=== PATIENT | female | born 1950 | race Caucasian/White ===

== ENCOUNTER → 2020-02-01 09:48 | Outpatient (BNVA) | payer MEDICARE, SELFPAY | PROVIDERS: PCP Internal Medicine; Visit Provider Internal Medicine Endocrinology, Diabetes & Metabolism | DX: Z13.89 Encounter for screening for other disorder (principal) | CPT/HCPCS: Q3014 ==

== ENCOUNTER 2020-02-10 08:00 | Outpatient (REF) | payer MEDICARE, SELFPAY ==
[2020-02-10 11:56] LABS: Alanine Aminotransferase 19 U/L (0-31); Albumin Level 4.6 g/dL (3.5-5.0); Alkaline Phosphatase 115 U/L (39-117); Anion Gap 12 (12-20); Aspartate Amino Transferase 18 U/L (5-31); Bilirubin Total 0.5 mg/dL (0.0-1.0); Blood Urea Nitrogen 15 mg/dL (9-16); Calcium 9.4 mg/dL (8.4-10.2); Carbon Dioxide 27 mmol/L (22-29); Chloride 104 mmol/L (96-108); Cholesterol 132 mg/dL; Estimated Glomerular Filt Rate > 60; Glucose Fasting 119 mg/dL (60-99); HDL Cholesterol 52 mg/dL; LDL Cholesterol Calculated 66 mg/dl; Potassium 4.3 mmol/l (3.3-5.1); Sodium 139 mmol/L (135-145); Total Protein 6.8 g/dL (6.5-8.0); Triglycerides 72 mg/dL
[2020-02-10 12:20] LABS: Free T4 (Free Thyroxine) 0.95 ng/dL (0.71-1.85); Thyroid Stimulating Hormone 1.66 uIU/mL (0.32-4.0)
[2020-02-10 12:24] LABS: Creatinine Urine 77.73 mg/dL; Microalbum/Creatinine Ratio Ur 7.7 ug/mg cr
[2020-02-10 13:01] LABS: Estimated Average Glucose 120 mg/dL; Hemoglobin A1c % 5.8 %
[2020-02-12 01:42] LABS: LDL Cholesterol Direct 66 mg/dL (<100)
== END 2020-02-10 08:01 | disposition home or self-care (01) ==
LOC: HO.HMGCLDS 08:00
PROVIDERS: PCP Internal Medicine; Referring Provider Internal Medicine; Visit Provider Internal Medicine Endocrinology, Diabetes & Metabolism
DX: E11.9 Type 2 diabetes mellitus without complications (principal); Z20.828 Contact with and (suspected) exposure to other viral communicable diseases
CPT/HCPCS: 80053; 80061; 82043; 83036; 83721; 84439; 84443; C9803; U0003

== ENCOUNTER 2020-05-30 09:26 | Outpatient (REF) | payer MEDICARE, SELFPAY | END 2020-05-30 09:27 | disposition home or self-care (01) | LOC: HO.LAB 09:26 | PROVIDERS: Visit Provider Nurse Practitioner Family | DX: Z13.89 Encounter for screening for other disorder (principal) ==

== ENCOUNTER 2020-06-07 11:37 | Outpatient (REF) | payer MEDICARE, SELFPAY | END 2020-06-07 11:38 | disposition home or self-care (01) | LOC: HO.LAB 11:37 | PROVIDERS: Visit Provider Nurse Practitioner Family | DX: Z13.89 Encounter for screening for other disorder (principal) ==

== ENCOUNTER 2020-06-07 11:40 | Outpatient (REF) | payer MEDICARE, SELFPAY ==
[2020-06-07 13:50] LABS: Basophils Absolute Auto 0.1 X10*3/uL (0.0-0.2); Basophils Percent Auto 0.8 % (0-2); Eosinophils Absolute Auto 0.4 X10*3/uL (0.0-0.4); Eosinophils Percent Auto 2.9 % (0-4); Hematocrit 42.4 % (37-47); Hemoglobin 13.8 g/dl (12.0-16.0); Imm Gran Abs Auto 0.03 X10*3/uL (0.00-0.03); Imm Gran Pct Auto 0.3 % (0.0-0.4); Lymphocytes Absolute Auto 2.2 X10*3/uL (1.2-4.9); Lymphocytes Percent Auto 18.8 % (20-40); MANUAL DIFF FLAG NO; Mean Corpuscular HGB Conc 32.5 g/dl (31.0-35.0); Mean Corpuscular Hemoglobin 30.2 pg (27.0-33.0); Mean Corpuscular Volume 92.8 fL (80-98); Mean Platelet Volume 9.1 fL (9.4-12.3); Monocytes Percent Auto 8.3 % (2-11); Neutrophils Absolute Auto 8.2 X10*3/uL (2.0-8.3); Neutrophils Percent Auto 68.9 % (45-73); Platelet Count 452 X10*3/uL (160-400); Red Blood Count 4.57 X10*6/uL (4.20-5.50); Red Cell Distribution Width 11.9 % (11.0-16.0); White Blood Count 11.9 X10*3/uL (4.8-10.8)
[2020-06-07 14:17] LABS: Alanine Aminotransferase 12 U/L (0-31); Albumin Level 4.6 g/dL (3.5-5.0); Alkaline Phosphatase 112 U/L (39-117); Anion Gap 18 (12-20); Aspartate Amino Transferase 15 U/L (5-31); Bilirubin Total 0.5 mg/dL (0.0-1.0); Blood Urea Nitrogen 15 mg/dL (9-16); Calcium 9.8 mg/dL (8.4-10.2); Carbon Dioxide 25 mmol/L (22-29); Chloride 100 mmol/L (96-108); Estimated Glomerular Filt Rate > 60; Glucose Random 119 mg/dL (60-115); Potassium 4.3 mmol/L (3.3-5.1); Sodium 139 mmol/L (135-145); Total Protein 7.1 g/dL (6.5-8.0)
== END 2020-06-07 11:41 | disposition home or self-care (01) ==
LOC: HO.HMGCLDS 11:40
PROVIDERS: PCP Internal Medicine; Visit Provider Nurse Practitioner Family
DX: R10.9 Unspecified abdominal pain (principal); R31.21 Asymptomatic microscopic hematuria
CPT/HCPCS: 36415; 80053; 85025

== ENCOUNTER 2020-06-07 14:21 | Outpatient (REF) | payer MEDICARE, SELFPAY ==
--- NOTE | ~2020-06-07 | US_ITS ---
EXAMINATION: US RETROPERITONEAL LIMITED (RENAL ONLY) CLINICAL INFORMATION: Microscopic hematuria. Left flank pain.. COMPARISON: None TECHNIQUE: Grayscale and color imaging of the kidneys FINDINGS: RIGHT KIDNEY: 11.6 x 4.1 x 4.6 cm (SAG x AP x TRV). The kidney is normal in size, contour, and echogenicity. Renal cortical thickness is normal. There is a 2 mm stone in mid pole. No focal parenchymal lesions. No hydronephrosis. LEFT KIDNEY: 12.1 x 4.9 x 5.6 cm (SAG x AP x TRV). The kidney is normal in size, contour, and echogenicity. Renal cortical thickness is normal. There is mild hydronephrosis. There is a 10 x 5 x 7 mm stone in the left UPJ region/proximal ureter. There is a 3 x 4 mm stone in the upper pole. No renal mass. US/US renal BI IMPRESSION: Mild left hydronephrosis from a 10 x 5 x 7 mm left UPJ stone. Small bilateral renal stones..
== END 2020-06-07 14:22 | disposition home or self-care (01) ==
LOC: HO.HMGCX 14:21
PROVIDERS: Visit Provider Nurse Practitioner Family
DX: R10.9 Unspecified abdominal pain (principal); R31.21 Asymptomatic microscopic hematuria
CPT/HCPCS: 76775

== ENCOUNTER → 2020-06-16 09:53 | Outpatient (BNVA) | payer MEDICARE, SELFPAY | PROVIDERS: PCP Internal Medicine; Visit Provider Urology | DX: N20.0 Calculus of kidney (principal) | CPT/HCPCS: Q3014 ==

== ENCOUNTER → 2020-07-05 09:46 | Outpatient (BNVA) | payer OTHER, SELFPAY | PROVIDERS: PCP Internal Medicine; Visit Provider Hospitalist | DX: J41.1 Mucopurulent chronic bronchitis (principal); K21.9 Gastro-esophageal reflux disease without esophagitis | CPT/HCPCS: 99212 ==

== ENCOUNTER 2020-07-12 07:36 | Day surgery (SDC) | payer OTHER, SELFPAY ==
[2020-07-06 13:28] VITALS: BMI 24.3
--- NOTE | 2020-07-11 12:19 | P.CONAN_ITS ---
Documented by User: Jackie Castellanos 07/11/20 12:21 HPI - Anesthesia Eval Consult details Narrative: 70yo F for Left Lithotripsy ESW No previous ESWL on record PMFSH Active Problems Active Problems: All Active Problems (Updated 07/06/20 @ 13:32 by Irina Fernandez) Hematuria (Acute) Flank pain (Acute) Renal stones (Acute) Hydronephrosis (Acute) Diabetic polyneuropathy associated with type 2 diabetes mellitus (Acute) Depression (Acute) GERD (gastroesophageal reflux disease) (Acute) COPD (chronic obstructive pulmonary disease) (Acute) Overweight (BMI 25.0-29.9) (Acute) Dyslipidemia (Acute) Vitamin D deficiency (Acute) Non-toxic multinodular goiter (Acute) Diabetes type 2, controlled (Acute) Past Medical History Medical History (Updated 07/12/20 @ 08:04 by Kathy Lewis) Back pain COPD (chronic obstructive pulmonary disease) Cough Depression Diabetes type 2, controlled Diabetic polyneuropathy associated with type 2 diabetes mellitus Dyslipidemia GERD (gastroesophageal reflux disease) Non-toxic multinodular goiter Overweight (BMI 25.0-29.9) Vitamin D deficiency Family History Family History Father No problems noted. Mother Uterine cancer Maternal Uncle Diabetes mellitus Maternal Aunt Diabetes mellitus Surgical History Surgical History History of ganglion cyst Hx of cholecystectomy Hx of hysterectomy Social History Social History Alcohol intake: never Smoking Status: Former smoker Are you DNR?: No Advance Directives: No Advance Directives Information Provided: No Advance Directives on File: No Meds Allergies Allergy/AdvReac Type Severity Reaction Status Date / Time albuterol Allergy Severe panic Verified 07/05/20 10:05 attacks naproxen Allergy Severe rash Verified 07/05/20 10:05 Home Medications Medication Instructions Recorded Confirmed Last Taken Type blood sugar diagnostic #10 ea 02/01/20 06/30/20 Unknown History 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 sensor #3 ea 02/01/20 06/30/20 Unknown History dorzolamide 2 % eye drops 1 drp OPHTHALMIC (EYE) BID 02/01/20 07/06/20 Unknown History lancets 28 gauge #100 ea 02/01/20 06/30/20 Unknown History umeclidinium 62.5 mcg/actuation 1 inh INHALATION DAILY PRN 02/01/20 07/06/20 Unknown History blister powder for inhalation aspirin [Aspir-81] 81 mg PO DAILY 07/06/20 07/06/20 Unknown History netarsudil-latanoprost [Rocklatan] 1 drp OPHTHALMIC (EYE) BEDTIME 07/06/20 07/06/20 Unknown History roflumilast [Daliresp] 1 tab PO DAILY 07/06/20 07/06/20 Unknown History Exam Exam Date and Time: July 11, 2020 1219 Height,Weight and Vital Signs: Height 5 ft 2 in Weight 60.328 kg Assessment and Plan Assessment Anesthesia Assessment: Chart Reviewed Documented by User: Kathy Lewis 07/12/20 08:36 [facility] Past Medical History Medical History (Updated 07/12/20 @ 08:04 by Kathy Lewis) Back pain COPD (chronic obstructive pulmonary disease) Cough Depression Diabetes type 2, controlled Diabetic polyneuropathy associated with type 2 diabetes mellitus Dyslipidemia GERD (gastroesophageal reflux disease) Non-toxic multinodular goiter Overweight (BMI 25.0-29.9) Vitamin D deficiency Family History Family History Father No problems noted. Mother Uterine cancer Maternal Uncle Diabetes mellitus Maternal Aunt Diabetes mellitus Family history of problems with anesthesia: No Surgical History Surgical History History of ganglion cyst Hx of cholecystectomy Hx of hysterectomy History of Problems with Anesthesia: No Social History Social History Alcohol intake: never Smoking Status: Former smoker Are you DNR?: No Advance Directives: No Advance Directives Information Provided: No Advance Directives on File: No Meds Allergies Allergy/AdvReac Type Severity Reaction Status Date / Time albuterol Allergy Severe panic Verified 07/05/20 10:05 attacks naproxen Allergy Severe rash Verified 07/05/20 10:05 Home Medications Medication Instructions Recorded Confirmed Last Taken Type blood sugar diagnostic #10 ea 02/01/20 06/30/20 Unknown History 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 sensor #3 ea 02/01/20 06/30/20 Unknown History dorzolamide 2 % eye drops 1 drp OPHTHALMIC (EYE) BID 02/01/20 07/06/20 Unknown History lancets 28 gauge #100 ea 02/01/20 06/30/20 Unknown History umeclidinium 62.5 mcg/actuation 1 inh INHALATION DAILY PRN 02/01/20 07/06/20 Unknown History blister powder for inhalation aspirin [Aspir-81] 81 mg PO DAILY 07/06/20 07/06/20 Unknown History netarsudil-latanoprost [Rocklatan] 1 drp OPHTHALMIC (EYE) BEDTIME 07/06/20 07/06/20 Unknown History roflumilast [Daliresp] 1 tab PO DAILY 07/06/20 07/06/20 Unknown History Exam Height,Weight and Vital Signs: Vital Signs Temp Pulse Resp BP Pulse Ox 07/12/20 08:00 98.4 F 84 20 157/69 H 96 Pertinent Lab Results Pertinent Lab Results: Lab Results 07/12/20 Range/Units 07:58 POC Glucose 120 H (60-115) mg/dL Airway Mallampati Class: II TM Dist: >3cm Neck ROM: Full Denture: Upper and Lower Heart: RRR Lungs: CTAB Assessment and Plan Assessment Anesthesia Assessment: Anesthesia Plan Discussed and Chart Reviewed Final Anesthetic Review NPO: Yes ASA Class: III Final Preanesthetic Review: No Changes in Pt Med Stat, Meds/Allgs Chart Reviewed, Consent Obtained/Reviewed and Anes Risks/Benef Reviewed Patient Risk: Intermediate Procedure Risk: Low Assessment/Block/Sedation in SS: Assess/Block/Sedation-SS Anesthetic Plan Anesthetic Plan: MAC: Disposition: Standard PACU
--- NOTE | ~2020-07-12 | XR_ITS ---
EXAMINATION: XR ABDOMEN KUB CLINICAL INDICATION: Stones COMPARISON: Previous renal ultrasound May 2020 TECHNIQUE: AP view of the abdomen. FINDINGS: There is a 5 x 7 mm density projecting over the central left kidney questionable for a stone. There are small bilateral pelvic calcifications, question representing calcified phleboliths. Bowel gas pattern is normal. There is mild curvature of the lower lumbar sacral spine to the right and degenerative change. XR/XR KUB IMPRESSION: 5 x 7 mm central left renal stone.
[2020-07-12 08:00] VITALS: BP 157/69; PULSE 84; RESP 20; TEMP 36.9; O2SAT 96
[2020-07-12 08:03] LABS: Glucose, Whole Blood 120 mg/dL (60-115)
[2020-07-12] MEDS: Lactated Ringers 1,000 ML 100 ML IVCONT (08:07)
[2020-07-12] MEDS: Acetaminophen 325 MG TABLET 650 MG PO (08:07)
--- NOTE | 2020-07-12 09:19 | MHC.SHP ---
Pre-Procedural Eval Section A The patient is an INPATIENT: No The History & Physical has been completed within 30 days and I have reviewed it.: Yes Section B Chief Complaint: calculus of kidney Allergies: Allergies Allergy/AdvReac Type Severity Reaction Status Date / Time albuterol Allergy Severe panic Verified 07/05/20 10:05 attacks naproxen Allergy Severe rash Verified 07/05/20 10:05 Plan Diagnosis/Plan: Unchanged (left ESWL) I have reviewed the history and physical and performed a pertinent physical examination on my patient. No changes have occurred unless specified.
[2020-07-12 10:04] VITALS: BP 157/65; PULSE 58; RESP 12; TEMP 36.6; O2SAT 97
[2020-07-12 10:19] VITALS: BP 156/69; PULSE 61; RESP 16; O2SAT 100
[2020-07-12 10:34] VITALS: BP 152/60; PULSE 56; RESP 16; TEMP 36.6; O2SAT 97
--- NOTE | 2021-06-28 14:40 | W.PM.OPN ---
Operative Note Operative Note Date of Service: 07/12/20 Narrative: PreOperative Diagnosis: Left Renal stones Post Operative Diagnosis: Left Renal stones Procedure: Left ESWL Surgeon: Dr Jona Lomax Anesthesia: mac/sedation Indications for procedure: The patient understands ESWL may be a staged procedure and subsequent intervention may be required based on imaging after ESWL. They also understand there is a risk of bleeding to the kidney, infection, damage to adjacent organs, and stone migration following the procedure. - Imaging left 8 mm stone upper pole Procedure: After informed consent was verified the patient was brought to the operating room and placed in a supine position. Anesthesia was performed per protocol. Safety pause time-out was performed. Imaging was displayed in the room and laterality confirmed. ESWL was performed. The 1st 500 shocks were performed at 60 hertz. These were performed with increasing power. Once maximum power was reached the rate was increased to 180 hertz. A total of 2500 shocks were given. Targetted imaging with ultrasound/fluoroscopy showed stone smudging suggestive of disintegration. The patient tolerated the procedure well and was transferred to the recovery area upon completion. Post procedure imaging will be organized. There was no evidence for flank discoloration.
== END 2020-07-12 11:10 | disposition home or self-care (01) ==
PROVIDERS: PCP Internal Medicine; Visit Provider Urology
PROC: (CPT 50590; principal; 2020-07-12 09:20)
DX: N20.0 Calculus of kidney (principal); J44.9 Chronic obstructive pulmonary disease, unspecified; E11.42 Type 2 diabetes mellitus with diabetic polyneuropathy; Z90.49 Acquired absence of other specified parts of digestive tract; Z87.891 Personal history of nicotine dependence; Z79.84 Long term (current) use of oral hypoglycemic drugs; Z79.899 Other long term (current) drug therapy; Z88.8 Allergy status to other drugs, medicaments and biological substances
CPT/HCPCS: 50590; 74018; 82947; J2250; J3010

== ENCOUNTER 2020-07-31 09:20 | Outpatient (REF) | payer OTHER, SELFPAY ==
--- NOTE | ~2020-07-31 | US_ITS ---
EXAMINATION: US RETROPERITONEAL LIMITED (RENAL ONLY) CLINICAL INFORMATION: Calculus of kidney. COMPARISON: KUB dated 07/12/2020. Renal ultrasound dated 06/07/2020. TECHNIQUE: Real-time imaging of the kidneys. FINDINGS: RIGHT KIDNEY: 11.7 x 4.3 x 6.2 cm (SAG x AP x TRV). The kidney is normal in size, contour, and echogenicity. Renal cortical thickness is normal. There were 2 small stones in the midpole measuring 4 mm and 3 mm. No focal parenchymal lesions or hydronephrosis. LEFT KIDNEY: 10.9 x 5.7 x 4.2 cm (SAG x AP x TRV). The kidney is normal in size, contour, and echogenicity. Renal cortical thickness is normal. There is question of a 1.4 x 1.1 x 1.1 cm peripelvic cyst in the lower pole. No renal calculi or hydronephrosis. US/US renal BI IMPRESSION: Question small right renal stones. No left renal stone seen. Previously identified left hydronephrosis has resolved.
== END 2020-07-31 09:21 | disposition home or self-care (01) ==
LOC: HO.US 09:20
PROVIDERS: Visit Provider Urology
DX: N20.0 Calculus of kidney (principal)
CPT/HCPCS: 76775

== ENCOUNTER → 2020-08-01 08:21 | Outpatient (BNVA) | payer OTHER, SELFPAY | PROVIDERS: PCP Internal Medicine; Visit Provider Internal Medicine Endocrinology, Diabetes & Metabolism | DX: E11.42 Type 2 diabetes mellitus with diabetic polyneuropathy (principal); E04.2 Nontoxic multinodular goiter; E55.9 Vitamin D deficiency, unspecified; E78.5 Hyperlipidemia, unspecified; E66.3 Overweight | CPT/HCPCS: 82947; 99212 ==

== ENCOUNTER → 2020-08-02 09:54 | Outpatient (BNVA) | payer OTHER, SELFPAY | PROVIDERS: PCP Internal Medicine; Visit Provider Urology | DX: Z13.89 Encounter for screening for other disorder (principal) | CPT/HCPCS: Q3014 ==

== ENCOUNTER 2020-11-28 09:59 | Outpatient (REF) | payer OTHER, SELFPAY ==
--- NOTE | ~2020-11-28 | US_ITS ---
EXAMINATION: US RETROPERITONEAL LIMITED (RENAL ONLY) CLINICAL INFORMATION: Calculus of kidney. COMPARISON: Renal ultrasound 07/31/2020 and 06/07/2020. X-ray abdomen KUB 07/12/2020. TECHNIQUE: Real-time imaging of the kidneys. FINDINGS: RIGHT KIDNEY: 11.6 x 5.2 x 6.6 cm (SAG x AP x TRV). The kidney is normal in size, contour, and echogenicity. Renal cortical thickness is normal. No focal parenchymal lesions or hydronephrosis. There are several echogenic stones in the midpole measuring 0.21 x 0.1 cm 0.20, 0.26 x 0.19 x 0.21 cm and 0.25 x 0.20 x 0.29 cm. There is no caliectasis or hydronephrosis. LEFT KIDNEY: 11.4 x 4.4 x 6.0 cm (SAG x AP x TRV). The kidney is normal in size, contour, and echogenicity. Renal cortical thickness is normal. No focal parenchymal lesions or hydronephrosis. There is an echogenic stone in midpole measuring 0.26 x 0.27 x 0.24 cm. A right ureteral jet is visualized. A left ureteral jet is not visualized in the bladder the bladder was not imaged. US/US renal BI IMPRESSION: Bilateral nonobstructive echogenic midpole renal calculi. No caliectasis or nephrosis. Left ureteral jet was not seen in the bladder. Right ureteral jet was seen.
== END 2020-11-28 10:00 | disposition home or self-care (01) ==
LOC: HO.HMGCX 09:59
PROVIDERS: PCP Internal Medicine; Visit Provider Urology
DX: N20.0 Calculus of kidney (principal)
CPT/HCPCS: 76775

== ENCOUNTER → 2020-12-13 12:45 | Outpatient (BNVA) | payer OTHER, SELFPAY | PROVIDERS: Visit Provider Urology | DX: Z13.89 Encounter for screening for other disorder (principal) | CPT/HCPCS: Q3014 ==

== ENCOUNTER 2021-01-22 09:59 | Outpatient (REF) | payer OTHER, SELFPAY ==
--- NOTE | ~2021-01-22 | US_ITS ---
EXAMINATION: US THYROID CLINICAL INFORMATION: Nontoxic multinodular goiter. COMPARISON: Thyroid ultrasound 11/25/2019 and 07/28/2018. TECHNIQUE: Linear transducer grayscale and color Doppler examination with attention to the region of the thyroid. FINDINGS: SIZE: Measurements of the thyroid lobes and nodules are given in sagittal, anteroposterior and transverse dimensions respectively. Right Thyroid Lobe: 4.4 x 1.5 x 1.3 cm, volume 4.5 mL. Previously 4.2 x 1.5 x 1.3 cm, volume 4.2 mL. Parenchyma: The gland echotexture is homogeneous. Thyroid vascularity is increased. Left Thyroid Lobe: 3.4 x 1.5 x 1.3 cm, volume 3.5 mL. Previously 3.6 x 1.2 x 1.0 cm, volume 2.3 mL. Parenchyma: The gland echotexture is homogeneous. Thyroid vascularity is normal. Isthmus: 0.3 cm in maximum AP dimension. Previously 0.2 cm. There are multiple bilateral thyroid nodules. Estimated total number of nodules greater than or equal to 1 cm: 1. Copier Operator nodules are described as follows: 1. Location: Right mid pole. Size: 0.6 x 0.4 x 0.5 cm, volume 0.06 mL. Previously: 0.5 x 0.3 x 0.4 cm, volume 0.03 mL. Nodule characteristics: Composition: Mixed cystic and solid (1). Echogenicity: Anechoic (0). Shape: Not taller than wide (0). Margins: The Echogenic Foci: Punctate echogenic foci (3). ACR TI-RADS total points: 4 ACR TI-RADS category: 4 Significant change in size (>/= 20% in 2 dimensions and minimal increase of 2 mm or 50% or greater increase in volume): Change in features: Change in ACR TI-RADS risk category: 2. Location: Right low/lateral. Size: 1.4 x 0.8 x 0.8 cm, volume 0.44 mL. Previously: 1.3 x 0.8 x 0.8 cm, volume 0.44 mL. Nodule characteristics: Composition: Solid/almost completely solid (2). Echogenicity: Cannot be determined (1). Shape: Not taller than wide (0). Margins: Smooth (0). Echogenic Foci: Punctate echogenic foci (3). ACR TI-RADS total points: 6 ACR TI-RADS category: 4 Significant change in size (>/= 20% in 2 dimensions and minimal increase of 2 mm or 50% or greater increase in volume): Change in features: Change in ACR TI-RADS risk category: 3. Location: Left upper pole. Size: 0.8 x 0.6 x 0.7 cm, volume 0.17 mL. Previously: 0.8 x 0.6 x 0.7 cm, volume 0.17 mL. Nodule characteristics: Composition: Mixed cystic and solid (1). Echogenicity: Hypoechoic (2). Shape: Not taller than wide (0). Margins: Smooth (0). Echogenic Foci: Punctate echogenic foci (3). ACR TI-RADS total points: 6 ACR TI-RADS category: 4 Significant change in size (>/= 20% in 2 dimensions and minimal increase of 2 mm or 50% or greater increase in volume): Change in features: Change in ACR TI-RADS risk category: 4. Location: Left lower pole. Size: 0.6 x 0.3 x 0.4 cm, volume 0.04 mL. Previously: 0.5 x 0.3 x 0.4 cm, volume 0.03 mL. Nodule characteristics: Composition: Spongiform (0). ACR TI-RADS total points: 0 ACR TI-RADS category: 1 Significant change in size (>/= 20% in 2 dimensions and minimal increase of 2 mm or 50% or greater increase in volume): Change in features: Change in ACR TI-RADS risk category: 5. Location: Right isthmus. Size: 0.6 x 0.3 x 0.6 cm, volume 0.06 mL. Previously: 0.6 x 0.3 x 0.7 cm, volume 0.07 mL. Nodule characteristics: Composition: Cystic(0). ACR TI-RADS total points: 0 ACR TI-RADS category: 1 Significant change in size (>/= 20% in 2 dimensions and minimal increase of 2 mm or 50% or greater increase in volume): Change in features: Change in ACR TI-RADS risk category: NODES: No lymphadenopathy is seen in the tissue surrounding the thyroid gland. US/US thyroid IMPRESSION: Stable bilateral thyroid nodules. According to the TI RADS criteria, fine-needle aspirations of the nodule in the lower pole of the right lobe and ultrasound follow-up of the nodule in the upper pole of the left lobe recommended. ACR TI-RADS RECOMMENDATION REFERENCE: Ultrasound-guided fine-needle aspiration, followup ultrasound, no further follow up. * TR1 (0 point) and TR 2 (2 points): No FNA or follow up * TR3 (3 points): FNA if more than or equal to 2.5 cm in maximum dimension, followup ultrasound in 1, 3 and 5 years if 1.5 to 2.4 cm in maximum dimension. * TR4 (4-6 points): FNA if more than or equal to 1.5 cm in maximum dimension, followup ultrasound in 1, 2, 3 and 5 years if 1 to 1.4 cm in maximum dimension. * TR5 (more than or equal to 7 points): FNA if more than or equal to 1 cm in maximum dimension, followup ultrasound every year for 5 years if 0.5 to 0.9 cm in maximum dimension. * TR3, TR4 or TR5 nodules that are below the size threshold for follow up receive no follow up.
== END 2021-01-22 10:00 | disposition home or self-care (01) ==
LOC: HO.HMGCX 09:59
PROVIDERS: PCP Internal Medicine; Visit Provider Internal Medicine
DX: E04.2 Nontoxic multinodular goiter (principal)
CPT/HCPCS: 76536

== ENCOUNTER → 2021-02-08 08:49 | Outpatient (BNVA) | payer OTHER, SELFPAY | PROVIDERS: PCP Internal Medicine; Visit Provider Internal Medicine | DX: E04.2 Nontoxic multinodular goiter (principal) | CPT/HCPCS: 99212 ==

== ENCOUNTER 2021-05-10 09:45 | Outpatient (REF) | payer OTHER, SELFPAY ==
--- NOTE | ~2021-05-10 | US_ITS ---
EXAMINATION: US RETROPERITONEAL LIMITED (RENAL ONLY) CLINICAL INFORMATION: Calculus of kidney. COMPARISON: Renal ultrasound 11/28/2020 and 07/31/2020 TECHNIQUE: Real-time imaging of the kidneys. FINDINGS: RIGHT KIDNEY: 12.4 x 3.6 x 6.3 cm (SAG x AP x TRV). The kidney is normal in size, contour, and echogenicity. Renal cortical thickness is normal. No focal parenchymal lesions or hydronephrosis. Echogenic structures likely nonobstructing stones measuring up to 2 mm and 3 mm middle pole. LEFT KIDNEY: 10.0 x 3.7 x 4.9 cm (SAG x AP x TRV). The kidney is normal in size, contour, and echogenicity. Renal cortical thickness is normal. No focal parenchymal lesions or hydronephrosis. Echogenic structures in the left kidney likely nonobstructing stone mostly middle pole measuring up to 3 mm and 3 mm. US/US renal BI IMPRESSION: Bilateral nonobstructing kidney stones. No hydronephrosis..
== END 2021-05-10 09:46 | disposition home or self-care (01) ==
LOC: HO.HMGCX 09:45
PROVIDERS: Visit Provider Urology
DX: N20.0 Calculus of kidney (principal)
CPT/HCPCS: 76775

== ENCOUNTER → 2021-06-14 14:00 | Outpatient (BNVA) | payer OTHER, SELFPAY | DX: N20.0 Calculus of kidney (principal); E11.42 Type 2 diabetes mellitus with diabetic polyneuropathy; E78.5 Hyperlipidemia, unspecified; E55.9 Vitamin D deficiency, unspecified; E66.3 Overweight; Z87.891 Personal history of nicotine dependence; Z88.8 Allergy status to other drugs, medicaments and biological substances | CPT/HCPCS: 99212 ==

== ENCOUNTER 2021-07-05 09:47 | Outpatient (REF) | payer OTHER, SELFPAY ==
--- NOTE | 2021-07-05 13:51 | PFT_ITS ---
INDICATION: COPD. SPIROMETRY: The FEV1 to FVC of 63% with an FEV1 of 2.25 L, which is 106% predicted, an FVC of 3.57 L which is 127% predicted. No significant response to bronchodilators noted. Maximum voluntary ventilation 105% predicted. LUNG VOLUMES: Total lung capacity 111% predicted. DIFFUSION CAPACITY: DLCO 66% predicted. COMPARISONS: None available. INTERPRETATION: There is an obstructive ventilatory defect consistent with mild COPD. No significant response to bronchodilators noted. The patient does have some evidence of small airways disease. Maximum voluntary ventilation is within normal limits. Lung volumes are also within normal limits. The patient does have a mild diffusion impairment. Clinical correlation is warranted. Alen Colin MD MR/MODL / [id number]
== END 2021-07-05 09:48 | disposition home or self-care (01) ==
LOC: HO.RESP 09:47
PROVIDERS: PCP Internal Medicine; Visit Provider Hospitalist
DX: J41.1 Mucopurulent chronic bronchitis (principal); R91.8 Other nonspecific abnormal finding of lung field; K21.9 Gastro-esophageal reflux disease without esophagitis
CPT/HCPCS: 94060; 94727; 94729; 99212

== ENCOUNTER 2021-07-10 12:48 | Outpatient (REF) | payer OTHER, SELFPAY ==
[2021-07-10 13:43] LABS: MANUAL DIFF FLAG NO
[2021-07-10 13:50] LABS: Appearance Urine CLEAR; Basophils Percent Auto 0.5 % (0-2); Color Urine YELLOW; Eosinophils Absolute Auto 0.2 X10*3/uL (0.0-0.4); Eosinophils Percent Auto 2.9 % (0-4); Glucose Urine UA NEG (NEG); Hematocrit 38.6 % (37.0-47.0); Hemoglobin 12.9 g/dl (12.0-16.0); Imm Gran Abs Auto 0.02 X10*3/uL (0.00-0.03); Imm Gran Pct Auto 0.3 % (0.0-0.4); Leukocyte Esterase Urine NEG (NEG); Lymphocytes Absolute Auto 2.4 X10*3/uL (1.2-4.9); Lymphocytes Percent Auto 31.3 % (20-40); Mean Corpuscular HGB Conc 33.4 g/dl (31.0-35.0); Mean Corpuscular Hemoglobin 30.9 pg (27.0-33.0); Mean Corpuscular Volume 92.3 fL (80.0-98.0); Mean Platelet Volume 8.8 fL (9.4-12.3); Monocytes Absolute Auto 0.7 X10*3/uL (0.1-1.2); Monocytes Percent Auto 8.8 % (2-11); Neutrophils Absolute Auto 4.2 x10*3/uL (2.0-8.3); Neutrophils Percent Auto 56.2 % (45-73); Nitrite Urine NEG (NEG); Platelet Count 364 X10*3/uL (160-400); Red Blood Count 4.18 X10*6/uL (4.20-5.50); Specific Gravity - Urine 1.025 (1.005-1.025); Urine Blood NEG (NEG); Urine Ketones 5 MG/DL (NEG); Urine Protein NEG (NEG-TRACE); White Blood Count 7.5 X10*3/uL (4.8-10.8)
[2021-07-10 13:59] LABS: Estimated Average Glucose 117 mg/dL; Hemoglobin A1c % 5.7 %
[2021-07-10 14:01] LABS: Alanine Aminotransferase 27 U/L (0-31); Albumin Level 4.2 g/dL (3.5-5.0); Alkaline Phosphatase 101 U/L (39-117); Anion Gap 13 (12-20); Aspartate Amino Transferase 23 U/L (5-31); Bilirubin Total 0.3 mg/dL (0.0-1.0); Blood Urea Nitrogen 11 mg/dL (9-16); Calcium 9.7 mg/dL (8.4-10.2); Carbon Dioxide 24 mmol/L (22-29); Chloride 104 mmol/L (96-108); Estimated Glomerular Filt Rate > 60; Glucose Random 124 mg/dL (60-115); Potassium 3.9 mmol/L (3.3-5.1); Sodium 137 mmol/L (135-145); Total Protein 6.5 g/dL (6.5-8.0)
[2021-07-10 14:40] LABS: Creatinine Urine 117.26 mg/dL
[2021-07-12 06:56] LABS: LDL Cholesterol Direct 48 mg/dL (<100)
== END 2021-07-10 12:49 | disposition home or self-care (01) ==
LOC: HO.HMGCLDS 12:48
PROVIDERS: PCP Internal Medicine; Visit Provider Internal Medicine
DX: Z00.01 Encounter for general adult medical examination with abnormal findings (principal); E78.9 Disorder of lipoprotein metabolism, unspecified; F41.1 Generalized anxiety disorder; J44.9 Chronic obstructive pulmonary disease, unspecified; E11.42 Type 2 diabetes mellitus with diabetic polyneuropathy
CPT/HCPCS: 36415; 80053; 81003; 82043; 83036; 83721; 85025

== ENCOUNTER 2021-08-31 09:31 | Outpatient (REF) | payer OTHER, SELFPAY ==
--- NOTE | ~2021-08-31 | MM_ITS ---
EXAMINATION: MM SCREENING DIGITAL BREAST TOMOSYNTHESIS, BILATERAL CLINICAL INFORMATION: Screening. Asymptomatic. The lifetime risk of breast cancer based on the Tyrer-Cuzick Model is 2%. COMPARISON: Mammography: 08/25/2019, 08/19/2018, 08/18/2017 TECHNIQUE: Digital breast tomosynthesis is performed in both the craniocaudal and mediolateral oblique views along with computer-aided detection (CAD). Synthesized 2D images are generated from the tomosynthesis. FINDINGS: There are scattered areas of fibroglandular density (ACR BI-RADS breast composition Category b). There are no significant masses, abnormal calcifications, or other abnormalities. Parenchymal pattern is similar to prior studies. No significant changes. MM/MM tomosynthesis screening BI IMPRESSION: No mammographic evidence of malignancy. ASSESSMENT: BI-RADS 1: Negative RECOMMENDATION: Routine annual mammography screening. This patient's information was entered into a reminder system with a target due date for their next mammogram.
== END 2021-08-31 09:32 | disposition home or self-care (01) ==
LOC: HO.MAMMO 09:31
PROVIDERS: PCP Internal Medicine; Visit Provider Internal Medicine
DX: Z12.31 Encounter for screening mammogram for malignant neoplasm of breast (principal)
CPT/HCPCS: 77063; 77067

== ENCOUNTER 2021-09-24 10:57 | Outpatient (REF) | payer OTHER, SELFPAY ==
[2021-09-27 12:26] LABS: HPV mRNA E6/E7 rflx Not Detected (Not Detected)
== END 2021-09-24 10:58 | disposition home or self-care (01) ==
LOC: HO.LAB 10:57
PROVIDERS: Visit Provider Advanced Practice Midwife
DX: Z01.419 Encounter for gynecological examination (general) (routine) without abnormal findings (principal); Z11.51 Encounter for screening for human papillomavirus (HPV)
CPT/HCPCS: 87624; 88142

== ENCOUNTER 2021-09-28 09:26 | Outpatient (REF) | payer OTHER, SELFPAY ==
--- NOTE | ~2021-09-28 | MM_ITS ---
EXAMINATION: BONE DENSITOMETRY CLINICAL INDICATION: Encounter further screening for malignant neoplasm. COMPARISON: This is the patient's baseline examination. TECHNIQUE: Using a [employer] [place] DXA System (software version: 13.1) manufactured by [employer], dual-energy x-ray absorptiometry was performed of the lumbar spine and left hip. The images are of good technical quality. Summary results are attached. FINDINGS: AP SPINE L1-L3 (excluding L4): The data of L1-L4 has been changed to exclude the L4 vertebral body, because degenerative sclerosis at this level may cause overestimation of lumbar spine density. BMD 0.777 g/cm2, Z-score -1.6, T-score -3.3, osteoporosis. LEFT FEMUR, NECK: BMD 0.704 g/cm2, Z-score -0.7, T-score -2.4, osteopenia. LEFT FEMUR, TOTAL: BMD 0.766 g/cm2, Z-score -0.5, T-score -1.9, osteopenia. IDENTIFIED RISK FACTORS: Early menopause, secondary osteoporosis, hysterectomy, bilateral oophorectomy. HISTORY OF FRACTURE: None listed. MEDICATIONS: Vitamin D. MM/XR DEXA axial skeleton IMPRESSION: 1. DIAGNOSIS: Osteoporosis based on the lowest T-score value of -3.3 in the lumbar spine applying World Health Organization criteria. 2. 10-YEAR FRACTURE RISK PREDICTION, FRAX: Major osteoporotic fracture (clinical spine, forearm, hip or shoulder) 14.2%. Hip fracture 3.4%. 3. Treatment Recommendations: NOF guidelines recommend consideration for treatment in postmenopausal women and men age 50 and older presenting with the following: -A hip or vertebral (clinical or morphometric) fracture. -T-score less than or equal to -2.5 at the femoral neck or spine after appropriate evaluation to exclude secondary causes. -Low bone mass at the hip or spine and a 10-year fracture probability by FRAX of greater than or equal to 3% for hip fracture or greater than or equal to 20% for major osteoporotic fracture based on the [place] adapted WHO algorithm. 4. Other Recommendations: All treatment decisions require clinical judgment and consideration of individual patient factors, including patient preferences, comorbidities, previous drug use, risk factors not captured in the FRAX model (e.g. frailty, falls, vitamin D deficiency, increased bone turnover, interval significant decline in bone density) and possible under or overestimation of fracture risk by FRAX. Additional medical evaluation for secondary cause of low bone mineral density may be appropriate. FUTURE SCAN RECOMMENDATION: People with diagnosed cases of osteoporosis or at high risk for fracture should have regular bone mineral density tests. For patients eligible for Medicare, routine testing is allowed once every 2 years. The testing frequency can be increased to one year for patients who have rapidly progressing disease, those who are receiving or discontinuing medical therapy to restore bone mass, or have additional risk factors.
== END 2021-09-28 09:27 | disposition home or self-care (01) ==
LOC: HO.MAMMO 09:26
PROVIDERS: Visit Provider Internal Medicine
DX: Z13.820 Encounter for screening for osteoporosis (principal); Z78.0 Asymptomatic menopausal state; Z90.710 Acquired absence of both cervix and uterus; Z90.722 Acquired absence of ovaries, bilateral
CPT/HCPCS: 77080

== ENCOUNTER 2021-11-29 09:53 | Outpatient (REF) | payer OTHER, SELFPAY ==
--- NOTE | ~2021-11-29 | US_ITS ---
EXAMINATION: US RETROPERITONEAL LIMITED (RENAL ONLY) CLINICAL INFORMATION: Calculus of kidney. COMPARISON: Ultrasound retroperitoneal limited (renal only) 05/10/2021 and 11/28/2020. X-ray abdomen KUB 07/12/2020. TECHNIQUE: Real-time imaging of the kidneys. FINDINGS: RIGHT KIDNEY: 10.8 x 4.1 x 5.1 cm (SAG x AP x TRV). The kidney is normal in size, contour, and echogenicity. Renal cortical thickness is normal. No focal parenchymal lesions or hydronephrosis. At the upper pole, a 3 mm nonobstructing calculus is seen. At the interpolar aspect, 2 mm and 2 mm nonobstructing calculi are seen. At the lower pole, a 2 mm nonobstructing calculus is seen. LEFT KIDNEY: 10.6 x 3.6 x 5.2 cm (SAG x AP x TRV). The kidney is normal in size, contour, and echogenicity. Renal cortical thickness is normal. No hydronephrosis. At the interpolar aspect, a 3 mm, 4 mm and 3 mm nonobstructing calculi are seen. At the interpolar aspect, a 1.2 cm in maximal diameter simple cyst is seen. US/US renal BI IMPRESSION: 1. Multiple nonobstructing bilateral renal calculi are seen. There is no hydronephrosis noted bilaterally. 2. A 1.2 cm in maximal diameter simple left renal cyst is of incidental note. This is a benign finding, for which no imaging follow-up is recommended.
== END 2021-11-29 09:54 | disposition home or self-care (01) ==
LOC: HO.HMGCX 09:53
PROVIDERS: PCP Internal Medicine
DX: N20.0 Calculus of kidney (principal)
CPT/HCPCS: 76775

== ENCOUNTER 2022-01-03 10:39 | Outpatient (REF) | payer OTHER, SELFPAY ==
[2022-01-08 16:02] LABS: HPV mRNA E6/E7 rflx Not Detected (Not Detected)
== END 2022-01-03 10:40 | disposition home or self-care (01) ==
LOC: HO.LNP 10:39
PROVIDERS: Visit Provider Advanced Practice Midwife
DX: R87.615 Unsatisfactory cytologic smear of cervix (principal); Z85.41 Personal history of malignant neoplasm of cervix uteri
CPT/HCPCS: 87624; 88142; 99212

== ENCOUNTER → 2022-01-07 09:43 | Outpatient (BNVA) | payer OTHER, SELFPAY | PROVIDERS: PCP Internal Medicine; Visit Provider Hospitalist | DX: J41.1 Mucopurulent chronic bronchitis (principal); K21.9 Gastro-esophageal reflux disease without esophagitis; R91.8 Other nonspecific abnormal finding of lung field | CPT/HCPCS: 99212 ==

== ENCOUNTER 2022-01-29 11:15 | Outpatient (REF) | payer OTHER, SELFPAY ==
--- NOTE | ~2022-01-29 | US_ITS ---
EXAMINATION: US THYROID CLINICAL INFORMATION: Nontoxic multinodular goiter. COMPARISON: Ultrasound soft tissue head/neck thyroid dated 01/22/2021 TECHNIQUE: Linear transducer grayscale and color Doppler examination with attention to the region of the thyroid. FINDINGS: SIZE: Measurements of the thyroid lobes and nodules are given in sagittal, anteroposterior and transverse dimensions respectively. Right Thyroid Lobe: 4.9 x 1.5 x 1.4 cm, volume 5.4 mL. Previously 4.4 x 1.5 x 1.3 cm, volume 4.5 mL. Parenchyma: The gland echotexture is heterogeneous. Thyroid vascularity is increased. Left Thyroid Lobe: 4.2 x 1.2 x 1.2 cm, volume 3.0 mL. Previously 3.4 x 1.5 x 1.3 cm, volume 3.5 mL. Parenchyma: The gland echotexture is heterogeneous. Thyroid vascularity is increased. Isthmus: 0.39 cm in maximum AP dimension. Previously 0.30 cm. Estimated total number of nodules greater than or equal to 1 cm: 1. Research Administrator nodules are described as follows: 1. Location: Isthmus. Size: 0.52 x 0.25 x 0.39 cm, volume 0.03 mL. Previously: 0.60 x 0.30 x 0.60 cm, volume 0.06 mL. Nodule characteristics: Composition: Solid/almost completely solid (2). Echogenicity: Hypoechoic (2). Shape: Not taller than wide (0). Margins: Smooth (0). Echogenic Foci: None (0). ACR TI-RADS total points: 4 ACR TI-RADS category: 4 Significant change in size (>/= 20% in 2 dimensions and minimal increase of 2 mm or 50% or greater increase in volume): No 2. Location: Right mid. Size: 0.55 x 0.29 x 0.49 cm, volume 0.04 mL. Previously: Not recorded on the previous study. Nodule characteristics: Composition: Solid/almost completely solid (2). Echogenicity: Hypoechoic (2). Shape: Not taller than wide (0). Margins: Smooth (0). Echogenic Foci: None (0). ACR TI-RADS total points: 4 ACR TI-RADS category: 4 3. Location: Right mid. Size: 0.60 x 0.37 x 0.56 cm, volume 0.07 mL. Previously: 0.60 x 0.40 x 0.50 cm, volume 0.06 mL. Nodule characteristics: Composition: Mixed cystic and solid (1). Echogenicity: Hypoechoic (2). Shape: Not taller than wide (0). Margins: Smooth (0). Echogenic Foci: Comet-tail artifacts (0). ACR TI-RADS total points: 3 ACR TI-RADS category: 3 Significant change in size (>/= 20% in 2 dimensions and minimal increase of 2 mm or 50% or greater increase in volume): No 4. Location: Right mid. Size: 1.4 x 0.71 x 0.82 cm, volume 0.42 mL. Previously: 1.4 x 0.80 x 0.80 cm, volume 0.44 mL. Nodule characteristics: Composition: Spongiform (0). ACR TI-RADS total points: 0 ACR TI-RADS category: 1 Significant change in size (>/= 20% in 2 dimensions and minimal increase of 2 mm or 50% or greater increase in volume): No 5. Location: Left superior. Size: 0.95 x 0.75 x 0.64 cm, volume 0.24 mL. Previously: 0.80 x 0.60 x 0.70 cm, volume 0.17 mL. Nodule characteristics: Composition: Mixed cystic and solid (1). Echogenicity: Hypoechoic (2). Shape: Not taller than wide (0). Margins: Smooth (0). Echogenic Foci: Punctate echogenic foci (3). ACR TI-RADS total points: 6 ACR TI-RADS category: 4 Significant change in size (>/= 20% in 2 dimensions and minimal increase of 2 mm or 50% or greater increase in volume): No NODES: No lymphadenopathy is seen in the tissue surrounding the thyroid gland. US/US thyroid IMPRESSION: A 1.0 cm TR 4 left superior thyroid nodule meets criteria for continued surveillance, not significant changed in size from prior. Remainder of thyroid nodules do not meet criteria for follow-up. ACR TI-RADS RECOMMENDATION REFERENCE: Ultrasound-guided fine-needle aspiration, followup ultrasound, no further follow up. * TR1 (0 point) and TR 2 (2 points): No FNA or follow up * TR3 (3 points): FNA if more than or equal to 2.5 cm in maximum dimension, followup ultrasound in 1, 3 and 5 years if 1.5 to 2.4 cm in maximum dimension. * TR4 (4-6 points): FNA if more than or equal to 1.5 cm in maximum dimension, followup ultrasound in 1, 2, 3 and 5 years if 1 to 1.4 cm in maximum dimension. * TR5 (more than or equal to 7 points): FNA if more than or equal to 1 cm in maximum dimension, followup ultrasound every year for 5 years if 0.5 to 0.9 cm in maximum dimension. * TR3, TR4 or TR5 nodules that are below the size threshold for follow up receive no follow up.
== END 2022-01-29 11:16 | disposition home or self-care (01) ==
LOC: HO.HMGCX 11:15
PROVIDERS: PCP Internal Medicine; Visit Provider Internal Medicine
DX: E04.2 Nontoxic multinodular goiter (principal)
CPT/HCPCS: 76536

== ENCOUNTER 2022-02-15 09:46 | Outpatient (REF) | payer OTHER, SELFPAY ==
[2022-02-15 11:22] LABS: Estimated Average Glucose 126 mg/dL
[2022-02-15 11:22] LABS: Creatinine Urine 56.03 mg/dL; Microalbum/Creatinine Ratio Ur 14.2 ug/mg cr
[2022-02-15 11:46] LABS: Alanine Aminotransferase 25 U/L (0-31); Albumin Level 4.4 g/dL (3.5-5.0); Alkaline Phosphatase 93 U/L (39-117); Anion Gap 11 (12-20); Aspartate Amino Transferase 23 U/L (5-31); Blood Urea Nitrogen 14 mg/dL (9-16); Calcium 9.8 mg/dL (8.4-10.2); Carbon Dioxide 27 mmol/L (22-29); Chloride 104 mmol/L (96-108); Estimated Glomerular Filt Rate > 60; Glucose Random 108 mg/dL (60-115); Potassium 4.6 mmol/L (3.3-5.1); Sodium 137 mmol/L (135-145); Total Protein 6.8 g/dL (6.5-8.0)
[2022-02-15 12:11] LABS: Bilirubin Total 0.4 mg/dL (0.0-1.0); Thyroid Stimulating Hormone 1.33 uIU/mL (0.32-4.0)
[2022-02-15 12:45] LABS: Free T4 (Free Thyroxine) 0.96 ng/dL (0.71-1.85)
[2022-02-17 04:59] LABS: LDL Cholesterol Direct 54 mg/dL (<100)
== END 2022-02-15 09:47 | disposition home or self-care (01) ==
LOC: HO.10HDL 09:46
PROVIDERS: Absent Provider Internal Medicine Endocrinology, Diabetes & Metabolism; Visit Provider Internal Medicine
DX: E11.42 Type 2 diabetes mellitus with diabetic polyneuropathy (principal); E04.2 Nontoxic multinodular goiter; E78.5 Hyperlipidemia, unspecified; F41.1 Generalized anxiety disorder; J44.9 Chronic obstructive pulmonary disease, unspecified; K21.9 Gastro-esophageal reflux disease without esophagitis; N20.0 Calculus of kidney; Z79.84 Long term (current) use of oral hypoglycemic drugs; Z79.899 Other long term (current) drug therapy
CPT/HCPCS: 36415; 80053; 82043; 83036; 83721; 84439; 84443; 99212

== ENCOUNTER → 2022-02-21 13:47 | Outpatient (BNVA) | payer OTHER, SELFPAY | PROVIDERS: PCP Internal Medicine; Visit Provider Urology | DX: N20.0 Calculus of kidney (principal); E11.65 Type 2 diabetes mellitus with hyperglycemia; E11.42 Type 2 diabetes mellitus with diabetic polyneuropathy; Z79.82 Long term (current) use of aspirin; Z79.899 Other long term (current) drug therapy; Z79.4 Long term (current) use of insulin | CPT/HCPCS: Q3014 ==

== ENCOUNTER 2022-06-11 11:00 | Outpatient (RCR) | payer OTHER, SELFPAY ==
--- NOTE | 2022-05-23 11:50 | MHC.OT.EP ---
[address] [phone] Occupational Therapy Plan of Care Patient Name: Porsche Powers Date of Evaluation: 05/23/22 Diagnosis: Pain in left hand Pain Location: L base of thumb and dorsal wrist . Sharp brief , radial thumb to dorsal wrist and hand. A few times a week. Pain Score: 7 Pain Scale Used: Numeric (0 - 10) Aggravating Factors: Unknown. Could be watching TV or driving car... Alleviating Factors: Stops on its own Assessment: Pt is a 71 yo female a ho left thumb and wrist pain worsening after a fall in her home ~4 wks ago. Today she presents with significant thenar ms wasting with a negative Phalens sign and carpal compression test and intermittent brief sharp thumb and wrist pain . She reports a 35% limitation due to left hand weakness and pain primarily with forceful gripping Pt will benefit from OT for improving left hand and wrist pain and improving strength for increased ease with daily activities and prevent worsening of sx She may benefit from further testing to RO CTS Frequency and Duration: The patient will be seen 2x wk x 4 wks Short Term Goals: Demo knowledge of joint protection techniques with daily activities Report use of AD for jt protection with container opening Report use of modified tech with holding devices and heavy lifting Demo indep with HEP for left hand strengthening Demo pain-free wrist ROM 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 Thank you once again for your referral.
== END 2022-07-17 10:57 | disposition home or self-care (01) ==
LOC: HO.OT 11:00
PROVIDERS: PCP Internal Medicine; Visit Provider Internal Medicine
DX: M79.642 Pain in left hand (principal)
CPT/HCPCS: 97110; 97112; 97166

== ENCOUNTER 2022-07-18 11:00 | Outpatient (RCR) | payer OTHER, SELFPAY ==
--- NOTE | 2022-07-18 17:13 | MHC.PT.DC ---
[facility] [place] Office [place] Office [place] Office [address] Elizabeth Zacarias [address] [phone] F: [phone] F: [phone] F: [phone] F: [phone] Physical Therapy Discharge Report Diagnosis: R shoulder pain. Date of Surgery: Date of Evaluation: 05/30/22 Date of Discharge: 07/18/22 Treatments to Date: 10 Cancellations to Date: No Shows to Date: Discharge Status: Improved Function Independent with HEP Discharge Summary: 07/18: Pt I with her home program, met most of her therapeutic goals, is improved of her Sx and in agreement with DC at this time. Electronically signed by: Atilio Prado PT. Please sign and return to therapist. Thank you for your referral.
== END 2022-07-18 17:13 | disposition home or self-care (01) ==
LOC: HO.PTCHIC 11:00
PROVIDERS: PCP Internal Medicine; Visit Provider Internal Medicine
DX: M25.511 Pain in right shoulder (principal)
CPT/HCPCS: 97110; 97140; 97161

== ENCOUNTER 2022-09-05 08:32 | Outpatient (REF) | payer OTHER, SELFPAY ==
[2022-09-05 11:14] LABS: Basophils Absolute Auto 0.1 X10*3/uL (0.0-0.2); Basophils Percent Auto 0.7 % (0-2); Eosinophils Absolute Auto 0.4 X10*3/uL (0.0-0.4); Eosinophils Percent Auto 3.3 % (0-4); Hematocrit 40.7 % (37.0-47.0); Hemoglobin 13.3 g/dl (12.0-16.0); Imm Gran Abs Auto 0.02 X10*3/uL (0.00-0.03); Imm Gran Pct Auto 0.2 % (0.0-0.4); Lymphocytes Absolute Auto 2.7 X10*3/uL (1.2-4.9); Lymphocytes Percent Auto 24.5 % (20-40); MANUAL DIFF FLAG NO; Mean Corpuscular HGB Conc 32.7 g/dl (31.0-35.0); Mean Corpuscular Hemoglobin 30.3 pg (27.0-33.0); Mean Corpuscular Volume 92.7 fL (80.0-98.0); Mean Platelet Volume 9.1 fL (9.4-12.3); Monocytes Absolute Auto 0.7 X10*3/uL (0.1-1.2); Monocytes Percent Auto 6.2 % (2-11); Neutrophils Absolute Auto 7.1 x10*3/uL (2.0-8.3); Neutrophils Percent Auto 65.1 % (45-73); Platelet Count 457 X10*3/uL (160-400); Red Blood Count 4.39 X10*6/uL (4.20-5.50); Red Cell Distribution Width 12.4 % (11.0-16.0); White Blood Count 10.9 X10*3/uL (4.8-10.8)
[2022-09-05 11:31] LABS: Estimated Average Glucose 114 mg/dL; Hemoglobin A1c % 5.6 %
[2022-09-05 11:56] LABS: Alanine Aminotransferase 28 U/L (0-31); Albumin Level 4.1 g/dL (3.5-5.0); Alkaline Phosphatase 104 U/L (39-117); Anion Gap 11 (12-20); Aspartate Amino Transferase 24 U/L (5-31); Bilirubin Total 0.5 mg/dL (0.0-1.0); Blood Urea Nitrogen 12 mg/dL (9-16); Calcium 9.8 mg/dL (8.4-10.2); Carbon Dioxide 26 mmol/L (22-29); Chloride 103 mmol/L (96-108); Cholesterol 121 mg/dL; Estimated Glomerular Filt Rate > 60; Glucose Fasting 103 mg/dL (60-99); HDL Cholesterol 45 mg/dL; LDL Cholesterol Calculated 60 mg/dl; Potassium 4.3 mmol/L (3.3-5.1); Sodium 136 mmol/L (135-145); TSH reflex Free T4 1.65 uIU/mL (0.32-4.0); Total Protein 6.9 g/dL (6.5-8.0); Triglycerides 84 mg/dL
[2022-09-05 12:13] LABS: Creatinine Urine 59.62 mg/dL; Microalbumin Urine < 5.0 mg/L
== END 2022-09-05 08:33 | disposition home or self-care (01) ==
LOC: HO.HMGCLDS 08:32
PROVIDERS: PCP Internal Medicine; Visit Provider Internal Medicine
DX: E04.2 Nontoxic multinodular goiter (principal); E11.42 Type 2 diabetes mellitus with diabetic polyneuropathy; E66.3 Overweight; E78.9 Disorder of lipoprotein metabolism, unspecified; F41.1 Generalized anxiety disorder; J41.1 Mucopurulent chronic bronchitis
CPT/HCPCS: 36415; 80053; 80061; 82043; 83036; 84443; 85025

== ENCOUNTER 2022-09-19 12:51 | Outpatient (REF) | payer OTHER, SELFPAY ==
--- NOTE | ~2022-09-19 | MM_ITS ---
EXAMINATION: MM SCREENING DIGITAL BREAST TOMOSYNTHESIS, BILATERAL CLINICAL INFORMATION: Screening. Asymptomatic. The lifetime risk of breast cancer based on the Tyrer-Cuzick Model is 1.7%. COMPARISON: Mammography: This study is compared with prior exams dating back to 2018. TECHNIQUE: Digital breast tomosynthesis is performed in both the craniocaudal and mediolateral oblique views along with computer-aided detection (CAD). Synthesized 2D images are generated from the tomosynthesis. FINDINGS: There are scattered areas of fibroglandular density (ACR BI-RADS breast composition Category b). There are no significant masses, abnormal calcifications, or other abnormalities. MM/MM tomosynthesis screening BI IMPRESSION: No mammographic evidence of malignancy. ASSESSMENT: BI-RADS BI-RADS 1 - Negative RECOMMENDATION: Routine annual mammography screening. 1 year F/U This examination should not preclude the clinical evaluation of a suspicious palpable abnormality. This patient's information was entered into a reminder system with a target due date for their next mammogram.
== END 2022-09-19 12:52 | disposition home or self-care (01) ==
LOC: HO.MAMMO 12:51
PROVIDERS: PCP Internal Medicine; Visit Provider Internal Medicine
DX: Z12.31 Encounter for screening mammogram for malignant neoplasm of breast (principal)
CPT/HCPCS: 77063; 77067

== ENCOUNTER → 2022-09-19 13:15 | Outpatient (BNV) | payer OTHER, SELFPAY | PROVIDERS: PCP Internal Medicine; Visit Provider Radiology Diagnostic Radiology | DX: Z12.31 Encounter for screening mammogram for malignant neoplasm of breast (principal) | CPT/HCPCS: 77063; 77067 ==

== ENCOUNTER 2022-10-17 10:45 | Outpatient (AMB) | payer OTHER, SELFPAY ==
--- NOTE | 2022-10-17 10:54 | MHC.OFFVIS ---
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 Patient reports pain presented for the past year with no injury. She has attended OT with no relief. Patient reports OT said she has carpel tunnel and arthritis. Pt states she has shooting/ sharp pains going from her wrist up into the palm of her hand as well as her thumb. Pt denies any numbness or tingling sensations. She states she take tylenol with a little relief. She wears a brace if it really bothers her which is helpful only when the pain is severe. 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 She states she has a sharp shooting pain in her wrist which radiates up to the palm of her hand and thumb. She denies any numbness or tingling and has not had any injury in the past. She finds mild relief with Tylenol. She is working with occupational therapy without benefits. She wears a brace only when her pain is severe which provides her relief. She has a history of arthritis. FOR[facility]LY [facility], [facility] Medical History Back pain COPD (chronic obstructive pulmonary disease) Cough Depression Diabetes type 2, controlled Diabetic polyneuropathy associated with type 2 diabetes mellitus Dyslipidemia GERD (gastroesophageal reflux disease) Non-toxic multinodular goiter Overweight (BMI 25.0-29.9) Pulmonary nodules Vitamin D deficiency Surgical History History of ganglion cyst Hx of cholecystectomy Hx of eye surgery Hx of hysterectomy Family History Father No problems noted. Mother Vulva cancer Maternal Uncle Diabetes mellitus Maternal Aunt Diabetes mellitus Social History Housing: House Alcohol intake: never Patient Tobacco Use Status: Former Tobacco user (10 years ago ) Tobacco use type: Cigarette Years Smoked: 40 years e-Cigarette/Vaping Use: Never Used service: No Current occupational status: retired Cognitive needs: No Hearing needs: No Vision needs: No Female Reproductive History Menstrual Age of Menarche: 15 Review of Systems Const All systems reviewed & are unremarkable except as noted in HPI and below Physical Exam Const General: cooperative, healthy appearing, comfortable, no acute distress, well developed and alert Orientation/consciousness: patient oriented x3 HEENT Head: Yes normal to inspection, Yes normocephalic and Yes atraumatic Eyes General: appearance normal, both eyes and all related structures Resp Effort & Inspection: normal respiratory effort and able to speak in complete sentences Cardio Rate: regular rate Peripheral pulses: Peripheral pulses 2+ throughout GI Palpation (GI): Soft to palpation Skin Lesions: no lesions Rashes: no rashes Neuro General: patient oriented x3 Extrem Other: Left wrist: Pain at the base of the thumb along the CMC joint. Pain with CMC grind, they are able to make a full fist and fully extend. Negative tinels. Thenar wasting present. NVI. Results Reviewed Results Reviewed: Xrays were obtained in the office today and personally reviewed by me of the left wrist negative for fracture or dislocation. She does have OA at the CMC joint. Assessment & Plan Assessment & Plan (1) Arthritis of carpometacarpal (CMC) joint of left thumb: Code(s): M18.12 - Unilateral primary osteoarthritis of first carpometacarpal joint, left hand Plan We discussed options which include brace vs injection. She would like to try a brace today. She was given an off the shelf comfort cool brace today which she will wear with activities and any type of lifting. If symptoms persist or worsens, she will see us back to meet with Dr. Leal for a steroid injection, otherwise follow-up as needed. Orders: Orders XR wrist LT min 3V Today M25.532 - Pain in left wrist Patient Instructions: Scribed for Luther Calderon PA-C, by Amanuel Arrieta medical chemist, on 10/17/2022 at 11:00 AM EST. I, Luther Calderon PA-C, have personally reviewed and agree with the information entered by the scribe. Coding Level of Care Code New Pt Level 3 (46995) Diagnoses Arthritis of carpometacarpal (CMC) joint of left thumb M18.12
== END 2022-10-17 11:26 | disposition home or self-care (01) ==
PROVIDERS: PCP Internal Medicine; Visit Provider Physician Assistant
DX: M18.12 Unilateral primary osteoarthritis of first carpometacarpal joint, left hand (principal)
CPT/HCPCS: 99203

== ENCOUNTER 2022-10-17 13:00 | Outpatient (REF) | payer OTHER, SELFPAY ==
--- NOTE | ~2022-10-17 | XR_ITS ---
EXAMINATION: XR WRIST, LEFT CLINICAL INFORMATION: Pain left wrist COMPARISON: None available. TECHNIQUE: PA, lateral, and oblique views of the left wrist. FINDINGS: There is mild osteopenia. No visible acute fracture, dislocation or subluxation seen. There is a small bone fragment at the tip of ulnar process with mild soft tissue swelling suspicious for small avulsion fracture. No additional fracture seen. The joint space are maintained normal. XR/XR wrist LT min 3V IMPRESSION: Suspect small avulsion fracture tip of ulnar styloid process with adjacent mild soft tissue swelling.
== END 2022-10-17 13:01 | disposition home or self-care (01) ==
LOC: HO.HOSX 13:00
PROVIDERS: Visit Provider Physician Assistant
DX: M18.12 Unilateral primary osteoarthritis of first carpometacarpal joint, left hand (principal)
CPT/HCPCS: 73110; 99202

== ENCOUNTER 2023-01-17 08:47 | Outpatient (AMB) | payer OTHER, SELFPAY ==
[2023-01-17 08:50] VITALS: BP 140/82; PULSE 71; O2SAT 97; BMI 23.5
--- NOTE | 2023-01-17 08:50 | MHC.PC.OV ---
Vital Signs 01/17/23 08:50 Height 5 ft 2 in Weight 128 lb 8 oz BMI 23.5 BP 140/82 H Blood Pressure Location Rt brachial Position Sitting Pulse 71 Pulse Source Pulse Oximeter Pulse Oximetry (%) 97 Oxygen Delivery Method Room Air Intake Visit Reasons: 4m follow up Allergies albuterol Allergy (Severe, Verified 01/17/23 08:52) panic attacks naproxen Allergy (Severe, Verified 01/17/23 08:52) rash fosamx Adverse Reaction (Uncoded 01/17/23 08:52) Diarrhea Medication List - Last Reconciled 01/17/23 by Alma Cash MD aspirin 81 mg PO DAILY atorvastatin 80 mg PO DAILY blood sugar diagnostic (RallyOn Verio test strips) Use to check blood sugar BID prn 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 meter (RallyOn Verio Flex Meter) Use to check blood sugar BID prn cholecalciferol (vitamin D3) 25 mcg PO DAILY 90 days dorzolamide 2% 1 drp ophthalmic (eye) BID fluticasone propionate 220 mcg/actuation (Flovent HFA) 2 puffs inhalation BID lancets (RallyOn Delica Plus Lancet) Use to check blood sugar BID prn lancets (FreeStyle Lancets) As directed metformin 1,000 mg PO BID 90 days netarsudil-latanoprost 0.02-0.005 % (Randolphlatan) 1 drp ophthalmic (eye) BEDTIME pyridoxine (vitamin B6) 100 mg PO DAILY 90 days roflumilast 500 mcg PO DAILY 90 days sertraline 100 mg PO DAILY 90 days tamsulosin 0.4 mg PO BEDTIME Tobacco use date assessed: 01/17/23 Fall risk assessment: 1 Fall in past year Last assessed Fall Risk: 01/17/23 Dental Screening Dental Screen Date: 01/17/23 Did you have a dental visit in the last 12 months?: Yes Did you have a dental problem in the last 6 months where you did not have access to dental care?: No Was dental information given to patient?: Patient has dentist HPI 4m follow up HPI Details Patient is 72-year-old female came in today for her regular follow-up appointment Patient's nephew in December, patient says that he was very close to her, he had no medical problems it was a sudden Patient is very depressed and is having difficulty coping with that, however does not want any therapy patient says that she will be fine She is on sertraline patient is to continue that Patient have controlled diabetes mellitus hemoglobin A1c is stable, she had labs done in August I have placed a new set of orders for the patient Lipid disorder: Continue atorvastatin 80 mg Patient says that she has been having left-sided chest pain off and on for the past few days Pain last few seconds and then resolves there is no relationship with eating or activity EKG done today showed no acute findings However patient is ex-smoker with a history of lipid disorder and diabetes I have ordered echocardiogram for the patient She is seeing Dr. Cueva for thyroid nodule Dr. Lomax for bladder disorder And Dr. Colin for COPD. . Patient had Cologuard done July of 2022, which was negative next 1 will be in 2025. Follow-up 3 months [facility] Medical History Pulmonary nodules Cough Back pain Diabetic polyneuropathy associated with type 2 diabetes mellitus Depression GERD (gastroesophageal reflux disease) COPD (chronic obstructive pulmonary disease) Overweight (BMI 25.0-29.9) Dyslipidemia Vitamin D deficiency Non-toxic multinodular goiter Diabetes type 2, controlled Surgical History Hx of eye surgery Hx of cholecystectomy History of ganglion cyst Hx of hysterectomy Family History Father No problems noted. Mother Vulva cancer Maternal Uncle Diabetes mellitus Maternal Aunt Diabetes mellitus Social History Housing: House Alcohol intake: never Patient Tobacco Use Status: Former Tobacco user (10 years ago ) Tobacco use type: Cigarette Years Smoked: 40 years e-Cigarette/Vaping Use: Never Used service: No Current occupational status: retired Cognitive needs: No Hearing needs: No Vision needs: No Female Reproductive History Menstrual Age of Menarche: 15 Questionnaire Thrive Questionnaire Date Thrive assessed: 07/10/21 ALETA-7 AMB Questionnaire ALETA-7 Date ALETA - 7 assessed: 07/10/21 Source: Developed by Drs. Giovani Robledo, Angélica Casper, Odin Narayan and colleagues, with an educational florentin from [employer]. Review of Systems Const Denies chills and Denies fever(s) ENT Denies epistaxis and Denies nasal discharge Resp Denies chest congestion, Denies cough and Denies hemoptysis GI Denies diarrhea and Denies nausea Skin/Breast Denies rash Neuro Reports no additional complaints Psych Reports no additional complaints Endo Reports no additional complaints Physical exam (Primary Care) Vital Signs: Last Vital Signs Pulse 71 01/17/23 08:50 BP 140/82 H 01/17/23 08:50 Pulse Ox 97 01/17/23 08:50 Oxygen Delivery Method Room Air 01/17/23 08:50 BMI result Body Mass Index 23.5 Tobacco/Smoking Status: Tobacco use Status Tobacco use date assessed 01/17/23 01/17/23 08:54 Patient Tobacco Use Status Former Tobacco user (01/17/23 08:54 years ago ) Tobacco use type Cigarette 01/17/23 08:54 e-Cigarette/Vaping Use Never Used 01/17/23 08:54 Thrive Assessment: Date of Thrive Assessment Date Thrive assessed 07/10/21 01/17/23 08:54 Const General: cooperative, comfortable and no acute distress Orientation/consciousness: patient oriented x3 HENMT Head: Yes normocephalic Eyes Other: Right eye with conjunctival injection and clear discharge Neck Neck: Yes supple Resp Effort & Inspection: normal respiratory effort, no cough and no stridor Cardio Rhythm: regular rhythm Heart sounds: S1 normal heart sound present and S2 normal heart sound present Skin General skin exam: turgor normal Neuro General: patient oriented x3, tone normal and moves all extremities Extrem Right lower extremity: no edema Left lower extremity: no edema Assessment and Plan Assessment & Plan (1) Chest pain: Code(s): R07.9 - Chest pain, unspecified Qualifiers: Chest pain type: precordial pain Qualified Code(s): R07.2 - Precordial pain (2) Diabetes type 2, controlled: Code(s): E11.9 - Type 2 diabetes mellitus without complications Qualifiers: Diabetes mellitus complication detail: with polyneuropathy Diabetes mellitus complication status: with neurologic complications Diabetes mellitus director long term care insulin use: without director long term care use Qualified Code(s): E11.42 - Type 2 diabetes mellitus with diabetic polyneuropathy (3) COPD (chronic obstructive pulmonary disease): Code(s): J44.9 - Chronic obstructive pulmonary disease, unspecified Qualifiers: COPD type: chronic bronchitis Chronic bronchitis type: mucopurulent Qualified Code(s): J41.1 - Mucopurulent chronic bronchitis (4) Chronic major depressive disorder, recurrent episode: Code(s): F33.9 - Major depressive disorder, recurrent, unspecified (5) GERD (gastroesophageal reflux disease): Code(s): K21.9 - Gastro-esophageal reflux disease without esophagitis Qualifiers: Esophagitis presence: without esophagitis Qualified Code(s): K21.9 - Gastro-esophageal reflux disease without esophagitis (6) Diabetic polyneuropathy associated with type 2 diabetes mellitus: Code(s): E11.42 - Type 2 diabetes mellitus with diabetic polyneuropathy (7) Anxiety, generalized: Code(s): F41.1 - Generalized anxiety disorder (8) Lipid disorder: Code(s): E78.9 - Disorder of lipoprotein metabolism, unspecified (9) Ex-smoker: Code(s): Z87.891 - Personal history of nicotine dependence Plan Patient is 72-year-old female came in today for her regular follow-up appointment Patient's nephew in December, patient says that he was very close to her, he had no medical problems it was a sudden Patient is very depressed and is having difficulty coping with that, however does not want any therapy patient says that she will be fine She is on sertraline patient is to continue that Patient have controlled diabetes mellitus hemoglobin A1c is stable, she had labs done in August I have placed a new set of orders for the patient Lipid disorder: Continue atorvastatin 80 mg Patient says that she has been having left-sided chest pain off and on for the past few days Pain last few seconds and then resolves there is no relationship with eating or activity EKG done today showed no acute findings However patient is ex-smoker with a history of lipid disorder and diabetes I have ordered echocardiogram for the patient She is seeing Dr. Cueva for thyroid nodule Dr. Lomax for bladder disorder And Dr. Colin for COPD. . Patient had Cologuard done July of 2022, which was negative next 1 will be in 2025. Patient have glaucoma as well right eye is injected and weeping Patient is already seeing Ophthalmology in [place], and has had glaucoma surgery which did not help her. Follow-up 3 months Orders: Orders Comprehensive Met. Panel Today E11.42 - Type 2 diabetes mellitus with diabetic polyneuropathy, E11.9 - Type 2 diabetes mellitus without complications, F33.9 - Major depressive disorder, recurrent, unspecified, F41.1 - Generalized anxiety disorder, J44.9 - Chronic obstructive pulmonary disease, unspecified, K21.9 - Gastro-esophageal reflux disease without esophagitis TSH reflex Free T4 Today E11.42 - Type 2 diabetes mellitus with diabetic polyneuropathy, E11.9 - Type 2 diabetes mellitus without complications, F33.9 - Major depressive disorder, recurrent, unspecified, F41.1 - Generalized anxiety disorder, J44.9 - Chronic obstructive pulmonary disease, unspecified, K21.9 - Gastro-esophageal reflux disease without esophagitis Microalbumin, Random (w Creat) Today E11.42 - Type 2 diabetes mellitus with diabetic polyneuropathy, E11.9 - Type 2 diabetes mellitus without complications, F33.9 - Major depressive disorder, recurrent, unspecified, F41.1 - Generalized anxiety disorder, J44.9 - Chronic obstructive pulmonary disease, unspecified, K21.9 - Gastro-esophageal reflux disease without esophagitis CA echo transthoracic complete Today E11.9 - Type 2 diabetes mellitus without complications, E78.9 - Disorder of lipoprotein metabolism, unspecified, R07.9 - Chest pain, unspecified, Z87.891 - Personal history of nicotine dependence Hemoglobin A1c Today E11.42 - Type 2 diabetes mellitus with diabetic polyneuropathy, E11.9 - Type 2 diabetes mellitus without complications, F33.9 - Major depressive disorder, recurrent, unspecified, F41.1 - Generalized anxiety disorder, J44.9 - Chronic obstructive pulmonary disease, unspecified, K21.9 - Gastro-esophageal reflux disease without esophagitis Complete Blood Count Auto Diff Today E11.42 - Type 2 diabetes mellitus with diabetic polyneuropathy, E11.9 - Type 2 diabetes mellitus without complications, F33.9 - Major depressive disorder, recurrent, unspecified, F41.1 - Generalized anxiety disorder, J44.9 - Chronic obstructive pulmonary disease, unspecified, K21.9 - Gastro-esophageal reflux disease without esophagitis LDL Cholesterol Direct Today E11.42 - Type 2 diabetes mellitus with diabetic polyneuropathy, E11.9 - Type 2 diabetes mellitus without complications, F33.9 - Major depressive disorder, recurrent, unspecified, F41.1 - Generalized anxiety disorder, J44.9 - Chronic obstructive pulmonary disease, unspecified, K21.9 - Gastro-esophageal reflux disease without esophagitis AMB EKG-In Office Today R07.9 - Chest pain, unspecified Coding Level of Care Code Est Pt Level 4 (38694) Diagnoses Precordial pain R07.2 Chest pain type: precordial pain Controlled type 2 diabetes mellitus with diabetic polyneuropathy, without long-term current use of insulin E11.42 Diabetes mellitus complication detail: with polyneuropathy Diabetes mellitus complication status: with neurologic complications Diabetes mellitus director long term care insulin use: without director long term care use Mucopurulent chronic bronchitis J41.1 COPD type: chronic bronchitis Chronic bronchitis type: mucopurulent Chronic major depressive disorder, recurrent episode F33.9 Gastroesophageal reflux disease without esophagitis K21.9 Esophagitis presence: without esophagitis Diabetic polyneuropathy associated with type 2 diabetes mellitus E11.42 Anxiety, generalized F41.1 Lipid disorder E78.9 Ex-smoker Z87.891
== END 2023-01-17 09:53 | disposition home or self-care (01) ==
PROVIDERS: PCP Internal Medicine; Visit Provider Internal Medicine
DX: R07.2 Precordial pain (principal); E11.42 Type 2 diabetes mellitus with diabetic polyneuropathy; J41.1 Mucopurulent chronic bronchitis; F33.9 Major depressive disorder, recurrent, unspecified; K21.9 Gastro-esophageal reflux disease without esophagitis; F41.1 Generalized anxiety disorder; E78.9 Disorder of lipoprotein metabolism, unspecified; Z87.891 Personal history of nicotine dependence
CPT/HCPCS: 99214

== ENCOUNTER 2023-01-17 09:33 | Outpatient (REF) | payer OTHER, SELFPAY ==
[2023-01-17 11:27] LABS: MANUAL DIFF FLAG NO
[2023-01-17 11:38] LABS: Basophils Absolute Auto 0.1 X10*3/uL (0.0-0.2); Basophils Percent Auto 0.8 % (0-2); Eosinophils Absolute Auto 0.3 X10*3/uL (0.0-0.4); Eosinophils Percent Auto 2.7 % (0-4); Hematocrit 43.1 % (37.0-47.0); Hemoglobin 13.9 g/dl (12.0-16.0); Imm Gran Abs Auto 0.03 X10*3/uL (0.00-0.03); Imm Gran Pct Auto 0.3 % (0.0-0.4); Lymphocytes Absolute Auto 2.8 X10*3/uL (1.2-4.9); Lymphocytes Percent Auto 23.9 % (20-40); Mean Corpuscular HGB Conc 32.3 g/dl (31.0-35.0); Mean Corpuscular Hemoglobin 30.4 pg (27.0-33.0); Mean Corpuscular Volume 94.3 fL (80.0-98.0); Mean Platelet Volume 9.3 fL (9.4-12.3); Monocytes Percent Auto 8.4 % (2-11); Neutrophils Absolute Auto 7.4 x10*3/uL (2.0-8.3); Neutrophils Percent Auto 63.9 % (45-73); Platelet Count 402 X10*3/uL (160-400); Red Blood Count 4.57 X10*6/uL (4.20-5.50); Red Cell Distribution Width 12.4 % (11.0-16.0); White Blood Count 11.6 X10*3/uL (4.8-10.8)
[2023-01-17 11:57] LABS: Estimated Average Glucose 117 mg/dL; Hemoglobin A1c % 5.7 % (<6.0)
[2023-01-17 12:27] LABS: Creatinine Urine 130.19 mg/dL; Microalbum/Creatinine Ratio Ur 25.3 ug/mg cr (<30)
[2023-01-17 12:50] LABS: Alanine Aminotransferase 23 U/L (0-31); Albumin Level 4.3 g/dL (3.5-5.0); Alkaline Phosphatase 111 U/L (39-117); Anion Gap 12 (12-20); Aspartate Amino Transferase 26 U/L (5-31); Bilirubin Total 0.3 mg/dL (0.0-1.0); Blood Urea Nitrogen 12 mg/dL (9-16); Calcium 9.5 mg/dL (8.4-10.2); Carbon Dioxide 27 mmol/L (22-29); Chloride 102 mmol/L (96-108); Estimated Glomerular Filt Rate > 60; Glucose Random 82 mg/dL (60-115); Potassium 4.1 mmol/L (3.3-5.1); Sodium 137 mmol/L (135-145); Total Protein 7.1 g/dL (6.5-8.0)
[2023-01-17 12:59] LABS: TSH reflex Free T4 1.34 uIU/mL (0.32-4.0)
[2023-01-19 02:04] LABS: LDL Cholesterol Direct 61 mg/dL (<100)
== END 2023-01-17 09:34 | disposition home or self-care (01) ==
LOC: HO.HMGCLDS 09:33
PROVIDERS: PCP Internal Medicine; Visit Provider Internal Medicine
DX: J44.9 Chronic obstructive pulmonary disease, unspecified (principal); K21.9 Gastro-esophageal reflux disease without esophagitis; E11.42 Type 2 diabetes mellitus with diabetic polyneuropathy; F41.1 Generalized anxiety disorder; F33.9 Major depressive disorder, recurrent, unspecified
CPT/HCPCS: 36415; 80053; 82043; 82570; 83036; 83721; 84443; 85025

== ENCOUNTER 2023-01-21 08:54 | Outpatient (AMB) | payer OTHER, SELFPAY ==
--- NOTE | 2023-01-21 09:48 | MHC.OFFWIV ---
Intake Vital Signs 01/21/23 09:49 Height 5 ft 2 in Weight 128 lb BMI 23.4 BP 130/62 Blood Pressure Location Rt brachial Position Sitting Pulse 82 Pulse Source Pulse Oximeter Temp 98.4 F Temp Source Temporal Artery Scan Pulse Oximetry (%) 98 Oxygen Delivery Method Room Air Intake Visit Reasons: EST/sinus infection (lobby) Intake Note: Pt is here c/o bad cough, sinus pressure and head congestion. Patient Tobacco Use Status: Former Tobacco user Allergies albuterol Allergy (Severe, Verified 01/21/23 09:48) panic attacks naproxen Allergy (Severe, Verified 01/21/23 09:48) rash fosamx Adverse Reaction (Uncoded 01/21/23 09:48) Diarrhea Do you need a note to return to daycare/school/sports/work: No HPI HPI Comments History of Present Illness Details The patient is a 72-year-old female in today for a sick visit. She has a past medical history that is significant for diabetes type 2, and COPD. She reports that for the past 4 days she has developed a cough, headache, and sinus tenderness. She denies any recent fever, nausea, vomiting, diarrhea, chest pain, or shortness of breath. 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 Patient's head is normocephalic, TMs visible pearly delgado, patient is positive for maxillary and frontal sinus tenderness. She has clear nasal discharge. Pharynx normal. No lymphadenopathy. Breath sounds clear bilaterally throughout. Normal heart rate and rhythm. No dizziness. Patient likely has upper respiratory infection. This is unlikely to be ICH, meningitis. Patient will be treated with azithromycin, and a short course of prednisone. She has been instructed about the side effects of the medication, and when to discontinue use. She has been educated on signs of worsening symptoms and when to return to the walk-in or when to present to the emergency room. [facility] Medical History Pulmonary nodules Cough Back pain Diabetic polyneuropathy associated with type 2 diabetes mellitus Depression GERD (gastroesophageal reflux disease) COPD (chronic obstructive pulmonary disease) Overweight (BMI 25.0-29.9) Dyslipidemia Vitamin D deficiency Non-toxic multinodular goiter Diabetes type 2, controlled Surgical History Hx of eye surgery Hx of cholecystectomy History of ganglion cyst Hx of hysterectomy Family History Father No problems noted. Mother Vulva cancer Maternal Uncle Diabetes mellitus Maternal Aunt Diabetes mellitus Social History Housing: House Alcohol intake: never Patient Tobacco Use Status: Former Tobacco user Tobacco use type: Cigarette Years Smoked: 40 years e-Cigarette/Vaping Use: Never Used service: No Current occupational status: retired Cognitive needs: No Hearing needs: No Vision needs: No Female Reproductive History Menstrual Age of Menarche: 15 Review of Systems Const Details: Constitutional : No Weight loss, No Fever, No Chills, No Fatigue, No Malaise ENT/Mouth : No sore throat, Admits Rhinorrhea Eyes: No Eye Pain, No Swelling, No Redness Cardiovascular : No Chest Pain, No SOB, No Dyspnea on Exertion, No Orthopnea, No Edema, No Palpitations Respiratory : Admits Cough, No Sputum, No Wheezing Gastrointestinal : No Nausea, No Vomiting, No Diarrhea, No Constipation, No abdominal Pain, No Hematochezia, No Melena Genitourinary : No Dysuria, No Urinary Frequency, No Hematuria, Neuro : No Weakness, No Numbness, No Dizziness, No Headache All other systems reviewed and are negative All systems reviewed & are unremarkable except as noted in HPI and below Physical Exam Vital Signs: Last Vital Signs Temp 98.4 F 01/21/23 09:49 Pulse 82 01/21/23 09:49 BP 130/62 01/21/23 09:49 Pulse Ox 98 01/21/23 09:49 Oxygen Delivery Method Room Air 01/21/23 09:49 BMI result Body Mass Index 23.4 Vital signs have been reviewed and are stable Appearance: Alert.? Oriented X3.? No acute distress.? Head: Normocephalic, atraumatic, no step-offs or deformities Eyes: Pupils equal, round and reactive to light.? ENT: Pharynx normal.?Clear Nasal Discharge Neck: Normal inspection.? Neck supple.? CVS: Normal heart rate and rhythm.? Pulses normal.? Respiratory: No respiratory distress.? Breath sounds normal.? Neuro: Oriented X 3.? No motor deficit.? No sensory deficit. CN 2-12 intact Assessment & Plan Assessment & Plan (1) Upper respiratory infection: Code(s): J06.9 - Acute upper respiratory infection, unspecified Qualifiers: URI type: acute pharyngitis Pharyngitis/tonsillitis etiology: unspecified etiology Qualified Code(s): J02.9 - Acute pharyngitis, unspecified Plan: Patient will be given azithromycin and prednisone to help with symptoms and cough. Patient has been educated on the side effects of the medication, when to discontinue them. She has been educated that she should take the entire course of the antibiotic. She has been educated on signs of worsening symptoms and when to report to the emergency room. Patient is agreeable to this plan. Orders: Orders SARS-CoV2/FLU/RSV Today J06.9 - Acute upper respiratory infection, unspecified Medications: New prednisone 20 mg PO DAILY 5 tabs 0RF azithromycin Take 2 tabs the first day (250mg x2), followed by 1 tablet daily (250mg x1). 250 mg PO DAILY 6 tabs 0RF Coding Level of Care Code Est Pt Level 3 (50305) Diagnoses Acute pharyngitis, unspecified etiology J02.9 URI type: acute pharyngitis Pharyngitis/tonsillitis etiology: unspecified etiology Time Spent (min) 20
[2023-01-21 09:49] VITALS: BP 130/62; PULSE 82; TEMP 36.9; O2SAT 98; BMI 23.4
== END 2023-01-21 10:48 | disposition home or self-care (01) ==
PROVIDERS: PCP Internal Medicine; Visit Provider Nurse Practitioner Primary Care
DX: J02.9 Acute pharyngitis, unspecified (principal)
CPT/HCPCS: 99213

== ENCOUNTER 2023-01-21 10:44 | Outpatient (REF) | payer OTHER, SELFPAY ==
[2023-01-21 14:35] LABS: Influenza A PCR NEGATIVE (Negative); Influenza B PCR NEGATIVE (Negative); Resp Syncy Virus RNA Qual PCR NEGATIVE (Negative); SARS COV2 PCR INHOUSE NEGATIVE (Negative)
== END 2023-01-21 10:45 | disposition home or self-care (01) ==
LOC: HO.LAB 10:44
PROVIDERS: Visit Provider Nurse Practitioner Primary Care
DX: Z11.52 Encounter for screening for COVID-19 (principal); J06.9 Acute upper respiratory infection, unspecified
CPT/HCPCS: 0241U

== ENCOUNTER 2023-01-28 09:52 | Outpatient (AMB) | payer OTHER, SELFPAY ==
[2023-01-28 09:55] VITALS: PULSE 77; O2SAT 98; BMI 23.4
--- NOTE | 2023-01-28 09:55 | MHC.OFFVIS ---
Intake Vital Signs 01/28/23 09:55 Height 5 ft 2 in Weight 128 lb BMI 23.4 Pulse 77 Pulse Source Pulse Oximeter Pulse Oximetry (%) 98 Oxygen Delivery Method Room Air Intake Visit Reasons: Asthma Dining Room Captain Required: No Allergies albuterol Allergy (Severe, Verified 01/28/23 09:56) panic attacks naproxen Allergy (Severe, Verified 01/28/23 09:56) rash fosamx Adverse Reaction (Uncoded 01/28/23 09:56) Diarrhea HPI HPI Comments History of Present Illness Details The patient is a 72-year-old woman with a known history of COPD. I do not have her records available at this time. She has been doing well on the Daliresp in addition to the Spiriva. However, the Spiriva is no longer covered she has not been using any respiratory inhalers. She cannot tolerate beta agonist due to adverse effects. Therefore, she is not on either a short-acting nor a long-acting beta agonist. She also had use Flovent in the past but she is no longer using it. She has noticed that she'd been doing okay but she does get chest tightness and wheezing at times. She is concerned because she doesn't have any medicines right now to help those episodes. On listening to her exam she does have diminished breath sounds with prolonged expiratory phase and wheezing. My recommendation is for her to be on maintenance inhaler and also having short-acting bronchodilator as needed. Therefore, I will send her in cruise and also will send Xopenex HFA available for her for rescue. 05/30/2020 'the patient has a telephone visit. Overall her respiratory status has been stable. She responded very well to the trelegy inhaler but her insurance did not cover. Therefore she was switched over to Anoro an Arnuity. She still has some cough nonproductive in nature [id number] severity. Does get better with rescue inhaler. She also has some shortness of breath with activity [id number] severity. Otherwise the patient is without any other complaints. 07/05/2020 the patient is here for pulmonary follow-up visit. Overall the patient has been feeling a lot better. She has responded very well to Daliresp. She feels her congestion and wheezing has improved dramatically. She has not required any prednisone. She continues to have a productive cough [id number] severity. She does use Mucinex at times with good response. She also has a rescue inhaler but she has not use that as often. She also continues to month monitor her weight. She continues to reflux diet. This is helping her with reflux disease. She is part of the lung cancer screening program at [facility]. Her last CT scan per report was okay and she is scheduled for 1 year. She will be called when her next CAT scan is due. 07/05/2021 the patient is here for a pulmonary follow-up visit. The patient overall has been doing okay. She still continues to have a productive cough moderate severity. She does get some relief from the Daliresp. Still has significant chronic bronchitis. The cough usually keeps her up at nighttime. Patient is also having some shortness of breath. We did review her recent pulmonary function studies that she had demonstrating a mild obstructive ventilatory defect consistent mild COPD. She also had a CT scan of the chest as part of the lung cancer screening program in October 2020 demonstrating minimal pulmonary nodules. in addition to this she does have extensive emphysema. We will start the patient on azithromycin 3 times a week for chronic bronchitis. She has been able to tolerate a lot of inhalers. She did try Anoro and did not feel it was helping actually making him feel worse. She also tried Trelegy. Among other inhalers. She does not like the way the albuterol makes her feel. Will go ahead and start her on a cortical steroid. 01/07/2022 the patient is here for a pulmonary follow-up visit. Overall she is doing a lot better. Her cough is significantly improved. She still has a dry hacky cough at times. She has not been using the Flovent as much any longer. She did complete the course of azithromycin which was effective. And she is also tolerating the Daliresp. The patient did have a CT scan October 2021 and it was given a RADS score of 2. The patient does have emphysematous changes and stable pulmonary nodules. Overall the patient is doing well on the current respiratory regimen. I will make sure to provide her a short-acting muscarinic antagonist that she can use as needed since she cannot tolerate any beta agonist medication. 01/28/2023 the patient is here for pulmonary follow-up visit. The patient is doing well. Her cough is better breathing is better. She rarely uses a rescue inhaler. She cannot use any beta agonist. She was wondering about the new inhalers. Explained to her that most of them have a long-acting albuterol and therefore not recommended for her. She will continue with current regimen. I did recommend she can use her short-acting muscarinic antagonist along with the Flovent together an as-needed basis. She does not need the Flovent regularly. She did get a CT scan at [facility] over the summer 2022. It appears to be stable with rads 2 score. She has pulmonary nodules that are benign. Child another CT scans summer 2023. Otherwise patient is without any other complaints. She continues to tolerate the Daliresp well. This medication she will continue for her chronic bronchitis. [facility] Medical History Pulmonary nodules Cough Back pain Diabetic polyneuropathy associated with type 2 diabetes mellitus Depression GERD (gastroesophageal reflux disease) COPD (chronic obstructive pulmonary disease) Overweight (BMI 25.0-29.9) Dyslipidemia Vitamin D deficiency Non-toxic multinodular goiter Diabetes type 2, controlled Surgical History Hx of eye surgery Hx of cholecystectomy History of ganglion cyst Hx of hysterectomy Family History Father No problems noted. Mother Vulva cancer Maternal Uncle Diabetes mellitus Maternal Aunt Diabetes mellitus Housing: House Alcohol intake: never Patient Tobacco Use Status: Former Tobacco user Tobacco use type: Cigarette Years Smoked: 40 years e-Cigarette/Vaping Use: Never Used service: No Current occupational status: retired Cognitive needs: No Hearing needs: No Vision needs: No Female Reproductive History Menstrual Age of Menarche: 15 Review of Systems Const Denies chills and Denies fever(s) ENT Denies epistaxis and Denies nasal discharge Card Denies chest pain Resp Denies chest congestion, Denies cough and Denies hemoptysis GI Denies diarrhea and Denies nausea Skin/Breast Denies rash Neuro Reports no additional complaints Psych Reports no additional complaints Endo Reports no additional complaints Physical Exam Vital Signs: Last Vital Signs Pulse 77 01/28/23 09:55 Pulse Ox 98 01/28/23 09:55 Oxygen Delivery Method Room Air 01/28/23 09:55 BMI result Body Mass Index 23.4 Const General: alert Neck Neck: Yes normal visual inspection, Yes full ROM and Yes no lymphadenopathy Chest Chest palpation & inspection: normal inspection of the chest Resp Auscultation: no rhonchi, no wheezes and diminished lung sounds Cardio Rate: regular rate Rhythm: regular rhythm Heart sounds: S1 normal heart sound present and S2 normal heart sound present GI Palpation (GI): Soft to palpation and nontender Auscultation: normal bowel sounds Skin General skin exam: rashes and/or lesions noted Assessment & Plan Assessment & Plan (1) COPD (chronic obstructive pulmonary disease): Code(s): J44.9 - Chronic obstructive pulmonary disease, unspecified Qualifiers: COPD type: chronic bronchitis Chronic bronchitis type: mucopurulent Qualified Code(s): J41.1 - Mucopurulent chronic bronchitis (2) GERD (gastroesophageal reflux disease): Code(s): K21.9 - Gastro-esophageal reflux disease without esophagitis Qualifiers: Esophagitis presence: without esophagitis Qualified Code(s): K21.9 - Gastro-esophageal reflux disease without esophagitis (3) Pulmonary nodules: Comment: Subsolid based on a CT scan from October 2020 measuring 3-4 mm in size Code(s): R91.8 - Other nonspecific abnormal finding of lung field Plan continue Flovent HFA continue ABDI as needed Continue Daliresp 500 mcg daily. (Roflumilast) Continue reflux diet and sleep with the head of bed elevated Continue lung cancer screening program 10/31 at [facility] Follow-up in 12 months Coding Level of Care Code Est Pt Level 4 (84614) Diagnoses Mucopurulent chronic bronchitis J41.1 COPD type: chronic bronchitis Chronic bronchitis type: mucopurulent Gastroesophageal reflux disease without esophagitis K21.9 Esophagitis presence: without esophagitis Pulmonary nodules R91.8 Time Spent (min) 16
== END 2023-01-28 10:16 | disposition home or self-care (01) ==
PROVIDERS: PCP Internal Medicine; Visit Provider Hospitalist
DX: J41.1 Mucopurulent chronic bronchitis (principal); K21.9 Gastro-esophageal reflux disease without esophagitis; R91.8 Other nonspecific abnormal finding of lung field
CPT/HCPCS: 99214

== ENCOUNTER → 2023-01-28 09:52 | Outpatient (BNVA) | payer OTHER, SELFPAY | PROVIDERS: PCP Internal Medicine; Visit Provider Hospitalist | DX: J41.1 Mucopurulent chronic bronchitis (principal); K21.9 Gastro-esophageal reflux disease without esophagitis; R91.8 Other nonspecific abnormal finding of lung field | CPT/HCPCS: 99212 ==

== ENCOUNTER 2023-02-11 08:52 | Outpatient (REF) | payer OTHER, SELFPAY ==
--- NOTE | ~2023-02-11 | US_ITS ---
EXAMINATION: US RETROPERITONEAL LIMITED (RENAL ONLY) CLINICAL INFORMATION: Calculus of kidney. COMPARISON: Renal ultrasound 11/29/2021 and 05/10/2021. X-ray abdomen KUB 07/12/2020. TECHNIQUE: Real-time imaging of the kidneys. FINDINGS: RIGHT KIDNEY: 11.9 x 4.9 x 5.1 cm (SAG x AP x TRV). The kidney is normal in size, contour, and echogenicity. Renal cortical thickness is normal. No focal parenchymal lesions or hydronephrosis. 3 mm lower pole nonobstructing calculus. 2 mm midpole nonobstructing calculus. LEFT KIDNEY: 10.1 x 3.9 x 5.5 cm (SAG x AP x TRV). The kidney is normal in size, contour, and echogenicity. Renal cortical thickness is normal. No hydronephrosis. 6 mm midpole nonobstructing calculus. 4 mm midpole nonobstructing calculus. 4 mm midpole nonobstructing calculus. 6 mm upper pole nonobstructing calculus. Possible parapelvic cyst in the upper pole measuring 1.2 x 1.4 x 1.2 cm. No change since prior and requires no further imaging follow-up. US/US renal BI IMPRESSION: Bilateral nonobstructing renal calculi. No hydronephrosis.
== END 2023-02-11 08:53 | disposition home or self-care (01) ==
LOC: HO.HMGCX 08:52
PROVIDERS: PCP Internal Medicine; Visit Provider Urology
DX: N20.0 Calculus of kidney (principal)
CPT/HCPCS: 76775

== ENCOUNTER → 2023-02-14 12:46 | Outpatient (REF) | payer OTHER, SELFPAY ==
--- NOTE | 2023-02-14 12:49 | CA_ITS ---
Transthoracic Echocardiogram Patient (Last, First, Middle): Porsche Powers, Gender: Female Date of : 1950 Age: 72 Procedure Date: 02/14/2023 Procedure Type: Transthoracic Echocardiogram Location: OP Height: 157.48 cm Weight: 58.06 kg BSA: 1.58 m2 Heart Rate: 64 bpm BP: 150 / 80 mmHg Patient Coordinator: TO Referring MD: Alma Cash MD Symptoms: R07.9 - Chest pain, unspecified Study Quality: Adequate ECG Rhythm: Sinus Conclusions: - The left ventricular systolic function is normal. The calculated ejection fraction is 63% by biplane method. - No obvious valvular pathology seen on this study. Findings Left Ventricle Normal left ventricular cavity size. There is normal left ventricular wall thickness. The left ventricular systolic function is normal. The calculated ejection fraction is 63% by biplane method. There is no evidence of regional wall motion abnormalities. Diastolic function is normal for age. Right Ventricle Normal right ventricular cavity size and systolic function. Atria Both atria are normal in size. Aortic Valve There is a normal trileaflet aortic valve. There is mild calcification of the aortic valve. There is no aortic valve stenosis. There is no aortic valve regurgitation. Mitral Valve The mitral valve appears normal. There is no mitral valve regurgitation. There is no mitral valve stenosis. Pulmonic Valve The pulmonic valve is likely normal. Tricuspid Valve Normal tricuspid valve structure. There is trace tricuspid valve regurgitation. There is no evidence of pulmonary hypertension. Great Vessels The asc aorta is normal in size. Venous The inferior vena cava is normal in size and collapses greater than 50% with inspiration. Pericardium/Pleural There is no evidence of pericardial effusion. Prior Study Comparison No significant change compared to prior study dated: 09/30/2016. Recommendations, Care & Conclusions No obvious valvular pathology seen on this study. Measurements 2D Linear Measurements IVSd: 0.91 0.6-0.9/0.6-1.0 cm LVIDd: 3.89 3.9-5.3/4.2-5.9 cm LVIDd Index: 2.46 2.4-3.2/2.2-3.1 cm/m2 LVIDs: 2.66 2.0-3.6 cm LVPWd: 0.76 0.7-1.1 cm LA Diam: 3.40 2.7-3.8/3.0-4.0 cm LAIDs Index: 2.15 1.5-2.3 cm/m2 LV Mass: 117.44 67-162/88-224 g LV Mass Index: 74.33 43-95/49-115 g/m2 LVOT Diam: 2.00 3.0+(-)1.3 cm 2D Systolic Function EF 4C: 60.90 >55% EF 2C: 63.90 >55% EF BiP: 63.00 >55% Mitral Valve MV Pk E: 0.73 MV PK A: 0.66 MV Decel Time: 195.00 E/A: 1.10 E'Lateral: 9.25 E'Medial: 7.07 E/E' Med: 10.30 E/E' Lat: 7.90 PHT: 57.00 MVA PHT: 3.86 Decel Barry: 3.74 Aortic Valve AoV Pk Bobby: 1.36 AoV Mn Bobby: 0.95 AoV VTI: 0.31 AoV Pk Grad: 7.00 Aov Mn Grad: 4.00 FREDIS Cont.VTI: 2.52 LVOT LVOT Pk Bobby: 1.04 LVOT Mn Bobby: 0.68 LVOT VTI: 0.25 LVOT Pk Grad: 4.00 LVOT Mn Grad: 2.00 LVOT Diam: 2.00 LVOT Area: 3.14 Diastolic Function MV Pk E: 0.73 MV Pk A: 0.66 E/A: 1.10 E'Medial: 7.07 E/E' Med: 10.30 E' Laterial: 9.25 E/E' Lat: 7.90 Right Ventricle TAPSE (mm): 19.10 TVS' Bboby: 8.90 Tricuspid Valve TR Pk Bobby: 2.28 TR Pk Grad: 21.00 RA Press: 3.00 RVSP: 24.00 Great Vessels Aorta Sinus of Valsalva: 2.80 2.0-3.5 cm Ao Asc: 2.90 2.1-3.4 cm Updated in Other Vendor System with Status of Final Tyrone Mac MD electronically signed on 02/15/2023 3:23:52 PM with status of Final
== END ==
LOC: HO.CARD 12:46
PROVIDERS: PCP Internal Medicine; Visit Provider Internal Medicine
DX: R07.9 Chest pain, unspecified (principal); E78.9 Disorder of lipoprotein metabolism, unspecified; E11.9 Type 2 diabetes mellitus without complications; Z87.891 Personal history of nicotine dependence
CPT/HCPCS: 93306

== ENCOUNTER → 2023-02-14 12:49 | Outpatient (BNV) | payer OTHER, SELFPAY | PROVIDERS: PCP Internal Medicine; Visit Provider Internal Medicine | DX: I35.8 Other nonrheumatic aortic valve disorders (principal); R07.9 Chest pain, unspecified | CPT/HCPCS: 93306 ==

== ENCOUNTER 2023-02-18 08:35 | Outpatient (AMB) | payer OTHER, SELFPAY ==
--- NOTE | 2023-02-18 08:39 | MHC.OFFVIS ---
Intake Vital Signs 02/18/23 08:40 Height 5 ft 2 in Weight 133 lb 6.075 oz BMI 24.4 BP 168/78 H Blood Pressure Location Lt brachial Position Sitting Pulse 81 Pulse Source Pulse Oximeter Intake Visit Reasons: f/u MNG-CONFIRMED Intake Note: Patient present for MNG follow up visit. Bump Grader Operator Required: No Accompanied by: Self / Same As Patient Allergies albuterol Allergy (Severe, Verified 02/18/23 08:45) panic attacks naproxen Allergy (Severe, Verified 02/18/23 08:45) rash fosamx Adverse Reaction (Uncoded 01/28/23 09:56) Diarrhea HPI HPI Comments History of Present Illness Details 72 YO F with PMHx NTMNG who is seen in F/U for the same. She was previously followed by Dr. Martin.and then by Dr. Godinez. She has a longstanding history of a NTMNG. Most of her nodules are subcentimeter, but she does have 1 spongiform nodule measuring 1.4 cm. She denies any symptoms of hyper or hypothyroidism. She denies any compressive symptoms currently. She denies any personal history of radiation to the head or the neck. She has a family history of thyroid cancer in her niece. She has not had any biopsies of her nodules in the past. EXAMINATION: US THYROID CLINICAL INFORMATION: Nontoxic multinodular goiter. COMPARISON: Ultrasound soft tissue head/neck thyroid dated 01/22/2021? TECHNIQUE: Linear transducer grayscale and color Doppler examination with attention to the region of the thyroid. FINDINGS: ? SIZE: Measurements of the thyroid lobes and nodules are given in sagittal, anteroposterior and transverse dimensions respectively. Right Thyroid Lobe: 4.9 x 1.5 x 1.4 cm, volume 5.4 mL. Previously 4.4 x 1.5 x 1.3 cm, volume 4.5 mL. Parenchyma: The gland echotexture is heterogeneous. Thyroid vascularity is increased. Left Thyroid Lobe: 4.2 x 1.2 x 1.2 cm, volume 3.0 mL. Previously 3.4 x 1.5 x 1.3 cm, volume 3.5 mL. Parenchyma: The gland echotexture is heterogeneous. Thyroid vascularity is increased. Isthmus: 0.39 cm in maximum AP dimension. Previously 0.30 cm. Estimated total number of nodules greater than or equal to 1 cm: 1. [employer] Supervisor nodules are described as follows: 1.? Location: Isthmus. ?? ? Size: 0.52 x 0.25 x 0.39 cm, volume 0.03 mL. ?? ? Previously: 0.60 x 0.30 x 0.60 cm, volume 0.06 mL. ?? ? Nodule characteristics: ?? ? Composition: Solid/almost completely solid (2). ?? ? Echogenicity: Hypoechoic (2). ?? ? Shape: Not taller than wide (0). ?? ? Margins: Smooth (0). ?? ? Echogenic Foci: None (0).? ACR TI-RADS total points: 4? ACR TI-RADS category: 4? Significant change in size (>/= 20% in 2 dimensions and minimal increase of 2 mm or 50% or greater increase in volume): No 2.? Location: Right mid. ?? ? Size: 0.55 x 0.29 x 0.49 cm, volume 0.04 mL. ?? ? Previously: Not recorded on the previous study. ?? ? Nodule characteristics: ?? ? Composition: Solid/almost completely solid (2). ?? ? Echogenicity: Hypoechoic (2). ?? ? Shape: Not taller than wide (0). ?? ? Margins: Smooth (0). ?? ? Echogenic Foci: None (0).? ACR TI-RADS total points: 4 ?? ? ACR TI-RADS category: 4 ?? ? 3.? Location: Right mid. ?? ? Size: 0.60 x 0.37 x 0.56 cm, volume 0.07 mL. ?? ? Previously: 0.60 x 0.40 x 0.50 cm, volume 0.06 mL. ?? ? Nodule characteristics: ?? ? Composition: Mixed cystic and solid (1). ?? ? Echogenicity: Hypoechoic (2). ?? ? Shape: Not taller than wide (0). ?? ? Margins: Smooth (0). ?? ? Echogenic Foci: Comet-tail artifacts (0).? ACR TI-RADS total points: 3? ACR TI-RADS category: 3? Significant change in size (>/= 20% in 2 dimensions and minimal increase of 2 mm or 50% or greater increase in volume): No 4.? Location: Right mid. ?? ? Size: 1.4 x 0.71 x 0.82 cm, volume 0.42 mL. ?? ? Previously: 1.4 x 0.80 x 0.80 cm, volume 0.44 mL. ?? ? Nodule characteristics: ?? ? Composition: Spongiform (0). ?? ? ACR TI-RADS total points: 0? ACR TI-RADS category: 1? Significant change in size (>/= 20% in 2 dimensions and minimal increase of 2 mm or 50% or greater increase in volume): No 5.? Location: Left superior. ?? ? Size: 0.95 x 0.75 x 0.64 cm, volume 0.24 mL. ?? ? Previously: 0.80 x 0.60 x 0.70 cm, volume 0.17 mL. ?? ? Nodule characteristics: ?? ? Composition: Mixed cystic and solid (1). ?? ? Echogenicity: Hypoechoic (2). ?? ? Shape: Not taller than wide (0). ?? ? Margins: Smooth (0). ?? ? Echogenic Foci: Punctate echogenic foci (3).? ACR TI-RADS total points: 6? ACR TI-RADS category: 4? Significant change in size (>/= 20% in 2 dimensions and minimal increase of 2 mm or 50% or greater increase in volume): No ? ? ? NODES: No lymphadenopathy is seen in the tissue surrounding the thyroid gland. US/US thyroid IMPRESSION: ? A 1.0 cm TR 4 left superior thyroid nodule meets criteria for continued surveillance, not significant changed in size from prior. Remainder of thyroid nodules do not meet criteria for follow-up. ? [facility] Medical History Pulmonary nodules Cough Back pain Diabetic polyneuropathy associated with type 2 diabetes mellitus Depression GERD (gastroesophageal reflux disease) COPD (chronic obstructive pulmonary disease) Overweight (BMI 25.0-29.9) Dyslipidemia Vitamin D deficiency Non-toxic multinodular goiter Diabetes type 2, controlled Surgical History Hx of eye surgery Hx of cholecystectomy History of ganglion cyst Hx of hysterectomy Family History Father No problems noted. Mother Vulva cancer Maternal Uncle Diabetes mellitus Maternal Aunt Diabetes mellitus Social History Housing: House Alcohol intake: never Patient Tobacco Use Status: Former Tobacco user Tobacco use type: Cigarette Years Smoked: 40 years e-Cigarette/Vaping Use: Never Used service: No Current occupational status: retired Cognitive needs: No Hearing needs: No Vision needs: No Female Reproductive History Menstrual Age of Menarche: 15 Physical Exam Const Other: Thyroid gland is normal size weighs about 15 g. There are no thyroid nodules palpated. There is no cervical adenopathy palpated Assessment & Plan Assessment & Plan (1) Non-toxic multinodular goiter: Code(s): E04.2 - Nontoxic multinodular goiter Plan: This is a 71-year-old white female with a history of multinodular goiter with subcentimeter nodules and family history of thyroid cancer. Appears clinically and biochemically euthyroid Will reorder thyroid ultrasound to follow T-rads 4 nodule Orders: Orders US thyroid Today E04.2 - Nontoxic multinodular goiter Coding Level of Care Code Est Pt Level 3 (45090) Diagnoses Non-toxic multinodular goiter E04.2
[2023-02-18 08:40] VITALS: BP 168/78; PULSE 81; BMI 24.4
== END 2023-02-18 09:14 | disposition home or self-care (01) ==
PROVIDERS: PCP Internal Medicine; Visit Provider Internal Medicine Endocrinology, Diabetes & Metabolism
DX: E04.2 Nontoxic multinodular goiter (principal)
CPT/HCPCS: 99213

== ENCOUNTER → 2023-02-18 08:35 | Outpatient (BNVA) | payer OTHER, SELFPAY | PROVIDERS: PCP Internal Medicine; Visit Provider Internal Medicine Endocrinology, Diabetes & Metabolism | DX: E04.2 Nontoxic multinodular goiter (principal) | CPT/HCPCS: 99212 ==

== ENCOUNTER 2023-02-25 13:07 | Outpatient (AMB) | payer OTHER, SELFPAY ==
--- NOTE | 2023-02-25 13:27 | A.OFFVIS_ITS ---
Intake Intake Visit Reasons: 1Y US(set) Intake Note: Patient is Present for Follow Up US Urology Medication: Vitamin B6, Tamsulosin Antibiotic Allergies: None Blood Thinners: Aspirin Allergies albuterol Allergy (Severe, Verified 02/25/23 13:30) panic attacks naproxen Allergy (Severe, Verified 02/25/23 13:30) rash fosamx Adverse Reaction (Uncoded 02/25/23 13:30) Diarrhea Medication List - Last Reconciled 02/25/23 by Jona Lomax MD aspirin 81 mg PO DAILY atorvastatin 80 mg PO DAILY blood sugar diagnostic (ROLI Verio test strips) Use to check blood sugar BID prn 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 meter (Aehr Test Systemsuch Verio Flex Meter) Use to check blood sugar BID prn cholecalciferol (vitamin D3) 25 mcg PO DAILY 90 days dorzolamide 2% 1 drp ophthalmic (eye) BID fluticasone propionate 220 mcg/actuation (Flovent HFA) 2 puffs inhalation BID lancets (ROLI Delica Plus Lancet) Use to check blood sugar BID prn lancets (FreeStyle Lancets) As directed metformin 1,000 mg PO BID 90 days netarsudil-latanoprost 0.02-0.005 % (Rocklatan) 1 drp ophthalmic (eye) BEDTIME pyridoxine (vitamin B6) 100 mg PO DAILY 90 days roflumilast 500 mcg PO DAILY 90 days sertraline 100 mg PO DAILY 90 days tamsulosin 0.4 mg PO BEDTIME HPI HPI Comments History of Present Illness Details Porsche is a pleasant female. She is a patient of Dr. Cash. She is here for the following urologic conditions - nephrolithiasis Discussed ultrasound continue small bilateral stones Background of osteoporosis in setting of diabetes Discussed use of potassium citrate Will obtain 24 hour Litholink Baseline stone labs to check for calcium renal leak Nephrolithiasis They are here for - further evaluation for nephrolithiasis - concurrent osteoporosis in setting of diabetes Urolithiasis was diagnosed - May 2020 - symptoms back pain in May which stopped early June The patient previously had kidney stones whose composition w - unknown Laboratory investigations include - no recent labs 24 Hour urine evaluation - none on file Prior treatment(s) include - 06/28 ESWL left Prior imaging includes - May 2020 renal ultrasound 10 mm ston e left UPJ, small right stone - 07/28 renal ultrasound no stones on lef t, 3 mm stone on right - 12/28 renal ultrasound 2 mm stones ronaldo ateral - 12/29 renal ultrasound bilateral 2-3 m m stones - 01/30 renal stones bilateral 4 mm mult iple Current therapeutic plan will be - increased fluid intake - surveillance imaging - vitamin B6 [facility] Medical History Pulmonary nodules Cough Back pain Diabetic polyneuropathy associated with type 2 diabetes mellitus Depression GERD (gastroesophageal reflux disease) COPD (chronic obstructive pulmonary disease) Overweight (BMI 25.0-29.9) Dyslipidemia Vitamin D deficiency Non-toxic multinodular goiter Diabetes type 2, controlled Surgical History Hx of eye surgery Hx of cholecystectomy History of ganglion cyst Hx of hysterectomy Family History Father No problems noted. Mother Vulva cancer Maternal Uncle Diabetes mellitus Maternal Aunt Diabetes mellitus Social History Housing: House Alcohol intake: never Patient Tobacco Use Status: Former Tobacco user Tobacco use type: Cigarette Years Smoked: 40 years e-Cigarette/Vaping Use: Never Used service: No Current occupational status: retired Cognitive needs: No Hearing needs: No Vision needs: No Female Reproductive History Menstrual Age of Menarche: 15 Review of Systems Const Denies chills and Denies fever(s) Card Reports no additional complaints and Denies syncope Resp Denies cough GI Denies abdominal pain and Denies heartburn Reports as per HPI and Denies change in libido Neuro Denies syncope Psych Denies change in libido Endo Denies change in libido Physical Exam Const General: cooperative, healthy appearing, comfortable and no acute distress Orientation/consciousness: patient oriented x3 HEENT Face and sinus: Yes normal facial exam Mouth: moist mucous membranes Neck Neck: Yes normal visual inspection, Yes full ROM and Yes trachea midline Chest Chest palpation & inspection: normal inspection of the chest Resp Effort & Inspection: normal respiratory effort, able to speak in complete sentences and no respiratory distress GI Inspection: Yes normal to inspection Back/Spine/Pelvis Cervical Spine: normal cervical lordosis Thoracic/Lumbar Spine: thoracic and lumbar spine normal to inspection Skin General skin exam: no rashes or lesions noted Neuro General: patient oriented x3, gait normal, tone normal and moves all extremities Extrem General: Yes normal to inspection and Yes capillary refill normal Assessment & Plan Assessment & Plan (1) Renal stones: Comment: July 2020 ESWL left 10 mm UPJ stone Code(s): N20.0 - Calculus of kidney (2) Osteopenia: Code(s): M85.80 - Other specified disorders of bone density and structure, unspecified site Plan Lab work, Litholink, potassium citrate Orders: Orders Parathyroid Hormone Intact 3 Months N20.0 - Calculus of kidney Calcium 3 Months N20.0 - Calculus of kidney Vitamin D 25-OH Total 3 Months N20.0 - Calculus of kidney Estradiol Ultra Sensitive 3 Months E29.1 - Testicular hypofunction, N20.0 - Calculus of kidney Medications: New potassium citrate ER 10 mEq PO BID 90 days 180 tabs 1RF N20.0 - Calculus of kidney Patient Instructions: Imaging studies, laboratory and physical exam results were discussed and reviewed in detail. No major barriers to patient understanding were identified. An opportunity to ask questions regarding the treatment plan was provided. All questions were answered. The patient expressed understanding and agreement with the above treatment plan. The patient is aware they should contact our office by phone for worsening of their current condition or the appearance of new urologic symptoms. Compliance is encouraged with any medications and followup testing that is ordered. It is a privilege to participate in the urologic care of your patient. If you have any questions or concerns regarding treatment for the above conditions, or other urologic issues, please do not hesitate to contact me. The office telephone contact is [phone]. This note is constructed using voice recognition software. While every effort has been made to ensure accuracy editing computer publisher errors may have been included. Yours sincerely, Dr Jona Lomax MD, [facility] - Urology Providers of Expert, Compassionate Care for the Genitourinary System Coding Level of Care Code Est Pt Level 4 (42138) Diagnoses Renal stones N20.0 Osteopenia M85.80
== END 2023-02-25 13:47 | disposition home or self-care (01) ==
PROVIDERS: Visit Provider Urology
DX: N20.0 Calculus of kidney (principal); M85.80 Other specified disorders of bone density and structure, unspecified site
CPT/HCPCS: 99214

== ENCOUNTER → 2023-02-25 13:07 | Outpatient (BNVA) | payer OTHER, SELFPAY | PROVIDERS: Visit Provider Urology | DX: N20.0 Calculus of kidney (principal); M85.80 Other specified disorders of bone density and structure, unspecified site | CPT/HCPCS: 99212 ==

== ENCOUNTER 2023-03-06 10:09 | Outpatient (REF) | payer OTHER, SELFPAY ==
--- NOTE | ~2023-03-06 | US_ITS ---
EXAMINATION: US THYROID CLINICAL INFORMATION: Nontoxic multinodular goiter. COMPARISON: Ultrasound soft tissue head/neck thyroid dated 01/29/2022 and 01/22/2021. TECHNIQUE: Linear transducer grayscale and color Doppler examination with attention to the region of the thyroid. FINDINGS: SIZE: Measurements of the thyroid lobes and nodules are given in sagittal, anteroposterior and transverse dimensions respectively. Right Thyroid Lobe: 5.0 x 1.4 x 1.4 cm, volume 5.2 mL. Previously 4.9 x 1.5 x 1.4 cm, volume 5.4 mL. Parenchyma: The gland echotexture is homogeneous. Thyroid vascularity is increased. Left Thyroid Lobe: 3.9 x 1.4 x 1.2 cm, volume 3.4 mL. Previously 4.2 x 1.2 x 1.2 cm, volume 3.0 mL. Parenchyma: The gland echotexture is homogeneous. Thyroid vascularity is increased. Isthmus: 0.35 cm in maximum AP dimension. Previously 0.39 cm. Estimated total number of nodules greater than or equal to 1 cm: 1. Time Study Clerk nodules are described as follows: 1. Location: Isthmus. Size: 0.36 x 0.26 x 0.42 cm, volume 0.02 mL. Previously: 0.52 x 0.25 x 0.39 cm, volume 0.03 mL. Nodule characteristics: Composition: Cystic(0). ACR TI-RADS total points: 0 Previous: 4 ACR TI-RADS category: 1 Previous: 4 Significant change in size (>/= 20% in 2 dimensions and minimal increase of 2 mm or 50% or greater increase in volume): No Change in features: Yes Change in ACR TI-RADS risk category: Yes 2. Location: Right inferior. Size: 0.94 x 0.49 x 0.64 cm, volume 0.15 mL. Previously: 0.60 x 0.37 x 0.56 cm, volume 0.07 mL. Nodule characteristics: Composition: Spongiform (0). Echogenicity: Anechoic (0). Shape: Not taller than wide (0). Margins: Smooth (0). Echogenic Foci: None (0). ACR TI-RADS total points: 0 Previous: 3 ACR TI-RADS category: 1 Previous: 3 Significant change in size (>/= 20% in 2 dimensions and minimal increase of 2 mm or 50% or greater increase in volume): Yes Change in features: No Change in ACR TI-RADS risk category: No 3. Location: Right inferior. Size: 1.5 x 0.72 x 0.82 cm, volume 0.50 mL. Previously: 1.4 x 0.71 x 0.82 cm, volume 0.42 mL. Nodule characteristics: Composition: Spongiform (0). Echogenicity: Anechoic (0). Shape: Not taller than wide (0). Margins: Smooth (0). Echogenic Foci: None (0). ACR TI-RADS total points: 0 Previous: 0 ACR TI-RADS category: 1 Previous: 1 Significant change in size (>/= 20% in 2 dimensions and minimal increase of 2 mm or 50% or greater increase in volume): No Change in features: No Change in ACR TI-RADS risk category: No 4. Location: Left superior. Size: 0.95 x 0.73 x 0.67 cm, volume 0.24 mL. Previously: 0.95 x 0.75 x 0.64 cm, volume 0.24 mL. Nodule characteristics: Composition: Mixed cystic and solid (1). Echogenicity: Hypoechoic (2). Shape: Not taller than wide (0). Margins: Smooth (0). Echogenic Foci: Punctate echogenic foci (3). ACR TI-RADS total points: 6 Previous: 6 ACR TI-RADS category: 4 Previous: 4 Significant change in size (>/= 20% in 2 dimensions and minimal increase of 2 mm or 50% or greater increase in volume): No Change in features: No Change in ACR TI-RADS risk category: No 5. Location: Left inferior. Size: 0.60 x 0.31 x 0.50 cm, volume 0.05 mL. Previously: Not seen on the previous study. Nodule characteristics: Composition: Spongiform (0). Echogenicity: Anechoic (0). Shape: Not taller than wide (0). Margins: Smooth (0). Echogenic Foci: None (0). ACR TI-RADS total points: 0 ACR TI-RADS category: 1 NODES: No lymphadenopathy is seen in the tissue surrounding the thyroid gland. US/US thyroid IMPRESSION: Stable left upper 1.0 cm TR 4 thyroid nodule. Continued surveillance recommended. ACR TI-RADS RECOMMENDATION REFERENCE: Ultrasound-guided fine-needle aspiration, follow up ultrasound, no further followup. * TR1 (0 point) and TR2 (2 points): No FNA or followup * TR3 (3 points): FNA if more than or equal to 2.5 cm in maximum dimension, follow up ultrasound in 1, 3 and 5 years if 1.5 to 2.4 cm in maximum dimension. * TR4 (4-6 points): FNA if more than or equal to 1.5 cm in maximum dimension, follow up ultrasound in 1, 2, 3 and 5 years if 1 to 1.4 cm in maximum dimension. * TR5 (more than or equal to 7 points): FNA if more than or equal to 1 cm in maximum dimension, follow up ultrasound every year for 5 years if 0.5 to 0.9 cm in maximum dimension. * TR3, TR4 or TR5 nodules that are below the size threshold for follow up receive no followup.
== END 2023-03-06 10:10 | disposition home or self-care (01) ==
LOC: HO.HMGCX 10:09
PROVIDERS: PCP Internal Medicine; Visit Provider Internal Medicine Endocrinology, Diabetes & Metabolism
DX: E04.2 Nontoxic multinodular goiter (principal)
CPT/HCPCS: 76536

== ENCOUNTER 2023-05-23 09:02 | Outpatient (AMB) | payer OTHER, SELFPAY ==
[2023-05-23 09:04] VITALS: BP 132/68; PULSE 70; O2SAT 98; BMI 24.2
--- NOTE | 2023-05-23 09:04 | MHC.PC.OV ---
Vital Signs 05/23/23 09:04 Height 5 ft 2 in Weight 132 lb 8 oz BMI 24.2 BP 132/68 Blood Pressure Location Rt brachial Position Sitting Pulse 70 Pulse Source Pulse Oximeter Pulse Oximetry (%) 98 Oxygen Delivery Method Room Air Intake Visit Reasons: 8m follow up Allergies albuterol Allergy (Severe, Verified 05/23/23 09:04) panic attacks naproxen Allergy (Severe, Verified 05/23/23 09:04) rash fosamx Adverse Reaction (Uncoded 02/25/23 13:30) Diarrhea Medication List - Last Reconciled 05/23/23 by Alma Cash MD aspirin 81 mg PO DAILY atorvastatin 80 mg PO DAILY blood sugar diagnostic ([employer] Verio test strips) Use to check blood sugar BID prn 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 meter ([employer] Verio Flex Meter) Use to check blood sugar BID prn cholecalciferol (vitamin D3) 25 mcg PO DAILY 90 days dorzolamide 2% 1 drp ophthalmic (eye) BID fluticasone propionate 220 mcg/actuation (Flovent HFA) 2 puffs inhalation BID lancets ([employer] Delica Plus Lancet) Use to check blood sugar BID prn lancets ([employer]Style Lancets) As directed metformin 1,000 mg PO BID 90 days netarsudil-latanoprost 0.02-0.005 % (Santolatan) 1 drp ophthalmic (eye) BEDTIME potassium citrate ER 10 mEq PO BID 90 days pyridoxine (vitamin B6) 100 mg PO DAILY 90 days roflumilast 500 mcg PO DAILY 90 days sertraline 100 mg PO DAILY 90 days tamsulosin 0.4 mg PO BEDTIME Tobacco use date assessed: 05/23/23 Fall risk assessment: No Falls in past year Last assessed Fall Risk: 05/23/23 Dental Screening Dental Screen Date: 05/23/23 Did you have a dental visit in the last 12 months?: Yes Did you have a dental problem in the last 6 months where you did not have access to dental care?: No Was dental information given to patient?: Patient has dentist HPI 8m follow up HPI Details Patient is 72-year-old female came in today for her regular follow-up appointment Patient is doing well She is seeing Urology and was started on potassium supplement because of recurrent renal calculi Patient have controlled diabetes mellitus hemoglobin A1c is stable, she is on metformin 1 g b.i.d. Lipid disorder: Continue atorvastatin 80 mg Depression and anxiety is stable patient is on sertraline 100 mg she is to continue that She is seeing Dr. Cueva for thyroid nodule and having yearly thyroid ultrasound Dr. Lomax for bladder disorder And Dr. Colin for COPD. Patient has stopped smoking 11 years ago . Patient had Cologuard done July of 2022, which was negative next 1 will be in 2025. Patient have glaucoma as well right eye is injected and weeping seeing Ophthalmology in [place], and has had glaucoma surgery which did not help her. Has appointment in September for physical exam Labs to be done today [facility] Medical History Pulmonary nodules Cough Back pain Diabetic polyneuropathy associated with type 2 diabetes mellitus Depression GERD (gastroesophageal reflux disease) COPD (chronic obstructive pulmonary disease) Overweight (BMI 25.0-29.9) Dyslipidemia Vitamin D deficiency Non-toxic multinodular goiter Diabetes type 2, controlled Surgical History Hx of eye surgery Hx of cholecystectomy History of ganglion cyst Hx of hysterectomy Family History Father No problems noted. Mother Vulva cancer Maternal Uncle Diabetes mellitus Maternal Aunt Diabetes mellitus Social History Housing: House Alcohol intake: never Patient Tobacco Use Status: Former Tobacco user Tobacco use type: Cigarette Years Smoked: 40 years e-Cigarette/Vaping Use: Never Used service: No Current occupational status: retired Cognitive needs: No Hearing needs: No Vision needs: No Female Reproductive History Menstrual Age of Menarche: 15 Questionnaire PHQ-9 Over the last 2 weeks, how often have you been bothered by any of the following problems? 1. Little interest or pleasure in doing things: not at all 2. Feeling down, depressed, or hopeless: not at all 3. Trouble falling or staying asleep, or sleeping too much: not at all 4. Feeling tired or having little energy: not at all 5. Poor appetite or overeating: not at all 6. Feeling bad about yourself - or that you are a failure or have let yourself or your family down: not at all 7. Trouble concentrating on things, such as reading the newspaper or watching television: not at all 8. Moving or speaking so slowly that other people could have noticed. Or the opposite - being so fidgety or restless that you have been moving around a lot more than usual: not at all 9. Thoughts that you would be better off or of hurting yourself in some way: not at all Total score: 0 Depression Screening Interpretation: Negative Depression Screening Done: Yes 94182 - PHQ-9 Billing: Yes Source: Developed by Drs. Giovani Robledo, Angélica Casper, Odin Narayan and colleagues, with an educational florentin from [employer]. Thrive Questionnaire Date Thrive assessed: 05/23/23 I am a: Patient What is your living situation today?: I have a steady place to live Within the past 12 months, did the food you bought not last and you didn't have the money to get more?: Never true Within the past 12 months, did you worry whether your food would run out before you got money to buy more?: Never true Do you have trouble paying for medicines?: No Do you have trouble getting transportation to medical appointments?: No Do you have trouble paying your heating and electricity bill?: No Do you have trouble taking care of your child, family member or friend?: No Do you have trouble with day-to-day activities such as bathing, preparing meals, shopping, managing finances, etc.?: No Are you currently unemployed and looking for a job?: No Are you interested in more education?: No Please select the resources that you would like help with: None Currently or been in a relationship where the following occur: no concerns reported THRIVE Score: 0 AUDIT C Alcohol Use Questionnaire (AUDIT-C) 1. How often do you have a drink containing alcohol?: Never 3. How often do you have six or more drinks on one occasion?: Never Total Score: 0 Score Reviewed/Action Taken: Yes ALETA-7 AMB Questionnaire ALETA-7 Date ALETA - 7 assessed: 05/23/23 Feeling nervous, anxious, or on edge: 0 = Not at all Not being able to stop or control worryin = Not at all Worrying too much about different things: 0 = Not at all Trouble relaxin = Not at all Being so restless that it is hard to sit still: 0 = Not at all Becoming easily annoyed or irritable: 0 = Not at all Feeling afraid as if something awful might happen: 0 = Not at all Total ALETA-7 score (0-4 normal; 5-9 mild; 10-14 moderate; 15-21 severe): 0 Source: Developed by Drs. Giovani Robledo, Angélica Casper, Odin Narayan and colleagues, with an educational florentin from [employer]. ALETA-7 Assessment Billing ALETA-7 Assessment Tool: ALETA-7 Assessment 79533 Review of Systems Const Denies chills and Denies fever(s) ENT Denies epistaxis and Denies nasal discharge Card Denies chest pain Resp Denies chest congestion, Denies cough and Denies hemoptysis GI Denies diarrhea and Denies nausea Skin/Breast Denies rash Neuro Reports no additional complaints Psych Reports no additional complaints Endo Reports no additional complaints Physical exam (Primary Care) Vital Signs: Last Vital Signs Pulse 70 05/23/23 09:04 BP 132/68 05/23/23 09:04 Pulse Ox 98 05/23/23 09:04 Oxygen Delivery Method Room Air 05/23/23 09:04 BMI result Body Mass Index 24.2 Tobacco/Smoking Status: Tobacco use Status Tobacco use date assessed 05/23/23 05/23/23 09:06 Patient Tobacco Use Status Former Tobacco user 05/23/23 09:06 Tobacco use type Cigarette 05/23/23 09:06 e-Cigarette/Vaping Use Never Used 05/23/23 09:06 PHQ-9: PHQ-9 Score PHQ-9: Total score 0 05/23/23 09:19 Depression Screening Interpretation: Negative Thrive Assessment: Date of Thrive Assessment Date Thrive assessed 05/23/23 05/23/23 09:10 Currently or been in a relationship where the following occur: no concerns reported Const General: cooperative, comfortable and no acute distress Orientation/consciousness: patient oriented x3 HENMT Head: Yes normocephalic Eyes General: appearance normal, both eyes and all related structures Neck Neck: Yes supple Resp Effort & Inspection: normal respiratory effort, no cough and no stridor Cardio Rhythm: regular rhythm Heart sounds: S1 normal heart sound present and S2 normal heart sound present Skin General skin exam: turgor normal Neuro General: patient oriented x3, tone normal and moves all extremities Extrem Right lower extremity: no edema Left lower extremity: no edema Assessment and Plan Assessment & Plan (1) Diabetes type 2, controlled: Code(s): E11.9 - Type 2 diabetes mellitus without complications Qualifiers: Diabetes mellitus complication detail: with polyneuropathy Diabetes mellitus complication status: with neurologic complications Diabetes mellitus intermediate designer insulin use: without senior care use Qualified Code(s): E11.42 - Type 2 diabetes mellitus with diabetic polyneuropathy (2) Non-toxic multinodular goiter: Code(s): E04.2 - Nontoxic multinodular goiter (3) COPD (chronic obstructive pulmonary disease): Code(s): J44.9 - Chronic obstructive pulmonary disease, unspecified Qualifiers: COPD type: chronic bronchitis Chronic bronchitis type: mucopurulent Qualified Code(s): J41.1 - Mucopurulent chronic bronchitis (4) GERD (gastroesophageal reflux disease): Code(s): K21.9 - Gastro-esophageal reflux disease without esophagitis Qualifiers: Esophagitis presence: without esophagitis Qualified Code(s): K21.9 - Gastro-esophageal reflux disease without esophagitis (5) Diabetic polyneuropathy associated with type 2 diabetes mellitus: Code(s): E11.42 - Type 2 diabetes mellitus with diabetic polyneuropathy (6) Anxiety, generalized: Code(s): F41.1 - Generalized anxiety disorder (7) Lipid disorder: Code(s): E78.9 - Disorder of lipoprotein metabolism, unspecified (8) Osteopenia: Code(s): M85.80 - Other specified disorders of bone density and structure, unspecified site Qualifiers: Osteopenia location: unspecified Qualified Code(s): M85.80 - Other specified disorders of bone density and structure, unspecified site (9) Chronic major depressive disorder, recurrent episode: Code(s): F33.9 - Major depressive disorder, recurrent, unspecified (10) Ex-smoker: Code(s): Z87.891 - Personal history of nicotine dependence Plan Patient is 72-year-old female came in today for her regular follow-up appointment Patient is doing well She is seeing Urology and was started on potassium supplement because of recurrent renal calculi Patient have controlled diabetes mellitus hemoglobin A1c is stable, she is on metformin 1 g b.i.d. Lipid disorder: Continue atorvastatin 80 mg Depression and anxiety is stable patient is on sertraline 100 mg she is to continue that She is seeing Dr. Cueva for thyroid nodule and having yearly thyroid ultrasound Dr. Lomax for bladder disorder And Dr. Colin for COPD. Patient has stopped smoking 11 years ago . Patient had Cologuard done July of 2022, which was negative next 1 will be in 2025. Patient have glaucoma as well right eye is injected and weeping seeing Ophthalmology in [place], and has had glaucoma surgery which did not help her. Has appointment in September for physical exam Labs to be done today Orders: Orders Lipid Panel Today E04.2 - Nontoxic multinodular goiter, E11.42 - Type 2 diabetes mellitus with diabetic polyneuropathy, E11.9 - Type 2 diabetes mellitus without complications, E78.9 - Disorder of lipoprotein metabolism, unspecified, F41.1 - Generalized anxiety disorder, J44.9 - Chronic obstructive pulmonary disease, unspecified, K21.9 - Gastro-esophageal reflux disease without esophagitis, M85.80 - Other specified disorders of bone density and structure, unspecified site Microalbumin, Random (w Creat) Today E11.9 - Type 2 diabetes mellitus without complications Complete Blood Count Auto Diff Today E04.2 - Nontoxic multinodular goiter, E11.42 - Type 2 diabetes mellitus with diabetic polyneuropathy, E11.9 - Type 2 diabetes mellitus without complications, E78.9 - Disorder of lipoprotein metabolism, unspecified, F41.1 - Generalized anxiety disorder, J44.9 - Chronic obstructive pulmonary disease, unspecified, K21.9 - Gastro-esophageal reflux disease without esophagitis, M85.80 - Other specified disorders of bone density and structure, unspecified site Comprehensive [place]. Panel Fast Today E04.2 - Nontoxic multinodular goiter, E11.42 - Type 2 diabetes mellitus with diabetic polyneuropathy, E11.9 - Type 2 diabetes mellitus without complications, E78.9 - Disorder of lipoprotein metabolism, unspecified, F41.1 - Generalized anxiety disorder, J44.9 - Chronic obstructive pulmonary disease, unspecified, K21.9 - Gastro-esophageal reflux disease without esophagitis, M85.80 - Other specified disorders of bone density and structure, unspecified site TSH reflex Free T4 Today E04.2 - Nontoxic multinodular goiter, E11.42 - Type 2 diabetes mellitus with diabetic polyneuropathy, E11.9 - Type 2 diabetes mellitus without complications, E78.9 - Disorder of lipoprotein metabolism, unspecified, F41.1 - Generalized anxiety disorder, J44.9 - Chronic obstructive pulmonary disease, unspecified, K21.9 - Gastro-esophageal reflux disease without esophagitis, M85.80 - Other specified disorders of bone density and structure, unspecified site Hemoglobin A1c Today E11.9 - Type 2 diabetes mellitus without complications Coding Level of Care Code Est Pt Level 4 (46219) Diagnoses Controlled type 2 diabetes mellitus with diabetic polyneuropathy, without long-term current use of insulin E11.42 Diabetes mellitus complication detail: with polyneuropathy Diabetes mellitus complication status: with neurologic complications Diabetes mellitus senior care insulin use: without senior care use Non-toxic multinodular goiter E04.2 Mucopurulent chronic bronchitis J41.1 COPD type: chronic bronchitis Chronic bronchitis type: mucopurulent Gastroesophageal reflux disease without esophagitis K21.9 Esophagitis presence: without esophagitis Diabetic polyneuropathy associated with type 2 diabetes mellitus E11.42 Anxiety, generalized F41.1 Lipid disorder E78.9 Osteopenia, unspecified location M85.80 Osteopenia location: unspecified Chronic major depressive disorder, recurrent episode F33.9 Ex-smoker Z87.891 Additional Codes ALETA-7 Assessment Billing - ALETA-7 Assessment Tool: ALETA-7 Assessment [id number] ([id number])
== END 2023-05-23 11:14 | disposition home or self-care (01) ==
PROVIDERS: PCP Internal Medicine; Visit Provider Internal Medicine
DX: E11.42 Type 2 diabetes mellitus with diabetic polyneuropathy (principal); J41.1 Mucopurulent chronic bronchitis; F33.9 Major depressive disorder, recurrent, unspecified; E04.2 Nontoxic multinodular goiter; K21.9 Gastro-esophageal reflux disease without esophagitis; F41.1 Generalized anxiety disorder; E78.9 Disorder of lipoprotein metabolism, unspecified; M85.80 Other specified disorders of bone density and structure, unspecified site; Z87.891 Personal history of nicotine dependence
CPT/HCPCS: 99214

== ENCOUNTER 2023-05-23 09:18 | Outpatient (REF) | payer OTHER, SELFPAY ==
[2023-05-23 10:39] LABS: MANUAL DIFF FLAG NO
[2023-05-23 10:45] LABS: Basophils Absolute Auto 0.1 X10*3/uL (0.0-0.2); Basophils Percent Auto 0.7 % (0-2); Eosinophils Absolute Auto 0.2 X10*3/uL (0.0-0.4); Eosinophils Percent Auto 2.7 % (0-4); Hematocrit 39.7 % (37.0-47.0); Hemoglobin 13.1 g/dl (12.0-16.0); Imm Gran Abs Auto 0.04 X10*3/uL (0.00-0.03); Imm Gran Pct Auto 0.5 % (0.0-0.4); Lymphocytes Absolute Auto 2.2 X10*3/uL (1.2-4.9); Lymphocytes Percent Auto 24.9 % (20-40); Mean Corpuscular Hemoglobin 30.5 pg (27.0-33.0); Mean Corpuscular Volume 92.5 fL (80.0-98.0); Mean Platelet Volume 8.7 fL (9.4-12.3); Monocytes Absolute Auto 0.6 X10*3/uL (0.1-1.2); Monocytes Percent Auto 6.6 % (2-11); Neutrophils Absolute Auto 5.6 x10*3/uL (2.0-8.3); Neutrophils Percent Auto 64.6 % (45-73); Platelet Count 395 X10*3/uL (160-400); Red Blood Count 4.29 X10*6/uL (4.20-5.50); Red Cell Distribution Width 12.6 % (11.0-16.0); White Blood Count 8.7 X10*3/uL (4.8-10.8)
[2023-05-23 10:52] LABS: Estimated Average Glucose 117 mg/dL; Hemoglobin A1c % 5.7 % (<6.0)
[2023-05-23 11:21] LABS: TSH reflex Free T4 1.16 uIU/mL (0.32-4.0)
[2023-05-23 11:30] LABS: Microalbum/Creatinine Ratio Ur 20.5 ug/mg cr (<30)
[2023-05-23 11:32] LABS: Chloride 103 mmol/L (96-108); Potassium 3.9 mmol/L (3.3-5.1); Sodium 137 mmol/L (135-145); Vitamin D 25-OH Total 41.2 ng/mL (>30)
[2023-05-23 11:41] LABS: Alanine Aminotransferase 26 U/L (0-31); Albumin Level 4.3 g/dL (3.5-5.0); Alkaline Phosphatase 89 U/L (39-117); Anion Gap 15 (12-20); Aspartate Amino Transferase 26 U/L (5-31); Bilirubin Total 0.4 mg/dL (0.0-1.0); Blood Urea Nitrogen 13 mg/dL (9-16); Carbon Dioxide 23 mmol/L (22-29); Cholesterol 132 mg/dL (<200); Estimated Glomerular Filt Rate > 60; Glucose Fasting 165 mg/dL (60-99); HDL Cholesterol 56 mg/dL (>40); LDL Cholesterol Calculated 57 mg/dL (<100); Total Protein 6.8 g/dL (6.5-8.0); Triglycerides 99 mg/dL (<150)
[2023-05-30 01:43] LABS: Estradiol Ultra Sensitive <2 pg/mL
== END 2023-05-23 09:19 | disposition home or self-care (01) ==
LOC: HO.HMGCLDS 09:18
PROVIDERS: Urology; PCP Internal Medicine; Visit Provider Internal Medicine
DX: E11.9 Type 2 diabetes mellitus without complications (principal); E04.2 Nontoxic multinodular goiter; J44.9 Chronic obstructive pulmonary disease, unspecified; K21.9 Gastro-esophageal reflux disease without esophagitis; E11.42 Type 2 diabetes mellitus with diabetic polyneuropathy; F41.1 Generalized anxiety disorder; E78.9 Disorder of lipoprotein metabolism, unspecified; M85.80 Other specified disorders of bone density and structure, unspecified site; N20.0 Calculus of kidney
CPT/HCPCS: 36415; 80053; 80061; 82043; 82306; 82570; 82670; 83036; 83970; 84443; 85025

== ENCOUNTER 2023-09-26 09:53 | Outpatient (AMB) | payer OTHER, SELFPAY ==
[2023-09-26 09:54] VITALS: BP 154/78; PULSE 66; O2SAT 95; BMI 24.6
--- NOTE | 2023-09-26 09:54 | MHC.PC.OV ---
Vital Signs 09/26/23 09:54 Height 5 ft 2 in Weight 134 lb 6 oz BMI 24.6 BP 154/78 H Blood Pressure Location Rt brachial Position Sitting Pulse 66 Pulse Source Pulse Oximeter Pulse Oximetry (%) 95 Oxygen Delivery Method Room Air Intake Visit Reasons: PE Allergies albuterol Allergy (Severe, Verified 09/26/23 09:54) panic attacks naproxen Allergy (Severe, Verified 09/26/23 09:54) rash fosamx Adverse Reaction (Uncoded 02/25/23 13:30) Diarrhea Medication List - Last Reconciled 09/26/23 by Alma Cash MD aspirin 81 mg PO DAILY atorvastatin 80 mg PO DAILY blood sugar diagnostic (Flowity Verio test strips) Use to check blood sugar BID prn 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 meter (SprayCooluch Verio Flex Meter) Use to check blood sugar BID prn cholecalciferol (vitamin D3) 25 mcg PO DAILY 90 days dorzolamide 2% 1 drp ophthalmic (eye) BID fluticasone propionate 220 mcg/actuation (Flovent HFA) 2 puffs inhalation BID lancets (Flowity Delica Plus Lancet) Use to check blood sugar BID prn lancets (FreeStyle Lancets) As directed metformin 1,000 mg PO BID 90 days netarsudil-latanoprost 0.02-0.005 % ([facility]) 1 drp ophthalmic (eye) BEDTIME potassium citrate ER 10 mEq PO BID 90 days pyridoxine (vitamin B6) 100 mg PO DAILY 90 days roflumilast 500 mcg PO DAILY 90 days sertraline 100 mg PO DAILY 90 days tamsulosin 0.4 mg PO BEDTIME Tobacco use date assessed: 09/26/23 Fall risk assessment: No Falls in past year Last assessed Fall Risk: 09/26/23 Dental Screening Dental Screen Date: 09/26/23 Did you have a dental visit in the last 12 months?: Yes Did you have a dental problem in the last 6 months where you did not have access to dental care?: No Was dental information given to patient?: Patient has dentist HPI PE HPI Details Patient is 72-year-old female came in today for physical examination Blood pressure is 154/78 I am starting her on small dose of lisinopril 5 mg She has a doctor's appointment on Friday blood pressure will be checked at that visit If there is any problem patient will stop the medication and notify me Continued to have pain in her left wrist, she has gone through occupational therapy, I did place a referral to orthopedic last visit somehow patient did not go A new referral is created. Patient is taking atorvastatin for lipid control Sertraline for anxiety and depression and metformin for diabetes through this office She is seeing Dr. Cueva for thyroid Dr. Lomax for bladder disorder And Dr. Colin for COPD. Patient will return in 4 months for follow-up 1 year for physical exam. Mammogram up-to-date, [facility] Patient had Cologuard done July of 2022, which was negative next 1 will be in 2025. [facility] Medical History Pulmonary nodules Cough Back pain Diabetic polyneuropathy associated with type 2 diabetes mellitus Depression GERD (gastroesophageal reflux disease) COPD (chronic obstructive pulmonary disease) Overweight (BMI 25.0-29.9) Dyslipidemia Vitamin D deficiency Non-toxic multinodular goiter Diabetes type 2, controlled Surgical History Hx of eye surgery Hx of cholecystectomy History of ganglion cyst Hx of hysterectomy Family History Father No problems noted. Mother Vulva cancer Maternal Uncle Diabetes mellitus Maternal Aunt Diabetes mellitus Social History Housing: House Alcohol intake: never Patient Tobacco Use Status: Former Tobacco user Tobacco use type: Cigarette Years Smoked: 40 years e-Cigarette/Vaping Use: Never Used service: No Current occupational status: retired Cognitive needs: No Hearing needs: No Vision needs: No Female Reproductive History Menstrual Age of Menarche: 15 Questionnaire PHQ-9 Over the last 2 weeks, how often have you been bothered by any of the following problems? 1. Little interest or pleasure in doing things: not at all 2. Feeling down, depressed, or hopeless: not at all 3. Trouble falling or staying asleep, or sleeping too much: not at all 4. Feeling tired or having little energy: not at all 5. Poor appetite or overeating: not at all 6. Feeling bad about yourself - or that you are a failure or have let yourself or your family down: not at all 7. Trouble concentrating on things, such as reading the newspaper or watching television: not at all 8. Moving or speaking so slowly that other people could have noticed. Or the opposite - being so fidgety or restless that you have been moving around a lot more than usual: not at all 9. Thoughts that you would be better off or of hurting yourself in some way: not at all Total score: 0 Depression Screening Interpretation: Negative Depression Screening Done: Yes 25924 - PHQ-9 Billing: Yes Source: Developed by Drs. Giovani Robledo, Angélica Casper, Odin Narayan and colleagues, with an educational florentin from [employer]. Thrive Questionnaire Date Thrive assessed: 05/23/23 AUDIT C Alcohol Use Questionnaire (AUDIT-C) 1. How often do you have a drink containing alcohol?: Never 3. How often do you have six or more drinks on one occasion?: Never Total Score: 0 Score Reviewed/Action Taken: Yes ALETA-7 AMB Questionnaire ALETA-7 Date ALETA - 7 assessed: 09/26/23 Feeling nervous, anxious, or on edge: 0 = Not at all Not being able to stop or control worryin = Not at all Worrying too much about different things: 0 = Not at all Trouble relaxin = Not at all Being so restless that it is hard to sit still: 0 = Not at all Becoming easily annoyed or irritable: 0 = Not at all Feeling afraid as if something awful might happen: 0 = Not at all Total ALETA-7 score (0-4 normal; 5-9 mild; 10-14 moderate; 15-21 severe): 0 Source: Developed by Drs. Giovani Robledo, Angélica Casper, Odin Narayan and colleagues, with an educational florentin from [employer]. ALETA-7 Assessment Billing ALETA-7 Assessment Tool: ALETA-7 Assessment 76324 Review of Systems Const Denies chills, Denies fever(s) and Denies headache(s) Eyes Denies blurry vision ENT Denies headache(s), Denies nasal discharge, Denies nasal obstruction, Denies odynophagia and Denies sinus pain Card Denies chest pain at rest and Denies chest pain with activity Resp Denies cough and Denies hemoptysis GI Denies diarrhea, Denies odynophagia, Denies vomiting and Denies hematemesis Reports as per HPI Musc Denies abnormal gait Skin/Breast Reports as per HPI Neuro Denies Neuro-related abnormal movements, Denies Abnormal speech present, Denies abnormal gait, Denies headache(s) and Denies Sensory deficit (Neuro) Psych Denies mood swings and Denies paranoia Endo Reports as per HPI Paulo/Lymph Reports as per HPI Aller/Immun Reports as per HPI Physical exam (Primary Care) Vital Signs: Last Vital Signs Pulse 66 09/26/23 09:54 BP 154/78 H 09/26/23 09:54 Pulse Ox 95 09/26/23 09:54 Oxygen Delivery Method Room Air 09/26/23 09:54 BMI result Body Mass Index 24.6 Tobacco/Smoking Status: Tobacco use Status Tobacco use date assessed 09/26/23 09/26/23 09:59 Patient Tobacco Use Status Former Tobacco user 09/26/23 09:59 Tobacco use type Cigarette 09/26/23 09:59 e-Cigarette/Vaping Use Never Used 09/26/23 09:59 PHQ-9: PHQ-9 Score PHQ-9: Total score 0 09/26/23 10:07 Depression Screening Interpretation: Negative Thrive Assessment: Date of Thrive Assessment Date Thrive assessed 05/23/23 09/26/23 09:59 Const General: cooperative, comfortable and no acute distress Orientation/consciousness: patient oriented x3 HENMT Head: Yes normocephalic and Yes atraumatic Eyes General: appearance normal, both eyes and all related structures Pupils: Equal, round and reactive pupils present EOM: EOMs intact bilaterally Neck Neck: Yes supple and No lymphadenopathy Thyroid: Thyroid normal Lymphatic: no lymphadenopathy noted Chest Breast/axilla palpation: normal palpation of the breasts Resp Effort & Inspection: normal respiratory effort and able to speak in complete sentences Auscultation: clear to auscultation bilaterally Cardio Heart sounds: S1 normal heart sound present and S2 normal heart sound present GI Palpation (GI): Soft to palpation and nontender Auscultation: normal bowel sounds General: Yes no CVA tenderness Back/Spine/Pelvis Back: no CVA tenderness Skin General skin exam: elasticity normal and turgor normal Neuro General: patient oriented x3 and gait normal Cranial nerves: Yes Equal, round and reactive pupils present Speech: No Abnormal speech present Sensory Exam: No Sensory deficit (Neuro) Coordination: tandem gait normal and Romberg test negative Extrem Other: Pain around thumb left wrist, range of motion intact, no swelling, sensory motor intact, vascular intact General: Yes normal exam except as noted and No edema Assessment and Plan Assessment & Plan (1) Encounter for general adult medical examination with abnormal findings: Code(s): Z00.01 - Encounter for general adult medical examination with abnormal findings (2) Diabetes type 2, controlled: Code(s): E11.9 - Type 2 diabetes mellitus without complications Qualifiers: Diabetes mellitus complication detail: with polyneuropathy Diabetes mellitus complication status: with neurologic complications Diabetes mellitus senior care insulin use: without senior care use Qualified Code(s): E11.42 - Type 2 diabetes mellitus with diabetic polyneuropathy (3) Non-toxic multinodular goiter: Code(s): E04.2 - Nontoxic multinodular goiter (4) COPD (chronic obstructive pulmonary disease): Code(s): J44.9 - Chronic obstructive pulmonary disease, unspecified Qualifiers: COPD type: chronic bronchitis Chronic bronchitis type: mucopurulent Qualified Code(s): J41.1 - Mucopurulent chronic bronchitis (5) GERD (gastroesophageal reflux disease): Code(s): K21.9 - Gastro-esophageal reflux disease without esophagitis Qualifiers: Esophagitis presence: without esophagitis Qualified Code(s): K21.9 - Gastro-esophageal reflux disease without esophagitis (6) Diabetic polyneuropathy associated with type 2 diabetes mellitus: Code(s): E11.42 - Type 2 diabetes mellitus with diabetic polyneuropathy (7) Anxiety, generalized: Code(s): F41.1 - Generalized anxiety disorder (8) Lipid disorder: Code(s): E78.9 - Disorder of lipoprotein metabolism, unspecified (9) Osteopenia: Code(s): M85.80 - Other specified disorders of bone density and structure, unspecified site Qualifiers: Osteopenia location: unspecified Qualified Code(s): M85.80 - Other specified disorders of bone density and structure, unspecified site (10) Chronic major depressive disorder, recurrent episode: Code(s): F33.9 - Major depressive disorder, recurrent, unspecified (11) Ex-smoker: Code(s): Z87.891 - Personal history of nicotine dependence (12) Wrist pain, left: Code(s): M25.532 - Pain in left wrist Plan Patient is 72-year-old female came in today for physical examination Blood pressure is 154/78 I am starting her on small dose of lisinopril 5 mg She has a doctor's appointment on Friday blood pressure will be checked at that visit If there is any problem patient will stop the medication and notify me Continued to have pain in her left wrist, she has gone through occupational therapy, I did place a referral to orthopedic last visit somehow patient did not go A new referral is created. Patient is taking atorvastatin for lipid control Sertraline for anxiety and depression and metformin for diabetes through this office She is seeing Dr. Cueva for thyroid Dr. Lomax for bladder disorder And Dr. Colin for COPD. Patient will return in 4 months for follow-up 1 year for physical exam. Mammogram up-to-date, [facility] Patient had Cologuard done July of 2022, which was negative next 1 will be in 2025. 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 Non-toxic multinodular goiter E04.2 Mucopurulent chronic bronchitis J41.1 COPD type: chronic bronchitis Chronic bronchitis type: mucopurulent Gastroesophageal reflux disease without esophagitis K21.9 Esophagitis presence: without esophagitis Diabetic polyneuropathy associated with type 2 diabetes mellitus E11.42 Anxiety, generalized F41.1 Lipid disorder E78.9 Osteopenia, unspecified location M85.80 Osteopenia location: unspecified Chronic major depressive disorder, recurrent episode F33.9 Ex-smoker Z87.891 Wrist pain, left M25.532 Additional Codes ALETA-7 Assessment Billing - ALETA-7 Assessment Tool: ALETA-7 Assessment 15920 ([id number])
== END 2023-09-26 10:19 | disposition home or self-care (01) ==
PROVIDERS: PCP Internal Medicine; Visit Provider Internal Medicine
DX: Z00.01 Encounter for general adult medical examination with abnormal findings (principal); E11.42 Type 2 diabetes mellitus with diabetic polyneuropathy; J41.1 Mucopurulent chronic bronchitis; F33.9 Major depressive disorder, recurrent, unspecified; E04.2 Nontoxic multinodular goiter; K21.9 Gastro-esophageal reflux disease without esophagitis; F41.1 Generalized anxiety disorder; E78.9 Disorder of lipoprotein metabolism, unspecified; M85.80 Other specified disorders of bone density and structure, unspecified site; Z87.891 Personal history of nicotine dependence; M25.532 Pain in left wrist
CPT/HCPCS: 99213; 99397

== ENCOUNTER 2023-10-10 10:18 | Outpatient (REF) | payer OTHER, SELFPAY ==
--- NOTE | ~2023-10-10 | MM_ITS ---
EXAMINATION: MM SCREENING DIGITAL BREAST TOMOSYNTHESIS, BILATERAL CLINICAL INFORMATION: Screening. Asymptomatic. COMPARISON: Mammography: This study is compared with prior exams dating back to 2018. TECHNIQUE: Digital breast tomosynthesis is performed in both the craniocaudal and mediolateral oblique views along with computer-aided detection (CAD). Synthesized 2D images are generated from the tomosynthesis. FINDINGS: There are scattered areas of fibroglandular density (ACR BI-RADS breast composition Category b). There are no significant masses, abnormal calcifications, or other abnormalities. Few, bilateral, benign calcifications are present. MM/MM tomosynthesis screening BI IMPRESSION: No mammographic evidence of malignancy. ASSESSMENT: BI-RADS BI-RADS 2 - Benign Findings RECOMMENDATION: Routine annual mammography screening. 1 year F/U This examination should not preclude the clinical evaluation of a suspicious palpable abnormality. This patient's information was entered into a reminder system with a target due date for their next mammogram. Electronically signed by: Erlinda Mclean MD 11/10/2023 11:11 PM EDT
== END 2023-10-10 10:19 | disposition home or self-care (01) ==
LOC: HO.MAMMO 10:18
PROVIDERS: PCP Internal Medicine; Visit Provider Internal Medicine
DX: Z12.31 Encounter for screening mammogram for malignant neoplasm of breast (principal)
CPT/HCPCS: 77063; 77067

== ENCOUNTER → 2023-10-10 10:30 | Outpatient (BNV) | payer OTHER, SELFPAY | PROVIDERS: PCP Internal Medicine; Visit Provider Radiology Diagnostic Radiology | DX: Z12.31 Encounter for screening mammogram for malignant neoplasm of breast (principal) | CPT/HCPCS: 77063; 77067 ==

== ENCOUNTER 2023-10-15 14:59 | Outpatient (AMB) | payer OTHER, SELFPAY ==
--- NOTE | 2023-10-15 15:01 | MHC.OFFVIS ---
Intake Visit Reasons: OV- Left wrist pain Intake Note: Porsche is a 73 year old right hand dominant female who presents today for a follow up of her left wrist pain. Patient reports her wrist is feeling a little better today. She states that her pain was worse in the morning, however through out the day her pain gets a little better but the pain stays in her wrist. Patient mentions that OT didnt help with her pain. Denies numbness and tingling. Allergies albuterol Allergy (Severe, Verified 10/15/23 15:03) panic attacks naproxen Allergy (Severe, Verified 10/15/23 15:03) rash fosamx Adverse Reaction (Uncoded 02/25/23 13:30) Diarrhea HPI HPI OV- Left wrist pain: Details: Patient is a 73-year-old female who presents for evaluation of left hand and wrist pain, ongoing for approximately 1-2 years. The patient reports that she experiences a burning pain beginning at the volar aspect of the wrist and moving up into the left thumb, index finger, and rarely of the left middle finger. The patient denies any numbness or tingling in the left hand. However, the patient reports that she was told by occupational therapy that her APB muscle in her left hand has atrophied significantly. Patient denies any loss of range of motion, or increased clumsiness or difficulty opposing the thumb to her digits. Patient has tried occupational therapy, with minimal relief. No other acute complaints or concerns this time. [facility] Medical History Pulmonary nodules Cough Back pain Diabetic polyneuropathy associated with type 2 diabetes mellitus Depression GERD (gastroesophageal reflux disease) COPD (chronic obstructive pulmonary disease) Overweight (BMI 25.0-29.9) Dyslipidemia Vitamin D deficiency Non-toxic multinodular goiter Diabetes type 2, controlled Surgical History Hx of eye surgery Hx of cholecystectomy History of ganglion cyst Hx of hysterectomy Family History Father No problems noted. Mother Vulva cancer Maternal Uncle Diabetes mellitus Maternal Aunt Diabetes mellitus Social History Housing: House Alcohol intake: never Patient Tobacco Use Status: Former Tobacco user Tobacco use type: Cigarette Years Smoked: 40 years e-Cigarette/Vaping Use: Never Used service: No Current occupational status: retired Cognitive needs: No Hearing needs: No Vision needs: No Female Reproductive History Menstrual Age of Menarche: 15 Review of Systems Const All systems reviewed & are unremarkable except as noted in HPI and below Physical Exam Const Other: Patient is alert, oriented, cooperative, and in no acute distress HEENT Head: Yes normocephalic and Yes atraumatic Resp Effort & Inspection: normal respiratory effort and able to speak in complete sentences Cardio Jugular venous distension: no JVD Neuro General: gait normal Cognition (Neuro): normal cognition Extrem Other: Patient is alert, oriented, and in no acute distress. Neuro: Median, ulnar, radial nerves motor and sensory intact and sensation is normal to the tips of all digits. Vascular: Cap refill brisk Pain: Patient reports no pain in the left hand or wrist at this time No tenderness to palpation noted ROM: Range of motion of the left hand full and intact Patient is able to make a closed fist Good finger cross Skin: No lacerations or abrasions. General: No ecchymosis, erythema, or evidence of infection. APB muscle belly firing noted to be weak Psych: Appears grossly normal Affect normal Attitude cooperative Psych Appearance: grossly normal Mental Status: mental status grossly normal Assessment & Plan Assessment & Plan (1) Wrist pain, left: Code(s): M25.532 - Pain in left wrist Category: Medical Plan 1. Left wrist pain Ongoing for approximately 1-2 years At this time, due to shooting nature of pain in median nerve distribution of the left hand, as well as significant wasting of the APB muscle bilaterally, nerve conduction study is ordered to assess the health of the median nerve Patient will follow-up after nerve conduction study for discussion of results and any treatment options available to her In the meantime, patient is advised to continue using previously provided brace, as she feels that this does provide her with some relief Patient will follow-up after nerve conduction study, sooner with any acute concerns Orders: Orders NE electromyogram (EMG) 10/15/23 R20.0 - Anesthesia of skin, R20.2 - Paresthesia of skin NE nerve conduction velocity 10/15/23 R20.0 - Anesthesia of skin, R20.2 - Paresthesia of skin Coding Level of Care Code Est Pt Level 3 (75374) Diagnoses Wrist pain, left M25.532
== END 2023-10-15 16:20 | disposition home or self-care (01) ==
PROVIDERS: PCP Internal Medicine
DX: M25.532 Pain in left wrist (principal)
CPT/HCPCS: 99213

== ENCOUNTER → 2023-10-15 14:59 | Outpatient (BNVA) | payer OTHER, SELFPAY | PROVIDERS: PCP Internal Medicine | DX: M25.532 Pain in left wrist (principal) | CPT/HCPCS: 99212 ==

== ENCOUNTER 2023-11-07 09:15 | Outpatient (REF) | payer OTHER, SELFPAY ==
--- NOTE | 2023-11-07 09:17 | EMG_ITS ---
Chief complaint: Left wrist and thumb pain Reason for referral: Evaluate for Carpal Tunnel Syndrome Referred by: Pierce SALAS Procedure done: Left upper extremity NCS/EMG Precautions and/or limitations: None The limb temperature was monitored continuously and remained between 32-36 degrees C during the performance of the NCS. Nerve Conduction Studies Anti Sensory Summary Table ?Stim Site NR Onset (ms) Norm Onset (ms) Peak (ms) Norm Peak (ms) O-P Amp (?V) Norm O-P Amp Site1 Site2 Delta-0 (ms) Dist (cm) Bobby (m/s) Norm Bobby (m/s) Left Median Anti Sensory (2nd Digit) Wrist ? 2.8 3.6 <3.6 41.7 >10 Wrist 2nd Digit 2.8 14.0 50 Left Ulnar Anti Sensory (5th Digit) Wrist ? 2.3 3.1 <3.7 55.0 >15.0 Wrist 5th Digit 2.3 14.0 61 Motor Summary Table ?Stim Site NR Onset (ms) Norm Onset (ms) O-P Amp (mV) Norm O-P Amp iAmp (mV) Amp (1st) (%) Site1 Site2 Delta-0 (ms) Dist (cm) Bobby (m/s) Norm Bobby (m/s) Left Median Motor (Abd Poll Brev) Wrist ? 3.7 <3.9 5.8 >4.5 7.3 100.0 Elbow Wrist 3.3 20.0 61 >45 Elbow ? 7.0 5.8 7.1 100.0 Left Ulnar Motor (Abd Dig Minimi) Wrist ? 2.7 <3.0 5.5 >5 6.6 100.0 B Elbow Wrist 2.8 17.0 61 >45 B Elbow ? 5.5 5.5 6.6 100.0 A Elbow B Elbow 1.5 10.0 67 >45 A Elbow ? 7.0 4.9 6.0 89.1 Comparison Summary Table ?Stim Site NR Peak (ms) Norm Peak (ms) P-T Amp (?V) Site1 Site2 Delta-P (ms) Norm Delta (ms) Left Median/Radial Dig I Comparison (Digit 1 - 10cm) Median ? 2.9 <2.9 62.8 Median Radial -0.1 Radial ? 3.0 <2.8 50.7 EMG ?Side Muscle Nerve Root Ins Act Fibs Psw Amp Dur Poly Recrt Int Pat Comment Left 1stDorInt Ulnar C8-T1 Nml Nml Nml Nml Nml 0 Nml Complete Left FlexCarRad Median C6-7 Nml Nml Nml Nml Nml 0 Nml Complete Left Biceps Musculocut C5-6 Nml Nml Nml Nml Nml 0 Nml Complete Left Triceps Radial C6-7-8 Nml Nml Nml Nml Nml 0 Nml Complete Left Deltoid Axillary C5-6 Nml Nml Nml Nml Nml 0 Nml Complete FINDINGS: All motor and sensory nerves tested showed normal latencies, amplitudes and conduction velocities. Concentric needle EMG was performed in selected muscles of the left upper extremity. Study did not reveal signs of electric abnormalities as shown in the table above. IMPRESSION: 1. This is a normal study. 2. There is no electrodiagnostic evidence for median neuropathy, ulnar neuropathy, brachial plexopathy, or cervical radiculopathy. Thank you for your kind referral. Rossi De La Rosa MD, ERMELINDA Board Certified, [place] [employer] and [employer] (ABPMR) Board Certified, [place] [employer] Electrodiagnostic [employer] (ABEM) CODIN [address] MTDD
== END 2023-11-07 09:16 | disposition home or self-care (01) ==
LOC: HO.NEURO 09:15
PROVIDERS: PCP Internal Medicine
DX: R20.0 Anesthesia of skin (principal); R20.2 Paresthesia of skin
CPT/HCPCS: 95886; 95909

== ENCOUNTER → 2023-11-07 09:17 | Outpatient (BNV) | payer OTHER, SELFPAY | PROVIDERS: PCP Internal Medicine; Visit Provider Physical Medicine & Rehabilitation | DX: M25.532 Pain in left wrist (principal); R20.0 Anesthesia of skin; R20.2 Paresthesia of skin | CPT/HCPCS: 95886; 95909 ==

== ENCOUNTER 2023-11-12 09:50 | Outpatient (AMB) | payer OTHER, SELFPAY ==
--- NOTE | 2023-11-12 09:51 | A.OFFVIS_ITS ---
Vital Signs 11/12/23 09:52 Height 5 ft 2 in Weight 130 lb 1.164 oz BMI 23.8 BP 132/86 Blood Pressure Location Rt brachial Position Sitting Pulse 72 Pulse Source Pulse Oximeter Intake Visit Reasons: DM/CONFIRMED Intake Note: Patient presents today to re-establish treatment for Type Diabetes Mellitus: Last Diabetic eye exam was on: DUE Last Podiatry exam was on: Does not see a [employer] Most recent HbA1c: 6.1%, 11/12/2023 Random Glucose- 136 mg/dL, Today Anthropological Linguist Required: No Accompanied by: Self / Same As Patient Allergies albuterol Allergy (Severe, Verified 11/12/23 09:52) panic attacks naproxen Allergy (Severe, Verified 11/12/23 09:52) rash fosamx Adverse Reaction (Uncoded 11/12/23 09:52) Diarrhea Medication List - Last Reconciled 11/12/23 by Mira Landa MD aspirin 81 mg PO DAILY atorvastatin 80 mg PO DAILY 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 meter (OneTouch Verio Flex Meter) Use to check blood sugar BID prn cholecalciferol (vitamin D3) 25 mcg PO DAILY 90 days dorzolamide 2% 1 drp ophthalmic (eye) BID fluticasone propionate 220 mcg/actuation (Flovent HFA) 2 puffs inhalation BID lancets (appCREARTouch Delica Plus Lancet) Use to check blood sugar BID prn lancets (FreeStyle Lancets) As directed lisinopril 5 mg PO DAILY metformin ER 1,000 mg (2 x 500 mg) PO DAILY netarsudil-latanoprost 0.02-0.005 % ([facility]) 1 drp ophthalmic (eye) BEDTIME OneTouch Verio test strips (blood sugar diagnostic) Use to check blood sugar BID prn NS potassium citrate ER 10 mEq PO BID 90 days pyridoxine (vitamin B6) 100 mg PO DAILY 90 days roflumilast 500 mcg PO DAILY 90 days sertraline 100 mg PO DAILY 90 days tamsulosin 0.4 mg PO BEDTIME HPI Comments Details: 73 YO F with PMHx NTMNG & type 2 diabetes presenting for diabetes follow upi. Diabetes: On metformin 1000mg twice daily. POC A1C today 6.1%. Compliant with medications. Has lost 50 pounds since initial diagnosis. Would like to try lesser dose metformin. She is tolerating the medication well Monitoring glucose with OneTouch Verio No hypoglycemia Micro/macrovascular complications: Ophtho, neuropathy/RLS She has a longstanding history of a NTMNG. Most of her nodules are subcentimeter, but she does have 1 spongiform nodule measuring 1.4 cm. She denies any symptoms of hyper or hypothyroidism. She denies any compressive symptoms currently. She denies any personal history of radiation to the head or the neck. She has a family history of thyroid cancer in her niece. She has not had any biopsies of her nodules in the past. EXAMINATION: US THYROID CLINICAL INFORMATION: Nontoxic multinodular goiter. COMPARISON: Ultrasound soft tissue head/neck thyroid dated 01/22/2021? TECHNIQUE: Linear transducer grayscale and color Doppler examination with attention to the region of the thyroid. FINDINGS: ? SIZE: Measurements of the thyroid lobes and nodules are given in sagittal, anteroposterior and transverse dimensions respectively. Right Thyroid Lobe: 4.9 x 1.5 x 1.4 cm, volume 5.4 mL. Previously 4.4 x 1.5 x 1.3 cm, volume 4.5 mL. Parenchyma: The gland echotexture is heterogeneous. Thyroid vascularity is increased. Left Thyroid Lobe: 4.2 x 1.2 x 1.2 cm, volume 3.0 mL. Previously 3.4 x 1.5 x 1.3 cm, volume 3.5 mL. Parenchyma: The gland echotexture is heterogeneous. Thyroid vascularity is increased. Isthmus: 0.39 cm in maximum AP dimension. Previously 0.30 cm. Estimated total number of nodules greater than or equal to 1 cm: 1. Board Writer nodules are described as follows: 1.? Location: Isthmus. ?? ? Size: 0.52 x 0.25 x 0.39 cm, volume 0.03 mL. ?? ? Previously: 0.60 x 0.30 x 0.60 cm, volume 0.06 mL. ?? ? Nodule characteristics: ?? ? Composition: Solid/almost completely solid (2). ?? ? Echogenicity: Hypoechoic (2). ?? ? Shape: Not taller than wide (0). ?? ? Margins: Smooth (0). ?? ? Echogenic Foci: None (0).? ACR TI-RADS total points: 4? ACR TI-RADS category: 4? Significant change in size (>/= 20% in 2 dimensions and minimal increase of 2 mm or 50% or greater increase in volume): No 2.? Location: Right mid. ?? ? Size: 0.55 x 0.29 x 0.49 cm, volume 0.04 mL. ?? ? Previously: Not recorded on the previous study. ?? ? Nodule characteristics: ?? ? Composition: Solid/almost completely solid (2). ?? ? Echogenicity: Hypoechoic (2). ?? ? Shape: Not taller than wide (0). ?? ? Margins: Smooth (0). ?? ? Echogenic Foci: None (0).? ACR TI-RADS total points: 4 ?? ? ACR TI-RADS category: 4 ?? ? 3.? Location: Right mid. ?? ? Size: 0.60 x 0.37 x 0.56 cm, volume 0.07 mL. ?? ? Previously: 0.60 x 0.40 x 0.50 cm, volume 0.06 mL. ?? ? Nodule characteristics: ?? ? Composition: Mixed cystic and solid (1). ?? ? Echogenicity: Hypoechoic (2). ?? ? Shape: Not taller than wide (0). ?? ? Margins: Smooth (0). ?? ? Echogenic Foci: Comet-tail artifacts (0).? ACR TI-RADS total points: 3? ACR TI-RADS category: 3? Significant change in size (>/= 20% in 2 dimensions and minimal increase of 2 mm or 50% or greater increase in volume): No 4.? Location: Right mid. ?? ? Size: 1.4 x 0.71 x 0.82 cm, volume 0.42 mL. ?? ? Previously: 1.4 x 0.80 x 0.80 cm, volume 0.44 mL. ?? ? Nodule characteristics: ?? ? Composition: Spongiform (0). ?? ? ACR TI-RADS total points: 0? ACR TI-RADS category: 1? Significant change in size (>/= 20% in 2 dimensions and minimal increase of 2 mm or 50% or greater increase in volume): No 5.? Location: Left superior. ?? ? Size: 0.95 x 0.75 x 0.64 cm, volume 0.24 mL. ?? ? Previously: 0.80 x 0.60 x 0.70 cm, volume 0.17 mL. ?? ? Nodule characteristics: ?? ? Composition: Mixed cystic and solid (1). ?? ? Echogenicity: Hypoechoic (2). ?? ? Shape: Not taller than wide (0). ?? ? Margins: Smooth (0). ?? ? Echogenic Foci: Punctate echogenic foci (3).? ACR TI-RADS total points: 6? ACR TI-RADS category: 4? Significant change in size (>/= 20% in 2 dimensions and minimal increase of 2 mm or 50% or greater increase in volume): No ? ? ? NODES: No lymphadenopathy is seen in the tissue surrounding the thyroid gland. US/US thyroid IMPRESSION: ? A 1.0 cm TR 4 left superior thyroid nodule meets criteria for continued surveillance, not significant changed in size from prior. Remainder of thyroid nodules do not meet criteria for follow-up. ROS CONSTITUTIONAL: Denies weight loss, fever and chills. HEENT: Denies changes in vision and hearing. RESPIRATORY: Denies SOB and cough. CV: Denies palpitations and CP GI: Denies abdominal pain, nausea, vomiting and diarrhea. : Denies dysuria and urinary frequency. MSK: Denies new myalgia and joint pain. SKIN: Denies rash and pruritus. NEUROLOGICAL: Denies headache PSYCHIATRIC: Denies recent changes in mood. PHYSICAL EXAM: GENERAL: Alert and oriented x 3. NAD EYES: EOMI. Anicteric. HENT: Moist mucous membranes. No scleral icterus. Heterogenous thyroid. No cervical lymphadenopathy. LUNGS: Clear to auscultation bilaterally. CARDIOVASCULAR: Regular rate and rhythm. No murmur. No JVD. ABDOMEN: Soft, non-tender +bs EXTREMITIES: No edema. Non-tender. SKIN: No rashes or lesions. Warm. NEUROLOGIC: No focal neurological deficits. CN II-XII grossly intact PSYCHIATRIC: Cooperative. Appropriate mood and affect ? [facility] Medical History Pulmonary nodules Cough Back pain Diabetic polyneuropathy associated with type 2 diabetes mellitus Depression GERD (gastroesophageal reflux disease) COPD (chronic obstructive pulmonary disease) Overweight (BMI 25.0-29.9) Dyslipidemia Vitamin D deficiency Non-toxic multinodular goiter Diabetes type 2, controlled Surgical History Hx of eye surgery Hx of cholecystectomy History of ganglion cyst Hx of hysterectomy Family History Father No problems noted. Mother Vulva cancer Maternal Uncle Diabetes mellitus Maternal Aunt Diabetes mellitus Social History Housing: House Alcohol intake: never Patient Tobacco Use Status: Former Tobacco user Tobacco use type: Cigarette Years Smoked: 40 years e-Cigarette/Vaping Use: Never Used service: No Current occupational status: retired Cognitive needs: No Hearing needs: No Vision needs: No Female Reproductive History Menstrual Age of Menarche: 15 Physical Exam Vital Signs: Last Vital Signs Pulse 72 11/12/23 09:52 BP 132/86 11/12/23 09:52 BMI result Body Mass Index 23.8 Results AMB Hemoglobin A1c AMB Hemoglobin A1c 6.1 % Last Edit by KIERRA Cabral on 11/12/23 10:15 Results Reviewed Results Reviewed: Laboratory Last Values Glucose (Clinic) 136 mg/dL (60-115) H 11/12/23 10:00 Hgb A1c (Clinic) 6.1 % (4.0-6.0) H 11/12/23 10:04 Assessment & Plan Assessment & Plan (1) Diabetes type 2, controlled: Code(s): E11.9 - Type 2 diabetes mellitus without complications Category: Medical Qualifiers: Diabetes mellitus complication detail: with polyneuropathy Diabetes mellitus complication status: with neurologic complications Diabetes mellitus l juanpablo term insulin use: without extermination inspector use Qualified Code(s): E11.42 - Type 2 diabetes mellitus with diabetic polyneuropathy Plan: Well controlled on current medication. Will trial decreasing metformin to 1000mg daily. Return in ~3 months (2) Diabetic polyneuropathy associated with type 2 diabetes mellitus: Code(s): E11.42 - Type 2 diabetes mellitus with diabetic polyneuropathy Category: Medical Plan: Using topical cream (3) Thyroid nodule: Code(s): E04.1 - Nontoxic single thyroid nodule Category: Medical Plan: Repeat us February Orders: Orders US thyroid 3 Months E04.1 - Nontoxic single thyroid nodule AMB Hemoglobin A1c Today E11.42 - Type 2 diabetes mellitus with diabetic polyneuropathy Medications: New metformin ER 1,000 mg (2 x 500 mg) PO DAILY 180 tabs 3RF Changed From blood sugar diagnostic (OneTouch Verio test strips) Use to check blood sugar BID prn 100 ea 3RF E11.42 - Type 2 diabetes mellitus with diabetic polyneuropathy To OneTouch Verio test strips (blood sugar diagnostic) Use to check blood sugar BID prn 100 ea 3RF NS E11.42 - Type 2 diabetes mellitus with diabetic polyneuropathy Discontinued metformin Discontinued Reason: Doctor's Order 1,000 mg PO BID 90 days 180 tabs 2RF E11.9 - Type 2 diabetes mellitus without complications Coding Level of Care Code Est Pt Level 4 (13561) Diagnoses Controlled type 2 diabetes mellitus with diabetic polyneuropathy, without long- term current use of insulin E11.42 Diabetes mellitus complication detail: with polyneuropathy Diabetes mellitus complication status: with neurologic complications Diabetes mellitus extermination inspector insulin use: without extermination inspector use Diabetic polyneuropathy associated with type 2 diabetes mellitus E11.42 Thyroid nodule E04.1
[2023-11-12 09:52] VITALS: BP 132/86; PULSE 72; BMI 23.8
[2023-11-12 10:05] LABS: Glucose, Whole Blood 136 mg/dL (60-115)
== END 2023-11-12 10:26 | disposition home or self-care (01) ==
PROVIDERS: PCP Internal Medicine; Visit Provider Internal Medicine
DX: E11.42 Type 2 diabetes mellitus with diabetic polyneuropathy (principal); E04.1 Nontoxic single thyroid nodule
CPT/HCPCS: 99214

== ENCOUNTER → 2023-11-12 09:50 | Outpatient (BNVA) | payer OTHER, SELFPAY | PROVIDERS: PCP Internal Medicine; Visit Provider Internal Medicine | DX: E11.42 Type 2 diabetes mellitus with diabetic polyneuropathy (principal); E04.1 Nontoxic single thyroid nodule | CPT/HCPCS: 82947; 83036; 99212 ==

== ENCOUNTER 2024-01-02 12:42 | Outpatient (AMB) | payer OTHER, SELFPAY ==
[2024-01-02 12:48] VITALS: BP 116/62; PULSE 77; O2SAT 97; BMI 23.8
--- NOTE | 2024-01-02 12:48 | MHC.PC.OV ---
Vital Signs 01/02/24 12:48 Height 5 ft 2 in Weight 130 lb 6 oz BMI 23.8 BP 116/62 Blood Pressure Location Rt brachial Position Sitting Pulse 77 Pulse Source Pulse Oximeter Pulse Oximetry (%) 97 Oxygen Delivery Method Room Air Intake Visit Reasons: cataract surgery RT eye on 01/13 Allergies albuterol Allergy (Severe, Verified 01/02/24 12:48) panic attacks naproxen Allergy (Severe, Verified 01/02/24 12:48) rash fosamx Adverse Reaction (Uncoded 11/12/23 09:52) Diarrhea Medication List - Last Reconciled 01/02/24 by Alma Cash MD aspirin 81 mg PO DAILY atorvastatin 80 mg PO DAILY 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 meter (PT [place] Inti SelarasTouch Verio Flex Meter) Use to check blood sugar BID prn cholecalciferol (vitamin D3) 25 mcg PO DAILY 90 days dorzolamide 2% 1 drp ophthalmic (eye) BID fluticasone propionate 220 mcg/actuation (Flovent HFA) 2 puffs inhalation BID lancets (PT [place] Inti SelarasTouch Delica Plus Lancet) Use to check blood sugar BID prn lancets (FreeStyle Lancets) As directed lisinopril 5 mg PO DAILY metformin ER 1,000 mg (2 x 500 mg) PO DAILY netarsudil[facility]latanoprost [facility] 1 drp ophthalmic (eye) BEDTIME OneTouch Verio test strips (blood sugar diagnostic) Use to check blood sugar BID prn NS potassium citrate ER 10 mEq PO BID 90 days pyridoxine (vitamin B6) 100 mg PO DAILY 90 days roflumilast 500 mcg PO DAILY 90 days sertraline 100 mg PO DAILY 90 days tamsulosin 0.4 mg PO BEDTIME Tobacco use date assessed: 01/02/24 Fall risk assessment: No Falls in past year Last assessed Fall Risk: 01/02/24 Dental Screening Dental Screen Date: 01/02/24 Did you have a dental visit in the last 12 months?: Yes Did you have a dental problem in the last 6 months where you did not have access to dental care?: No Was dental information given to patient?: Patient has dentist HPI cataract surgery RT eye on 01/13 HPI Details Patient came in today for preop evaluation for cataract surgery right eye on January 13 By [facility] Patient has a history of diabetes which is controlled, last hemoglobin A1c was 6.1 November of this year Hyperlipidemia, COPD, chronic GERD, diabetic polyneuropathy, history of kidney stones causing hydronephrosis, kidney functions intact, anxiety history of depression and osteopenia Medication list reviewed New set of lab order placed Patient offer no new complaints today No signs of infection Patient is stable for cataract surgery PFSH Medical History Pulmonary nodules Cough Back pain Diabetic polyneuropathy associated with type 2 diabetes mellitus Depression GERD (gastroesophageal reflux disease) COPD (chronic obstructive pulmonary disease) Overweight (BMI 25.0-29.9) Dyslipidemia Vitamin D deficiency Non-toxic multinodular goiter Diabetes type 2, controlled Surgical History Hx of eye surgery Hx of cholecystectomy History of ganglion cyst Hx of hysterectomy Family History Father No problems noted. Mother Vulva cancer Maternal Uncle Diabetes mellitus Maternal Aunt Diabetes mellitus Social History Housing: House Alcohol intake: never Patient Tobacco Use Status: Former Tobacco user Tobacco use type: Cigarette Years Smoked: 40 years e-Cigarette/Vaping Use: Never Used service: No Current occupational status: retired Cognitive needs: No Hearing needs: No Vision needs: No Female Reproductive History Menstrual Age of Menarche: 15 Questionnaire PHQ-9 Over the last 2 weeks, how often have you been bothered by any of the following problems? 1. Little interest or pleasure in doing things: not at all 2. Feeling down, depressed, or hopeless: not at all 3. Trouble falling or staying asleep, or sleeping too much: not at all 4. Feeling tired or having little energy: not at all 5. Poor appetite or overeating: not at all 6. Feeling bad about yourself - or that you are a failure or have let yourself or your family down: not at all 7. Trouble concentrating on things, such as reading the newspaper or watching television: not at all 8. Moving or speaking so slowly that other people could have noticed. Or the opposite - being so fidgety or restless that you have been moving around a lot more than usual: not at all 9. Thoughts that you would be better off or of hurting yourself in some way: not at all Total score: 0 Depression Screening Interpretation: Negative Depression Screening Done: Yes 73504 - PHQ-9 Billing: Yes Source: Developed by Drs. Giovani Robledo, Angélica Casper, Odin Narayan and colleagues, with an educational florentin from [employer]. Thrive Questionnaire Date Thrive assessed: 01/02/24 I am a: Patient What is your living situation today?: I have a steady place to live Within the past 12 months, did the food you bought not last and you didn't have the money to get more?: Never true Within the past 12 months, did you worry whether your food would run out before you got money to buy more?: I choose not to answer this question Do you have trouble paying for medicines?: No Do you have trouble getting transportation to medical appointments?: No Do you have trouble paying your heating and electricity bill?: No Do you have trouble taking care of your child, family member or friend?: No Do you have trouble with day-to-day activities such as bathing, preparing meals, shopping, managing finances, etc.?: No Are you currently unemployed and looking for a job?: No Are you interested in more education?: No Please select the resources that you would like help with: None Currently or been in a relationship where the following occur: I choose not to answer THRIVE Score: 0 AUDIT C Alcohol Use Questionnaire (AUDIT-C) 1. How often do you have a drink containing alcohol?: Never 3. How often do you have six or more drinks on one occasion?: Never Total Score: 0 Score Reviewed/Action Taken: Yes ALETA-7 AMB Questionnaire ALETA-7 Date ALETA - 7 assessed: 01/02/24 Feeling nervous, anxious, or on edge: 0 = Not at all Not being able to stop or control worryin = Not at all Worrying too much about different things: 0 = Not at all Trouble relaxin = Not at all Being so restless that it is hard to sit still: 0 = Not at all Becoming easily annoyed or irritable: 0 = Not at all Feeling afraid as if something awful might happen: 0 = Not at all Total ALETA-7 score (0-4 normal; 5-9 mild; 10-14 moderate; 15-21 severe): 0 Source: Developed by Drs. Giovani Robledo, Angélica Casper, Odin Narayan and colleagues, with an educational florentin from [employer]. ALETA-7 Assessment Billing ALETA-7 Assessment Tool: ALETA-7 Assessment 05023 Review of Systems Const Denies chills and Denies fever(s) ENT Denies epistaxis and Denies nasal discharge Card Denies chest pain Resp Denies chest congestion, Denies cough and Denies hemoptysis GI Denies diarrhea and Denies nausea Skin/Breast Denies rash Neuro Reports no additional complaints Psych Reports no additional complaints Endo Reports no additional complaints Physical exam (Primary Care) Tobacco/Smoking Status: Tobacco use Status Tobacco use date assessed 09/26/23 09/26/23 09:59 Patient Tobacco Use Status Former Tobacco user 09/26/23 09:59 Tobacco use type Cigarette 09/26/23 09:59 e-Cigarette/Vaping Use Never Used 09/26/23 09:59 Depression Screening Interpretation: Negative Thrive Assessment: Date of Thrive Assessment Date Thrive assessed 05/23/23 09/26/23 09:59 Currently or been in a relationship where the following occur: I choose not to answer Const General: cooperative, comfortable and no acute distress Orientation/consciousness: patient oriented x3 HENMT Head: Yes normocephalic Eyes General: appearance normal, both eyes and all related structures Neck Neck: Yes supple Resp Effort & Inspection: normal respiratory effort, no cough and no stridor Cardio Rhythm: regular rhythm Heart sounds: S1 normal heart sound present and S2 normal heart sound present Skin General skin exam: turgor normal Neuro General: patient oriented x3, tone normal and moves all extremities Extrem Right lower extremity: no edema Left lower extremity: no edema Coding Level of Care Code Est Pt Level 4 (15002) Diagnoses Pre-op evaluation Z01.818 Cortical age-related cataract of right eye H25.011 Age-related cataract type: cortical Cataract type: age-related Laterality: right Controlled type 2 diabetes mellitus with diabetic polyneuropathy, without long-term current use of insulin E11.42 Diabetes mellitus complication detail: with polyneuropathy Diabetes mellitus complication status: with neurologic complications Diabetes mellitus extermination inspector insulin use: without extermination inspector use Mucopurulent chronic bronchitis J41.1 COPD type: chronic bronchitis Chronic bronchitis type: mucopurulent Gastroesophageal reflux disease without esophagitis K21.9 Esophagitis presence: without esophagitis Anxiety, generalized F41.1 Lipid disorder E78.9 Chronic major depressive disorder, recurrent episode F33.9 Additional Codes ALETA-7 Assessment Billing - ALETA-7 Assessment Tool: ALETA-7 Assessment 35494 ([id number]) Assessment & Plan Assessment & Plan (1) Pre-op evaluation: Code(s): Z01.818 - Encounter for other preprocedural examination Category: Medical (2) Cataract: Code(s): H26.9 - Unspecified cataract Category: Medical Qualifiers: Age-related cataract type: cortical Cataract type: age-related Laterality: right Qualified Code(s): H25.011 - Cortical age-related cataract, right eye (3) Diabetes type 2, controlled: Code(s): E11.9 - Type 2 diabetes mellitus without complications Category: Medical Qualifiers: Diabetes mellitus complication detail: with polyneuropathy Diabetes mellitus complication status: with neurologic complications Diabetes mellitus half-way insulin use: without half-way use Qualified Code(s): E11.42 - Type 2 diabetes mellitus with diabetic polyneuropathy (4) COPD (chronic obstructive pulmonary disease): Code(s): J44.9 - Chronic obstructive pulmonary disease, unspecified Category: Medical Qualifiers: COPD type: chronic bronchitis Chronic bronchitis type: mucopurulent Qualified Code(s): J41.1 - Mucopurulent chronic bronchitis (5) GERD (gastroesophageal reflux disease): Code(s): K21.9 - Gastro-esophageal reflux disease without esophagitis Category: Medical Qualifiers: Esophagitis presence: without esophagitis Qualified Code(s): K21.9 - Gastro-esophageal reflux disease without esophagitis (6) Anxiety, generalized: Code(s): F41.1 - Generalized anxiety disorder Category: Medical (7) Lipid disorder: Code(s): E78.9 - Disorder of lipoprotein metabolism, unspecified Category: Medical (8) Chronic major depressive disorder, recurrent episode: Code(s): F33.9 - Major depressive disorder, recurrent, unspecified Category: Medical Plan Patient came in today for preop evaluation for cataract surgery right eye on January 13 By [facility] Patient has a history of diabetes which is controlled, last hemoglobin A1c was 6.1 November of this year Hyperlipidemia, COPD, chronic GERD, diabetic polyneuropathy, history of kidney stones causing hydronephrosis, kidney functions intact, anxiety history of depression and osteopenia Medication list reviewed New set of lab order placed Patient offer no new complaints today No signs of infection Patient is stable for cataract surgery Orders: Orders Comprehensive Met. Panel Today E11.42 - Type 2 diabetes mellitus with diabetic polyneuropathy, E78.9 - Disorder of lipoprotein metabolism, unspecified, F33.9 - Major depressive disorder, recurrent, unspecified, F41.1 - Generalized anxiety disorder, H26.9 - Unspecified cataract, J41.1 - Mucopurulent chronic bronchitis, K21.9 - Gastro-esophageal reflux disease without esophagitis, N13.30 - Unspecified hydronephrosis, Z01.818 - Encounter for other preprocedural examination LDL Cholesterol Direct Today E11.42 - Type 2 diabetes mellitus with diabetic polyneuropathy, E78.9 - Disorder of lipoprotein metabolism, unspecified, F33.9 - Major depressive disorder, recurrent, unspecified, F41.1 - Generalized anxiety disorder, H26.9 - Unspecified cataract, J41.1 - Mucopurulent chronic bronchitis, K21.9 - Gastro-esophageal reflux disease without esophagitis, N13.30 - Unspecified hydronephrosis, Z01.818 - Encounter for other preprocedural examination Complete Blood Count Auto Diff Today E11.42 - Type 2 diabetes mellitus with diabetic polyneuropathy, E78.9 - Disorder of lipoprotein metabolism, unspecified, F33.9 - Major depressive disorder, recurrent, unspecified, F41.1 - Generalized anxiety disorder, H26.9 - Unspecified cataract, J41.1 - Mucopurulent chronic bronchitis, K21.9 - Gastro-esophageal reflux disease without esophagitis, N13.30 - Unspecified hydronephrosis, Z01.818 - Encounter for other preprocedural examination
== END 2024-01-02 13:47 | disposition home or self-care (01) ==
PROVIDERS: PCP Internal Medicine; Visit Provider Internal Medicine
DX: E11.42 Type 2 diabetes mellitus with diabetic polyneuropathy (principal); J41.1 Mucopurulent chronic bronchitis; F33.9 Major depressive disorder, recurrent, unspecified; Z01.818 Encounter for other preprocedural examination; H25.011 Cortical age-related cataract, right eye; K21.9 Gastro-esophageal reflux disease without esophagitis; F41.1 Generalized anxiety disorder; E78.9 Disorder of lipoprotein metabolism, unspecified

== ENCOUNTER 2024-01-02 12:42 | Outpatient (REF) | payer OTHER, SELFPAY ==
[2024-01-02 16:02] LABS: MANUAL DIFF FLAG NO
[2024-01-02 16:06] LABS: Basophils Absolute Auto 0.1 X10*3/uL (0.0-0.2); Eosinophils Absolute Auto 0.5 X10*3/uL (0.0-0.4); Eosinophils Percent Auto 4.9 % (0-4); Hematocrit 38.1 % (37.0-47.0); Hemoglobin 12.2 g/dl (12.0-16.0); Imm Gran Abs Auto 0.03 X10*3/uL (0.00-0.03); Imm Gran Pct Auto 0.3 % (0.0-0.4); Lymphocytes Absolute Auto 2.6 X10*3/uL (1.2-4.9); Lymphocytes Percent Auto 27.7 % (20-40); Mean Corpuscular Hemoglobin 30.3 pg (27.0-33.0); Mean Corpuscular Volume 94.8 fL (80.0-98.0); Monocytes Absolute Auto 0.7 X10*3/uL (0.1-1.2); Monocytes Percent Auto 7.8 % (2-11); Neutrophils Absolute Auto 5.4 x10*3/uL (2.0-8.3); Neutrophils Percent Auto 58.3 % (45-73); Platelet Count 483 X10*3/uL (160-400); Red Blood Count 4.02 X10*6/uL (4.20-5.50); Red Cell Distribution Width 12.7 % (11.0-16.0); White Blood Count 9.3 X10*3/uL (4.8-10.8)
[2024-01-02 16:22] LABS: Alanine Aminotransferase 16 U/L (0-31); Albumin Level 3.9 g/dL (3.5-5.0); Alkaline Phosphatase 87 U/L (39-117); Anion Gap 12 (12-20); Aspartate Amino Transferase 23 U/L (5-31); Bilirubin Total 0.1 mg/dL (0.0-1.0); Blood Urea Nitrogen 15 mg/dL (9-16); Calcium 9.6 mg/dL (8.4-10.2); Carbon Dioxide 25 mmol/L (22-29); Chloride 107 mmol/L (96-108); Estimated Glomerular Filt Rate > 60; Glucose Random 95 mg/dL (60-115); Potassium 4.1 mmol/L (3.3-5.1); Sodium 140 mmol/L (135-145); Total Protein 6.4 g/dL (6.5-8.0)
[2024-01-04 13:08] LABS: LDL Cholesterol Direct 76 mg/dL (<100)
== END 2024-01-02 12:43 | disposition home or self-care (01) ==
LOC: HO.HMGCLDS 12:42
PROVIDERS: PCP Internal Medicine; Visit Provider Internal Medicine
DX: Z01.818 Encounter for other preprocedural examination (principal); E11.36 Type 2 diabetes mellitus with diabetic cataract; H25.011 Cortical age-related cataract, right eye; E11.42 Type 2 diabetes mellitus with diabetic polyneuropathy; J41.1 Mucopurulent chronic bronchitis; K21.9 Gastro-esophageal reflux disease without esophagitis; N13.30 Unspecified hydronephrosis; F41.1 Generalized anxiety disorder; E78.9 Disorder of lipoprotein metabolism, unspecified; H26.9 Unspecified cataract; F33.9 Major depressive disorder, recurrent, unspecified
CPT/HCPCS: 36415; 80053; 83721; 85025; 96127; 99212

== ENCOUNTER 2024-01-28 11:02 | Outpatient (AMB) | payer OTHER, SELFPAY ==
[2024-01-28 11:06] VITALS: BP 138/66; BMI 23.5
--- NOTE | 2024-01-28 11:06 | MHC.OFFVIS ---
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 Intake Note: urinary incontinence Supervising Film Or Videotape Editor Required: No Atomic Process Engineer: Atomic Process Engineer Present (Nayeli) Allergies albuterol Allergy (Severe, Verified 01/28/24 11:09) panic attacks naproxen Allergy (Severe, Verified 01/02/24 12:48) rash fosamx Adverse Reaction (Uncoded 11/12/23 09:52) Diarrhea Medication List - Last Reconciled 01/28/24 by Nayeli Henderson LPN aspirin 81 mg PO DAILY atorvastatin 80 mg PO DAILY 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 meter (Vertical Performance PartnersTouch Verio Flex Meter) Use to check blood sugar BID prn cholecalciferol (vitamin D3) 25 mcg PO DAILY 90 days dorzolamide 2% 1 drp ophthalmic (eye) BID fluticasone propionate 220 mcg/actuation (Flovent HFA) 2 puffs inhalation BID lancets (Vertical Performance PartnersTouch Delica Plus Lancet) Use to check blood sugar BID prn lancets (FreeStyle Lancets) As directed lisinopril 5 mg PO DAILY metformin ER 1,000 mg (2 x 500 mg) PO DAILY netarsudil-latanoprost 0.02-0.005 % (Rocklatan) 1 drp ophthalmic (eye) BEDTIME OneTouch Verio test strips (blood sugar diagnostic) Use to check blood sugar BID prn NS potassium citrate ER 10 mEq PO BID 90 days pyridoxine (vitamin B6) 100 mg PO DAILY 90 days roflumilast 500 mcg PO DAILY 90 days sertraline 100 mg PO DAILY 90 days tamsulosin 0.4 mg PO BEDTIME Post menopausal: No Patient : No HPI Comments Details: 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 She is doing well with concerns: urge incontinence of bladder and bowel, she denies any urinary symptoms. Admits to having about a pot of coffee a day, sometimes decafe, (10 cups) with 1 glass of water per day. Currently not sexually active. Denies any vaginal dryness or irritation. Attempting to eat a healthy diet with calcium and vitamin D and stays active with exercise. Last pap smear; 2021. Last mammogram; 2020. Cologard is UTD. Denies any family history of breast, ovarian or colon cancer. [facility], [facility] Medical History (Updated 01/28/24 @ 11:38 by Natalya Correia CNM) Urgency incontinence Pulmonary nodules Cough Back pain Diabetic polyneuropathy associated with type 2 diabetes mellitus Depression GERD (gastroesophageal reflux disease) COPD (chronic obstructive pulmonary disease) Overweight (BMI 25.0-29.9) Dyslipidemia Vitamin D deficiency Non-toxic multinodular goiter Diabetes type 2, controlled Surgical History Hx of eye surgery Hx of cholecystectomy History of ganglion cyst Hx of hysterectomy Family History Father No problems noted. Mother Vulva cancer Maternal Uncle Diabetes mellitus Maternal Aunt Diabetes mellitus Social History Housing: House Alcohol intake: never Patient Tobacco Use Status: Former Tobacco user Tobacco use type: Cigarette Years Smoked: 40 years e-Cigarette/Vaping Use: Never Used service: No Current occupational status: retired Cognitive needs: No Hearing needs: No Vision needs: No Female Reproductive History Menstrual Age of Menarche: 15 Menopause type: surgical Total pregnancies: 4 Full term: 2 Number of Living Children: 2 Date of last pap smear: 01/03/22 History of abnormal pap smear: No History of STI: No Date of Mammogram: 10/10/23 History of abnormal mammogram: No Review of Systems Const All systems reviewed & are unremarkable except as noted in HPI and below Reports as per HPI Eyes Reports no additional complaints ENT Reports no additional complaints Card Reports no additional complaints Resp Reports no additional complaints GI Reports as per HPI and Reports no additional complaints Reports as per HPI Musc Reports no additional complaints Skin/Breast Reports as per HPI Neuro Reports no additional complaints Psych Reports no additional complaints Endo Reports no additional complaints Paulo/Lymph Reports no additional complaints Aller/Immun Reports no additional complaints Physical Exam Vital Signs: Last Vital Signs BP 138/66 01/28/24 11:06 BMI result Body Mass Index 23.5 Const General: cooperative, healthy appearing, no acute distress, well developed and alert Orientation/consciousness: patient oriented x3 HEENT Head: Yes normal to inspection Eyes General: appearance normal, both eyes and all related structures Neck Neck: Yes normal visual inspection Thyroid: Thyroid normal Chest Chest palpation & inspection: normal inspection of the chest and other (no puckering, dimpling, peau de orange, retraction, discharge, masses) Breast/axilla inspection: normal inspection of the breasts Breast/axilla palpation: normal palpation of the breasts Resp Effort & Inspection: normal respiratory effort GI Inspection: Yes normal to inspection Palpation (GI): Soft to palpation Rectal Exam - Female: deferred General: Yes bladder normal to palpation External Female Exam: normal external appearance and normal appearance of the urethra Speculum Exam - Vagina: normal appearance of the vagina, normal palpation, normal vaginal discharge and vagina atrophic Speculum Exam - Cervix: normal appearance of the cervix and Cervix absent (Vaginal cuff no lesions or nodules) Bimanual exam- vagina & uterus: normal bimanual exam, normal palpation, bladder normal to palpation and uterus absent Bimanual Exam- Adnexa, other: no masses Skin General skin exam: no rashes or lesions noted Rashes: no rashes Neuro General: patient oriented x3 Cognition (Neuro): normal cognition Extrem General: Yes normal to inspection Psych Attitude: cooperative Thought process: Normal thought process present Assessment & Plan Assessment & Plan (1) Encounter for well woman exam with routine gynecological exam: Code(s): Z01.419 - Encounter for gynecological examination (general) (routine) without abnormal findings Category: Medical (2) Urgency incontinence: Code(s): N39.41 - Urge incontinence Category: Medical Plan Discussed: Current recommendations for pap smears per ASCCP guidelines. Breast awareness, periodic self breast exams and yearly mammogram. Maintain a healthy lifestyle, well balanced diet including Calcium 1,200 mg and Vitamin D 800 IU daily, and routine exercise. Limit caffeine 1-2 cups per day, tapered down slowly, increase water hydration throughout the day. Referral to urology placed. Advised to see your primary care for GI referral due to bowel incontinence. Patient verbalizes understanding and agrees to the plan of care. She was given opportunity to ask questions and all questions were answered to the best of my ability. Return to the office 1-2 years, or as needed. This note is constructed using voice recognition software. While every effort has been made to ensure accuracy, home management supervisor errors may have been included. RTO in 1 year for annual business and marketing teacher exam. Orders: Referrals Urology Referral N39.41 - Urge incontinence Coding Level of Care Code Est Pt Prev Care >65y(92206) Diagnoses Encounter for well woman exam with routine gynecological exam Z01.419 Urgency incontinence N39.41
== END 2024-01-28 11:44 | disposition home or self-care (01) ==
LOC: HO.HWS 11:02
PROVIDERS: PCP Internal Medicine; Visit Provider Advanced Practice Midwife
DX: Z01.419 Encounter for gynecological examination (general) (routine) without abnormal findings (principal); N39.41 Urge incontinence
CPT/HCPCS: 99397

== ENCOUNTER → 2024-01-28 11:02 | Outpatient (BNVA) | payer OTHER, SELFPAY | PROVIDERS: PCP Internal Medicine; Visit Provider Advanced Practice Midwife | DX: Z01.419 Encounter for gynecological examination (general) (routine) without abnormal findings (principal); N39.41 Urge incontinence | CPT/HCPCS: 99397 ==

== ENCOUNTER 2024-02-16 10:44 | Outpatient (AMB) | payer OTHER, SELFPAY ==
[2024-02-16 10:46] VITALS: BP 132/70; PULSE 86; BMI 23.4
--- NOTE | 2024-02-16 10:46 | A.OFFVIS_ITS ---
Vital Signs 02/16/24 10:46 Height 5 ft 2 in Weight 128 lb BMI 23.4 BP 132/70 Blood Pressure Location Lt brachial Position Sitting Pulse 86 Pulse Source Pulse Oximeter Intake Visit Reasons: F/u- MNG Intake Note: New patient present today for MNG office visit. Supervisor Cutting And Boning Required: No Accompanied by: Self / Same As Patient Allergies albuterol Allergy (Severe, Verified 02/16/24 10:50) panic attacks naproxen Allergy (Severe, Verified 02/16/24 10:50) rash fosamx Adverse Reaction (Uncoded 02/16/24 10:50) Diarrhea HPI Comments Details: 73 YO F with PMHx NTMNG who is seen in F/U for the same. She also sees Dr. Neff in our office for type 2 DM , last visit Nov 2023, well controlled on oral meds Prior HPI She has a longstanding history of a NTMNG. Most of her nodules are subcentimeter, but she does have 1 spongiform nodule measuring 1.4 cm right mid and a left superior 1 cm TR4 nodule. She denies any symptoms of hyper or hypothyroidism. She denies any compressive symptoms currently. She denies any personal history of radiation to the head or the neck. She has a family history of thyroid cancer in her niece and sister . She has not had any biopsies of her nodules in the past. Physical exam General: sitting comfortably in no acute distress HEENT: normocephalic/atraumatic, EOM intact, moist oral mucosa Neck: supple, symmetrical, no thyromegaly , no dorsocervical or supraclavicular fat pads Cardiac: normal heart sounds Pulm: normal breath sounds B/L, no added breath sounds Abd: not distended, no tenderness Extremities: no edema, no signs of myxedema Laboratory Tests 05/23/23 09:29 TSH 1.16 Imaging US THYROID 03/01 CLINICAL INFORMATION: Nontoxic multinodular goiter. COMPARISON: Ultrasound soft tissue head/neck thyroid dated 01/29/2022 and 01/22/2021. TECHNIQUE: Linear transducer grayscale and color Doppler examination with attention to the region of the thyroid. FINDINGS: SIZE: Measurements of the thyroid lobes and nodules are given in sagittal, anteroposterior and transverse dimensions respectively. Right Thyroid Lobe: 5.0 x 1.4 x 1.4 cm, volume 5.2 mL. Previously 4.9 x 1.5 x 1.4 cm, volume 5.4 mL. Parenchyma: The gland echotexture is homogeneous. Thyroid vascularity is increased. Left Thyroid Lobe: 3.9 x 1.4 x 1.2 cm, volume 3.4 mL. Previously 4.2 x 1.2 x 1.2 cm, volume 3.0 mL. Parenchyma: The gland echotexture is homogeneous. Thyroid vascularity is increased. Isthmus: 0.35 cm in maximum AP dimension. Previously 0.39 cm. Estimated total number of nodules greater than or equal to 1 cm: 1. 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 Location: Isthmus. Size: 0.36 x 0.26 x 0.42 cm, volume 0.02 mL. Previously: 0.52 x 0.25 x 0.39 cm, volume 0.03 mL. Nodule characteristics: Composition: Cystic(0). ACR TI-RADS total points: 0 Previous: 4 ACR TI-RADS category: 1 Previous: 4 Significant change in size (>/= 20% in 2 dimensions and minimal increase of 2 mm or 50% or greater increase in volume): No Change in features: Yes Change in ACR TI-RADS risk category: Yes 2. Location: Right inferior. Size: 0.94 x 0.49 x 0.64 cm, volume 0.15 mL. Previously: 0.60 x 0.37 x 0.56 cm, volume 0.07 mL. Nodule characteristics: Composition: Spongiform (0). Echogenicity: Anechoic (0). Shape: Not taller than wide (0). Margins: Smooth (0). Echogenic Foci: None (0). ACR TI-RADS total points: 0 Previous: 3 ACR TI-RADS category: 1 Previous: 3 Significant change in size (>/= 20% in 2 dimensions and minimal increase of 2 mm or 50% or greater increase in volume): Yes Change in features: No Change in ACR TI-RADS risk category: No 3. Location: Right inferior. Size: 1.5 x 0.72 x 0.82 cm, volume 0.50 mL. Previously: 1.4 x 0.71 x 0.82 cm, volume 0.42 mL. Nodule characteristics: Composition: Spongiform (0). Echogenicity: Anechoic (0). Shape: Not taller than wide (0). Margins: Smooth (0). Echogenic Foci: None (0). ACR TI-RADS total points: 0 Previous: 0 ACR TI-RADS category: 1 Previous: 1 Significant change in size (>/= 20% in 2 dimensions and minimal increase of 2 mm or 50% or greater increase in volume): No Change in features: No Change in ACR TI-RADS risk category: No 4. Location: Left superior. Size: 0.95 x 0.73 x 0.67 cm, volume 0.24 mL. Previously: 0.95 x 0.75 x 0.64 cm, volume 0.24 mL. Nodule characteristics: Composition: Mixed cystic and solid (1). Echogenicity: Hypoechoic (2). Shape: Not taller than wide (0). Margins: Smooth (0). Echogenic Foci: Punctate echogenic foci (3). ACR TI-RADS total points: 6 Previous: 6 ACR TI-RADS category: 4 Previous: 4 Significant change in size (>/= 20% in 2 dimensions and minimal increase of 2 mm or 50% or greater increase in volume): No Change in features: No Change in ACR TI-RADS risk category: No 5. Location: Left inferior. Size: 0.60 x 0.31 x 0.50 cm, volume 0.05 mL. Previously: Not seen on the previous study. Nodule characteristics: Composition: Spongiform (0). Echogenicity: Anechoic (0). Shape: Not taller than wide (0). Margins: Smooth (0). Echogenic Foci: None (0). ACR TI-RADS total points: 0 ACR TI-RADS category: 1 NODES: No lymphadenopathy is seen in the tissue surrounding the thyroid gland. US/US thyroid IMPRESSION: Stable left upper 1.0 cm TR 4 thyroid nodule. Continued surveillance recommended. [facility] Medical History (Updated 01/28/24 @ 11:38 by Natalya Correia CNM) Urgency incontinence Pulmonary nodules Cough Back pain Diabetic polyneuropathy associated with type 2 diabetes mellitus Depression GERD (gastroesophageal reflux disease) COPD (chronic obstructive pulmonary disease) Overweight (BMI 25.0-29.9) Dyslipidemia Vitamin D deficiency Non-toxic multinodular goiter Diabetes type 2, controlled Surgical History (Updated 02/16/24 @ 10:51 by KIERRA Patrick) History of cataract surgery Hx of eye surgery Hx of cholecystectomy History of ganglion cyst Hx of hysterectomy Family History Father No problems noted. Mother Vulva cancer Maternal Uncle Diabetes mellitus Maternal Aunt Diabetes mellitus Social History Housing: House Alcohol intake: never Patient Tobacco Use Status: Former Tobacco user Tobacco use type: Cigarette Years Smoked: 40 years e-Cigarette/Vaping Use: Never Used service: No Current occupational status: retired Cognitive needs: No Hearing needs: No Vision needs: No Female Reproductive History Menstrual Age of Menarche: 15 Physical Exam Vital Signs: Last Vital Signs Pulse 86 02/16/24 10:46 BP 132/70 02/16/24 10:46 BMI result Body Mass Index 23.4 Assessment & Plan Assessment & Plan (1) Non-toxic multinodular goiter: Code(s): E04.2 - Nontoxic multinodular goiter Category: Medical Plan: Lpljmbu-xik-jllv-old female with a history of multinodular goiter and family history of thyroid cancer. Appears clinically and biochemically euthyroid Last thyroid ultrasound February 2023 showed a 1 cm left superior TR 4 nodule that needs follow up. She does not have any compressive symptoms. Plan: -ordered thyroid ultrasound to be done now -follow up in 8 weeks to discuss results Orders: Orders US thyroid Today E04.1 - Nontoxic single thyroid nodule Patient Instructions: Do thyroid ultrasound Follow up in 8 weeks to discuss results Coding Level of Care Code Est Pt Level 3 (81277) Diagnoses Non-toxic multinodular goiter E04.2
== END 2024-02-16 11:31 | disposition home or self-care (01) ==
PROVIDERS: PCP Internal Medicine; Visit Provider Student in an Organized Health Care Education/Training Program
DX: E04.2 Nontoxic multinodular goiter (principal)
CPT/HCPCS: 99213

== ENCOUNTER → 2024-02-16 10:44 | Outpatient (BNVA) | payer OTHER, SELFPAY | PROVIDERS: PCP Internal Medicine; Visit Provider Student in an Organized Health Care Education/Training Program | DX: E04.2 Nontoxic multinodular goiter (principal) | CPT/HCPCS: 99212 ==

== ENCOUNTER 2024-02-24 10:22 | Outpatient (REF) | payer OTHER, SELFPAY | END 2024-02-24 10:23 | disposition home or self-care (01) | LOC: HO.HMGCX 10:22 | PROVIDERS: PCP Internal Medicine; Visit Provider Student in an Organized Health Care Education/Training Program | DX: E04.1 Nontoxic single thyroid nodule (principal) | CPT/HCPCS: 76536 ==

== ENCOUNTER → 2024-02-24 10:25 | Outpatient (BNV) | payer OTHER, SELFPAY | PROVIDERS: PCP Internal Medicine; Visit Provider Radiology Diagnostic Radiology | DX: E04.1 Nontoxic single thyroid nodule (principal) | CPT/HCPCS: 76536 ==

== ENCOUNTER 2024-03-11 11:17 | Outpatient (AMB) | payer OTHER, SELFPAY ==
--- NOTE | 2024-03-11 11:21 | A.OFFVIS_ITS ---
Vital Signs 03/11/24 11:25 Height 5 ft 2 in Weight 127 lb 13.89 oz BMI 23.4 BP 114/76 Blood Pressure Location Rt brachial Position Sitting Pulse 70 Pulse Source Pulse Oximeter Intake Visit Reasons: DM/Confirmed Intake Note: Patient presents today for a follow-up on Type 2 Diabetes Mellitus: Last Diabetic eye exam was on: DUE Last Podiatry exam was on: Does not see a Bureau Chief Most recent HbA1c: 6.1%, 03/11/2024 Random Glucose- 69 mg/dL, Today 11:30 AM, Blood Sugar was rechecked went up to 99 mg/dL 11:58 AM. Offline Editor Required: No Accompanied by: Self / Same As Patient Allergies albuterol Allergy (Severe, Verified 02/16/24 10:50) panic attacks naproxen Allergy (Severe, Verified 02/16/24 10:50) rash fosamx Adverse Reaction (Uncoded 02/16/24 10:50) Diarrhea HPI Comments Details: 73 YO F with PMHx NTMNG & type 2 diabetes presenting for diabetes follow up Diabetes: On metformin 1000mg once daily (decreased from twice daily in november). POC A1C today 6.1%. Today A1C 6.1% Compliant with medications. Has lost 50 pounds since initial diagnosis. Monitoring glucose with OneTouch Verio-average glucose 126-165 with average of 141. Glucose in office today 69. No low symptoms. She has not eaten yet today and has been running errands No hypoglycemia Micro/macrovascular complications: Ophtho, neuropathy/RLS Thyroid: Following with Dr Kahn She has a longstanding history of a NTMNG. ROS CONSTITUTIONAL: Denies weight loss, fever and chills. HEENT: Denies changes in vision and hearing. RESPIRATORY: Denies SOB and cough. CV: Denies palpitations and CP GI: Denies abdominal pain, nausea, vomiting and diarrhea. : Denies dysuria and urinary frequency. MSK: Denies new myalgia and joint pain. SKIN: Denies rash and pruritus. NEUROLOGICAL: Denies headache PSYCHIATRIC: Denies recent changes in mood. PHYSICAL EXAM: GENERAL: Alert and oriented x 3. NAD EYES: EOMI. Anicteric. HENT: Moist mucous membranes. No scleral icterus. Heterogenous thyroid. No cervical lymphadenopathy. LUNGS: Clear to auscultation bilaterally. CARDIOVASCULAR: Regular rate and rhythm. No murmur. No JVD. ABDOMEN: Soft, non-tender +bs EXTREMITIES: No edema. Non-tender. SKIN: No rashes or lesions. Warm. NEUROLOGIC: No focal neurological deficits. CN II-XII grossly intact PSYCHIATRIC: Cooperative. Appropriate mood and affect ? [facility] Medical History (Updated 01/28/24 @ 11:38 by Natalya Correia CNM) Urgency incontinence Pulmonary nodules Cough Back pain Diabetic polyneuropathy associated with type 2 diabetes mellitus Depression GERD (gastroesophageal reflux disease) COPD (chronic obstructive pulmonary disease) Overweight (BMI 25.0-29.9) Dyslipidemia Vitamin D deficiency Non-toxic multinodular goiter Diabetes type 2, controlled Surgical History (Updated 02/16/24 @ 10:51 by KIERRA Patrick) History of cataract surgery Hx of eye surgery Hx of cholecystectomy History of ganglion cyst Hx of hysterectomy Family History Father No problems noted. Mother Vulva cancer Maternal Uncle Diabetes mellitus Maternal Aunt Diabetes mellitus Social History Housing: House Alcohol intake: never Patient Tobacco Use Status: Former Tobacco user Tobacco use type: Cigarette Years Smoked: 40 years e-Cigarette/Vaping Use: Never Used service: No Current occupational status: retired Cognitive needs: No Hearing needs: No Vision needs: No Female Reproductive History Menstrual Age of Menarche: 15 Physical Exam Vital Signs: Last Vital Signs Pulse 70 03/11/24 11:25 BP 114/76 03/11/24 11:25 BMI result Body Mass Index 23.4 Results AMB Hemoglobin A1c AMB Hemoglobin A1c 6.1 % Last Edit by KIERRA Cabral on 03/11/24 11:52 Results Reviewed Results Reviewed: Laboratory Last Values Glucose (Clinic) 69 mg/dL (60-115) 03/11/24 11:30 Assessment & Plan Assessment & Plan (1) Diabetic polyneuropathy associated with type 2 diabetes mellitus: Code(s): E11.42 - Type 2 diabetes mellitus with diabetic polyneuropathy Category: Medical Plan: Controlled on current medication. May decrease metformin to 500mg daily and return in 3 months Orders: Orders AMB Hemoglobin A1c Today E11.42 - Type 2 diabetes mellitus with diabetic polyneuropathy Medications: Changed From metformin ER 1,000 mg (2 x 500 mg) PO DAILY 180 tabs 3RF To metformin ER 500 mg PO DAILY 90 tabs 3RF Coding Level of Care Code Est Pt Level 4 (49265) Diagnoses Diabetic polyneuropathy associated with type 2 diabetes mellitus E11.42
[2024-03-11 11:25] VITALS: BP 114/76; PULSE 70; BMI 23.4
[2024-03-11 11:34] LABS: Glucose, Whole Blood 69 mg/dL (60-115)
[2024-03-11 11:58] LABS: Glucose, Whole Blood 99 mg/dL (60-115)
== END 2024-03-11 11:55 | disposition home or self-care (01) ==
PROVIDERS: PCP Internal Medicine; Visit Provider Internal Medicine
DX: E11.42 Type 2 diabetes mellitus with diabetic polyneuropathy (principal)

== ENCOUNTER → 2024-03-11 11:17 | Outpatient (BNVA) | payer OTHER, SELFPAY | PROVIDERS: PCP Internal Medicine; Visit Provider Internal Medicine | DX: E11.42 Type 2 diabetes mellitus with diabetic polyneuropathy (principal); Z79.84 Long term (current) use of oral hypoglycemic drugs | CPT/HCPCS: 82947; 83036; 99212 ==

== ENCOUNTER 2024-03-12 10:09 | Outpatient (AMB) | payer OTHER, SELFPAY ==
[2024-03-12 10:16] VITALS: BP 134/72; PULSE 75; O2SAT 96; BMI 23.2
--- NOTE | 2024-03-12 10:16 | MHC.OFFVIS ---
Vital Signs 03/12/24 10:16 Height 5 ft 2 in Weight 127 lb BMI 23.2 BP 134/72 Blood Pressure Location Lt brachial Position Sitting Pulse 75 Pulse Source Pulse Oximeter Pulse Oximetry (%) 96 Oxygen Delivery Method Room Air Intake Visit Reasons: asthma [employer] Required: No Allergies albuterol Allergy (Severe, Verified 03/12/24 10:19) panic attacks naproxen Allergy (Severe, Verified 03/12/24 10:19) rash fosamx Adverse Reaction (Uncoded 03/12/24 10:19) Diarrhea HPI Comments Details: The patient is a 73-year-old woman with a known history of COPD. I do not have her records available at this time. She has been doing well on the Daliresp in addition to the Spiriva. However, the Spiriva is no longer covered she has not been using any respiratory inhalers. She cannot tolerate beta agonist due to adverse effects. Therefore, she is not on either a short-acting nor a long-acting beta agonist. She also had use Flovent in the past but she is no longer using it. She has noticed that she'd been doing okay but she does get chest tightness and wheezing at times. She is concerned because she doesn't have any medicines right now to help those episodes. On listening to her exam she does have diminished breath sounds with prolonged expiratory phase and wheezing. My recommendation is for her to be on maintenance inhaler and also having short-acting bronchodilator as needed. Therefore, I will send her in cruise and also will send Xopenex HFA available for her for rescue. 05/30/2020 'the patient has a telephone visit. Overall her respiratory status has been stable. She responded very well to the trelegy inhaler but her insurance did not cover. Therefore she was switched over to Anoro an Arnuity. She still has some cough nonproductive in nature [id number] severity. Does get better with rescue inhaler. She also has some shortness of breath with activity [id number] severity. Otherwise the patient is without any other complaints. 07/05/2020 the patient is here for pulmonary follow-up visit. Overall the patient has been feeling a lot better. She has responded very well to Daliresp. She feels her congestion and wheezing has improved dramatically. She has not required any prednisone. She continues to have a productive cough [id number] severity. She does use Mucinex at times with good response. She also has a rescue inhaler but she has not use that as often. She also continues to month monitor her weight. She continues to reflux diet. This is helping her with reflux disease. She is part of the lung cancer screening program at [facility]. Her last CT scan per report was okay and she is scheduled for 1 year. She will be called when her next CAT scan is due. 07/05/2021 the patient is here for a pulmonary follow-up visit. The patient overall has been doing okay. She still continues to have a productive cough moderate severity. She does get some relief from the Daliresp. Still has significant chronic bronchitis. The cough usually keeps her up at nighttime. Patient is also having some shortness of breath. We did review her recent pulmonary function studies that she had demonstrating a mild obstructive ventilatory defect consistent mild COPD. She also had a CT scan of the chest as part of the lung cancer screening program in October 2020 demonstrating minimal pulmonary nodules. in addition to this she does have extensive emphysema. We will start the patient on azithromycin 3 times a week for chronic bronchitis. She has been able to tolerate a lot of inhalers. She did try Anoro and did not feel it was helping actually making him feel worse. She also tried Trelegy. Among other inhalers. She does not like the way the albuterol makes her feel. Will go ahead and start her on a cortical steroid. 01/07/2022 the patient is here for a pulmonary follow-up visit. Overall she is doing a lot better. Her cough is significantly improved. She still has a dry hacky cough at times. She has not been using the Flovent as much any longer. She did complete the course of azithromycin which was effective. And she is also tolerating the Daliresp. The patient did have a CT scan October 2021 and it was given a RADS score of 2. The patient does have emphysematous changes and stable pulmonary nodules. Overall the patient is doing well on the current respiratory regimen. I will make sure to provide her a short-acting muscarinic antagonist that she can use as needed since she cannot tolerate any beta agonist medication. 01/28/2023 the patient is here for pulmonary follow-up visit. The patient is doing well. Her cough is better breathing is better. She rarely uses a rescue inhaler. She cannot use any beta agonist. She was wondering about the new inhalers. Explained to her that most of them have a long-acting albuterol and therefore not recommended for her. She will continue with current regimen. I did recommend she can use her short-acting muscarinic antagonist along with the Flovent together an as-needed basis. She does not need the Flovent regularly. She did get a CT scan at [facility] over the summer 2022. It appears to be stable with rads 2 score. She has pulmonary nodules that are benign. Child another CT scans summer 2023. Otherwise patient is without any other complaints. She continues to tolerate the Daliresp well. This medication she will continue for her chronic bronchitis. 03/12/2024 the patient is here for a pulmonary follow-up visit. Overall she is doing well. She is no longer using the Flovent. Although she does not have a rescue inhaler. She has had issue with albuterol in the past which caused her to have significant adverse effects. She is willing to try Xopenex. The other options to give her adjuvant short-acting muscarinic antagonist, but apparently she also has a history of glaucoma so therefore this will be a relative contraindications. Will hold off on any muscarinic antagonist. The patient is participating to the lung cancer screening program. Her CT scan scheduled for October. Her last CT scan demonstrated some emphysema no significant findings though. She already quit smoking 13 years ago. The patient overall is doing well will follow-up in a year's time. If she has any issues with the short-acting beta agonist she will call. [facility] Medical History (Updated 03/14/24 @ 22:11 by Alen Colin MD) Glaucoma Urgency incontinence Pulmonary nodules Cough Back pain Diabetic polyneuropathy associated with type 2 diabetes mellitus Depression GERD (gastroesophageal reflux disease) COPD (chronic obstructive pulmonary disease) Overweight (BMI 25.0-29.9) Dyslipidemia Vitamin D deficiency Non-toxic multinodular goiter Diabetes type 2, controlled Surgical History (Updated 02/16/24 @ 10:51 by KIERRA Patrick) History of cataract surgery Hx of eye surgery Hx of cholecystectomy History of ganglion cyst Hx of hysterectomy Family History Father No problems noted. Mother Vulva cancer Maternal Uncle Diabetes mellitus Maternal Aunt Diabetes mellitus Social History Housing: House Alcohol intake: never Patient Tobacco Use Status: Former Tobacco user Tobacco use type: Cigarette Years Smoked: 40 years e-Cigarette/Vaping Use: Never Used service: No Current occupational status: retired Cognitive needs: No Hearing needs: No Vision needs: No Female Reproductive History Menstrual Age of Menarche: 15 Review of Systems Const Denies chills and Denies fever(s) ENT Denies epistaxis and Denies nasal discharge Card Denies chest pain Resp Denies chest congestion, Denies cough and Denies hemoptysis GI Denies diarrhea and Denies nausea Skin/Breast Denies rash Neuro Reports no additional complaints Psych Reports no additional complaints Endo Reports no additional complaints Physical Exam Vital Signs: Last Vital Signs Pulse 75 03/12/24 10:16 BP 134/72 03/12/24 10:16 Pulse Ox 96 03/12/24 10:16 Oxygen Delivery Method Room Air 03/12/24 10:16 BMI result Body Mass Index 23.2 Const General: alert Neck Neck: Yes normal visual inspection, Yes full ROM and Yes no lymphadenopathy Chest Chest palpation & inspection: normal inspection of the chest Resp Auscultation: no rhonchi, no wheezes and diminished lung sounds Cardio Rate: regular rate Rhythm: regular rhythm Heart sounds: S1 normal heart sound present and S2 normal heart sound present GI Palpation (GI): Soft to palpation and nontender Auscultation: normal bowel sounds Skin General skin exam: rashes and/or lesions noted Assessment & Plan Assessment & Plan (1) COPD (chronic obstructive pulmonary disease): Code(s): J44.9 - Chronic obstructive pulmonary disease, unspecified Category: Medical Qualifiers: COPD type: chronic bronchitis Chronic bronchitis type: mucopurulent Qualified Code(s): J41.1 - Mucopurulent chronic bronchitis (2) GERD (gastroesophageal reflux disease): Code(s): K21.9 - Gastro-esophageal reflux disease without esophagitis Category: Medical Qualifiers: Esophagitis presence: without esophagitis Qualified Code(s): K21.9 - Gastro-esophageal reflux disease without esophagitis (3) Pulmonary nodules: Comment: Subsolid based on a CT scan from October 2020 measuring 3-4 mm in size Code(s): R91.8 - Other nonspecific abnormal finding of lung field Category: Medical (4) Glaucoma: Code(s): H40.9 - Unspecified glaucoma Category: Medical Qualifiers: Glaucoma type: unspecified Laterality: unspecified laterality Qualified Code(s): H40.9 - Unspecified glaucoma Plan holding Flovent HFA start JEREMY as needed, trial xopenex NO ABDI/LAMA Continue Daliresp 500 mcg daily. (Roflumilast) Continue reflux diet and sleep with the head of bed elevated Continue lung cancer screening program 11/01 at [facility] Follow-up in 12 months Medications: New levalbuterol tartrate 45 mcg/actuation (Xopenex HFA) 1 puff inhalation Q4H PRN 15 grams 6RF shortness of breath or wheezing J45.909 - Unspecified asthma, uncomplicated Coding Level of Care Code Est Pt Level 4 (42553) Diagnoses Mucopurulent chronic bronchitis J41.1 COPD type: chronic bronchitis Chronic bronchitis type: mucopurulent Gastroesophageal reflux disease without esophagitis K21.9 Esophagitis presence: without esophagitis Pulmonary nodules R91.8 Glaucoma, unspecified glaucoma type, unspecified laterality H40.9 Glaucoma type: unspecified Laterality: unspecified laterality Time Spent (min) 16
== END 2024-03-12 10:33 | disposition home or self-care (01) ==
PROVIDERS: PCP Internal Medicine; Visit Provider Hospitalist
DX: J41.1 Mucopurulent chronic bronchitis (principal); K21.9 Gastro-esophageal reflux disease without esophagitis; R91.8 Other nonspecific abnormal finding of lung field; H40.9 Unspecified glaucoma
CPT/HCPCS: 99214

== ENCOUNTER → 2024-03-12 10:09 | Outpatient (BNVA) | payer OTHER, SELFPAY | PROVIDERS: PCP Internal Medicine; Visit Provider Hospitalist | DX: J41.1 Mucopurulent chronic bronchitis (principal); R91.8 Other nonspecific abnormal finding of lung field; K21.9 Gastro-esophageal reflux disease without esophagitis; H40.9 Unspecified glaucoma | CPT/HCPCS: 99212 ==

== ENCOUNTER 2024-04-30 10:33 | Outpatient (AMB) | payer OTHER, SELFPAY ==
--- NOTE | 2024-04-30 10:39 | A.OFFPC_ITS ---
Vital Signs 04/30/24 10:40 Height 5 ft 2 in Weight 132 lb BMI 24.1 BP 132/78 Blood Pressure Location Rt brachial Position Sitting Pulse 73 Pulse Source Pulse Oximeter Pulse Oximetry (%) 98 Oxygen Delivery Method Room Air Intake Visit Reasons: 4 fri f/u Allergies albuterol Allergy (Severe, Verified 04/30/24 10:42) panic attacks naproxen Allergy (Severe, Verified 04/30/24 10:42) rash fosamx Adverse Reaction (Uncoded 03/12/24 10:19) Diarrhea Medication List - Last Reconciled 04/30/24 by Alma Cash MD aspirin 81 mg PO DAILY atorvastatin 80 mg PO DAILY 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 meter (SpinNoteTouch Verio Flex Meter) Use to check blood sugar BID prn cholecalciferol (vitamin D3) 25 mcg PO DAILY 90 days dorzolamide 2% 1 drp ophthalmic (eye) BID fluticasone propionate 220 mcg/actuation (Flovent HFA) 2 puffs inhalation BID lancets (SpinNoteTouch Delica Plus Lancet) Use to check blood sugar BID prn lancets (FreeStyle Lancets) As directed levalbuterol tartrate 45 mcg/actuation (Xopenex HFA) 1 puff inhalation Q4H PRN lisinopril 5 mg PO DAILY metformin ER 500 mg PO DAILY netarsudil-latanoprost 0.02-0.005 % (Rocklatan) 1 drp ophthalmic (eye) BEDTIME OneTouch Verio test strips (blood sugar diagnostic) Use to check blood sugar BID prn NS potassium citrate ER 10 mEq PO BID 90 days pyridoxine (vitamin B6) 100 mg PO DAILY 90 days roflumilast 500 mcg PO DAILY 90 days sertraline 100 mg PO DAILY 90 days tamsulosin 0.4 mg PO BEDTIME Tobacco use date assessed: 04/30/24 Fall risk assessment: No Falls in past year Last assessed Fall Risk: 04/30/24 Dental Screening Dental Screen Date: 04/30/24 Did you have a dental visit in the last 12 months?: No Did you have a dental problem in the last 6 months where you did not have access to dental care?: No Was dental information given to patient?: No HPI 4 fri f/u HPI Details - The patient is a 73-year-old female pr esenting for a regular follow-up appointment for chronic condition management. - Management of Type 2 Diabetes Mellitus is through endocrinology now recent A1c results showing good control at 6.1% in March. - For Hyperlipidemia, the patient is yehuda ing atorvastatin. - Hypertension is managed with lisinopri l 5 mg, with no complications noted during this encounter. 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 - The patient does not report any new or ongoing concerns with her chronic conditions at this time. Depression and anxiety is stable patient is on sertraline 100 mg she is to continue that She is seeing Dr. Cueva for thyroid nodule and having yearly thyroid ultrasound Dr. Lomax for bladder disorder And Dr. Colin for COPD. Patient has stopped smoking 11 years ago . Patient had Cologuard done July, which was negative next 1 will be in Problem List - Type 2 Diabetes Mellitus - Hyperlipidemia - Hypertension - Osteoarthritis - depression/anxiety - bladder disorder - thyroid nodule Patient Instructions - Continue current medications as prescr ibed. - Undergo scheduled lab tests at the end of June as noted. - Stay warm and avoid going out in very cold weather to help manage arthritis symptoms. - Follow up in October as previously sche angélica. - No immediate refills needed; contact t he office if any changes or new prescriptions are required. Review of Systems - General: No fever no chills - Neurological: No headaches no dizziness - Ear nose throat: No sore throat no hearing difficulty no ear pain - Cardiovascular: No syncope, no chest pain, no palpitations - Gastrointestinal: No nausea vomiting or diarrhea - Endocrine: No polyuria polydipsia no heat intolerance - Genitourinary: No dysuria , no blood in urine Physical Exam General: No acute distress HEENT: No acute findings Neck: Supple Respiratory system: Lungs are clear, able to talk in full sentences, no audible wheeze cardiovascular: S1-S2 regular in rate and rhythm Gastrointestinal: No pain Extremities: No new findings CLOTH SHEARER: Alert awake oriented x3 motor sensory intact Skin: Normal turgor [facility] Medical History Glaucoma Urgency incontinence Pulmonary nodules Cough Back pain Diabetic polyneuropathy associated with type 2 diabetes mellitus Depression GERD (gastroesophageal reflux disease) COPD (chronic obstructive pulmonary disease) Overweight (BMI 25.0-29.9) Dyslipidemia Vitamin D deficiency Non-toxic multinodular goiter Diabetes type 2, controlled Surgical History History of cataract surgery Hx of eye surgery Hx of cholecystectomy History of ganglion cyst Hx of hysterectomy Family History Father No problems noted. Mother Vulva cancer Maternal Uncle Diabetes mellitus Maternal Aunt Diabetes mellitus Social History Housing: House Alcohol intake: never Patient Tobacco Use Status: Former Tobacco user Tobacco use type: Cigarette Years Smoked: 40 years e-Cigarette/Vaping Use: Never Used service: No Current occupational status: retired Cognitive needs: No Hearing needs: No Vision needs: No Female Reproductive History Menstrual Age of Menarche: 15 Questionnaire PHQ-9 Over the last 2 weeks, how often have you been bothered by any of the following problems? 1. Little interest or pleasure in doing things: not at all 2. Feeling down, depressed, or hopeless: not at all 3. Trouble falling or staying asleep, or sleeping too much: not at all 4. Feeling tired or having little energy: not at all 5. Poor appetite or overeating: not at all 6. Feeling bad about yourself - or that you are a failure or have let yourself or your family down: not at all 7. Trouble concentrating on things, such as reading the newspaper or watching television: not at all 8. Moving or speaking so slowly that other people could have noticed. Or the opposite - being so fidgety or restless that you have been moving around a lot more than usual: not at all 9. Thoughts that you would be better off or of hurting yourself in some way: not at all Total score: 0 Depression Screening Interpretation: Negative Depression Screening Done: Yes 48958 - PHQ-9 Billing: Yes Source: Developed by Drs. Giovani Robledo, Angélica Casper, Odin Narayan and colleagues, with an educational florentin from [employer]. Thrive Questionnaire Date Thrive assessed: 04/30/24 I am a: Patient What is your living situation today?: I have a steady place to live Within the past 12 months, did the food you bought not last and you didn't have the money to get more?: Never true Within the past 12 months, did you worry whether your food would run out before you got money to buy more?: Never true Do you have trouble paying for medicines?: No Do you have trouble getting transportation to medical appointments?: No Do you have trouble paying your heating and electricity bill?: No Do you have trouble taking care of your child, family member or friend?: No Do you have trouble with day-to-day activities such as bathing, preparing meals, shopping, managing finances, etc.?: No Are you currently unemployed and looking for a job?: No Are you interested in more education?: No Please select the resources that you would like help with: None Currently or been in a relationship where the following occur: No concerns reported THRIVE Score: 0 AUDIT C Alcohol Use Questionnaire (AUDIT-C) 1. How often do you have a drink containing alcohol?: Never 3. How often do you have six or more drinks on one occasion?: Never Total Score: 0 Score Reviewed/Action Taken: Yes ALETA-7 AMB Questionnaire ALETA-7 Date ALETA - 7 assessed: 04/30/24 Feeling nervous, anxious, or on edge: 0 = Not at all Not being able to stop or control worryin = Not at all Worrying too much about different things: 0 = Not at all Trouble relaxin = Not at all Being so restless that it is hard to sit still: 0 = Not at all Becoming easily annoyed or irritable: 0 = Not at all Feeling afraid as if something awful might happen: 0 = Not at all Total ALETA-7 score (0-4 normal; 5-9 mild; 10-14 moderate; 15-21 severe): 0 Source: Developed by Drs. Giovani Robledo, Angélica Casper, Odin Narayan and colleagues, with an educational florentin from [employer]. ALETA-7 Assessment Billing ALETA-7 Assessment Tool: ALETA-7 Assessment [id number] Physical exam (Primary Care) Vital Signs: Last Vital Signs Pulse 73 04/30/24 10:40 BP 132/78 04/30/24 10:40 Pulse Ox 98 04/30/24 10:40 Oxygen Delivery Method Room Air 04/30/24 10:40 BMI result Body Mass Index 24.1 Tobacco/Smoking Status: Tobacco use Status Tobacco use date assessed 04/30/24 04/30/24 10:43 Patient Tobacco Use Status Former Tobacco user 04/30/24 10:43 Tobacco use type Cigarette 04/30/24 10:43 e-Cigarette/Vaping Use Never Used 04/30/24 10:43 PHQ-9: PHQ-9 Score PHQ-9: Total score 0 04/30/24 10:43 Depression Screening Interpretation: Negative Thrive Assessment: Date of Thrive Assessment Date Thrive assessed 04/30/24 04/30/24 10:43 Currently or been in a relationship where the following occur: No concerns reported Coding Level of Care Code Est Pt Level 4 (24300) Diagnoses Controlled type 2 diabetes mellitus with diabetic polyneuropathy, without long- term current use of insulin E11.42 Diabetes mellitus keno terminal operator insulin use: without keno terminal operator use Diabetes mellitus complication status: with neurologic complications Diabetes mellitus complication detail: with polyneuropathy Mucopurulent chronic bronchitis J41.1 COPD type: chronic bronchitis Chronic bronchitis type: mucopurulent Gastroesophageal reflux disease without esophagitis K21.9 Esophagitis presence: without esophagitis Anxiety, generalized F41.1 Lipid disorder E78.9 Chronic major depressive disorder, recurrent episode F33.9 Vitamin D deficiency E55.9 Additional Codes ALETA-7 Assessment Billing - ALETA-7 Assessment Tool: ALETA-7 Assessment [id number] ([id number]) PHQ-9 - 97927 - PHQ-9 Billing: Yes ([id number]) Assessment & Plan Assessment & Plan (1) Diabetes type 2, controlled: Code(s): E11.9 - Type 2 diabetes mellitus without complications Category: Medical Qualifiers: Diabetes mellitus keno terminal operator insulin use: without usp use Diabetes mellitus complication status: with neurologic complications Diabetes mellitus complication detail: with polyneuropathy Qualified Code(s): E11.42 - Type 2 diabetes mellitus with diabetic polyneuropathy (2) COPD (chronic obstructive pulmonary disease): Code(s): J44.9 - Chronic obstructive pulmonary disease, unspecified Category: Medical Qualifiers: COPD type: chronic bronchitis Chronic bronchitis type: mucopurulent Qualified Code(s): J41.1 - Mucopurulent chronic bronchitis (3) GERD (gastroesophageal reflux disease): Code(s): K21.9 - Gastro-esophageal reflux disease without esophagitis Category: Medical Qualifiers: Esophagitis presence: without esophagitis Qualified Code(s): K21.9 - Gastro-esophageal reflux disease without esophagitis (4) Anxiety, generalized: Code(s): F41.1 - Generalized anxiety disorder Category: Medical (5) Lipid disorder: Code(s): E78.9 - Disorder of lipoprotein metabolism, unspecified Category: Medical (6) Chronic major depressive disorder, recurrent episode: Code(s): F33.9 - Major depressive disorder, recurrent, unspecified Category: Medical (7) Vitamin D deficiency: Code(s): E55.9 - Vitamin D deficiency, unspecified Category: Medical Plan - The patient is a 73-year-old female presenting for a regular follow-up appointment for chronic condition management. - Management of Type 2 Diabetes Mellitus is through endocrinology now recent A1c results showing good control at 6.1% in March. - For Hyperlipidemia, the patient is taking atorvastatin. - Hypertension is managed with lisinopril 5 mg, with no complications noted during this encounter. 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 - The patient does not report any new or ongoing concerns with her chronic conditions at this time. Depression and anxiety is stable patient is on sertraline 100 mg she is to continue that She is seeing Dr. Cueva for thyroid nodule and having yearly thyroid ultrasound Dr. Lomax for bladder disorder And Dr. Colin for COPD. Patient has stopped smoking 11 years ago . Patient had Cologuard done July of 2022, which was negative next 1 will be in Problem List - Type 2 Diabetes Mellitus - Hyperlipidemia - Hypertension - Osteoarthritis - depression/anxiety - bladder disorder - thyroid nodule - COPD Patient Instructions - Continue current medications as prescribed. - Undergo scheduled lab tests at the end of June as noted. - Stay warm and avoid going out in very cold weather to help manage arthritis symptoms. - Follow up in October as previously scheduled. - No immediate refills needed; contact the office if any changes or new prescriptions are required. Orders: Orders LDL Cholesterol Direct Today E11.42 - Type 2 diabetes mellitus with diabetic polyneuropathy, E55.9 - Vitamin D deficiency, unspecified, E78.9 - Disorder of lipoprotein metabolism, unspecified, F33.9 - Major depressive disorder, recurrent, unspecified, F41.1 - Generalized anxiety disorder, J41.1 - Muc opurulent chronic bronchitis, K21.9 - Gastro-esophageal reflux disease without esophagitis TSH reflex Free T4 Today E11.42 - Type 2 diabetes mellitus with diabetic polyneuropathy, E55.9 - Vitamin D deficiency, unspecified, E78.9 - Disorder of lipoprotein metabolism, unspecified, F33.9 - Major depressive disorder, recurrent, unspecified, F41.1 - Generalized anxiety disorder, J41.1 - Mucopurulent chronic bronchitis, K21.9 - Gastro-esophageal reflux disease without esophagitis Microalbumin, Random (w Creat) Today E11.42 - Type 2 diabetes mellitus with diabetic polyneuropathy, E55.9 - Vitamin D deficiency, unspecified, E78.9 - Disorder of lipoprotein metabolism, unspecified, F33.9 - Major depressive disorder, recurrent, unspecified, F41.1 - Generalized anxiety disorder, J41.1 - Mucopurulent chronic bronchitis, K21.9 - Gastro-esophageal reflux disease without esophagitis Complete Blood Count Auto Diff Today E11.42 - Type 2 diabetes mellitus with diabetic polyneuropathy, E55.9 - Vitamin D deficiency, unspecified, E78.9 - Disorder of lipoprotein metabolism, unspecified, F33.9 - Major depressive disorder, recurrent, unspecified, F41.1 - Generalized anxiety disorder, J41.1 - Mucopurulent chronic bronchitis, K21.9 - Gastro-esophageal reflux disease without esophagitis Comprehensive Met. Panel Today E11.42 - Type 2 diabetes mellitus with diabetic polyneuropathy, E55.9 - Vitamin D deficiency, unspecified, E78.9 - Disorder of lipoprotein metabolism, unspecified, F33.9 - Major depressive disorder, recurrent, unspecified, F41.1 - Generalized anxiety disorder, J41.1 - Mucopurulent chronic bronchitis, K21.9 - Gastro-esophageal reflux disease without esophagitis Hemoglobin A1c Today E11.42 - Type 2 diabetes mellitus with diabetic polyneuropathy, E55.9 - Vitamin D deficiency, unspecified, E78.9 - Disorder of lipoprotein metabolism, unspecified, F33.9 - Major depressive disorder, recurrent, unspecified, F41.1 - Generalized anxiety disorder, J41.1 - Mucopurulent chronic bronchitis, K21.9 - Gastro-esophageal reflux disease without esophagitis
[2024-04-30 10:40] VITALS: BP 132/78; PULSE 73; O2SAT 98; BMI 24.1
== END 2024-04-30 12:15 | disposition home or self-care (01) ==
PROVIDERS: PCP Internal Medicine; Visit Provider Internal Medicine
DX: E11.42 Type 2 diabetes mellitus with diabetic polyneuropathy (principal); J41.1 Mucopurulent chronic bronchitis; K21.9 Gastro-esophageal reflux disease without esophagitis; F41.1 Generalized anxiety disorder; E78.9 Disorder of lipoprotein metabolism, unspecified; F33.9 Major depressive disorder, recurrent, unspecified; E55.9 Vitamin D deficiency, unspecified

== ENCOUNTER → 2024-04-30 10:33 | Outpatient (BNVA) | payer OTHER, SELFPAY | PROVIDERS: PCP Internal Medicine; Visit Provider Internal Medicine | DX: E11.42 Type 2 diabetes mellitus with diabetic polyneuropathy (principal); J41.1 Mucopurulent chronic bronchitis; K21.9 Gastro-esophageal reflux disease without esophagitis; F41.1 Generalized anxiety disorder; E78.9 Disorder of lipoprotein metabolism, unspecified; F33.9 Major depressive disorder, recurrent, unspecified; E55.9 Vitamin D deficiency, unspecified | CPT/HCPCS: 96127; 99212 ==

== ENCOUNTER 2024-05-07 09:45 | Outpatient (AMB) | payer OTHER, SELFPAY ==
--- NOTE | 2024-05-07 09:46 | A.OFFVIS_ITS ---
Vital Signs 05/07/24 09:47 Height 5 ft 2 in Weight 133 lb 13.129 oz BMI 24.5 BP 110/52 L Blood Pressure Location Lt brachial Position Sitting Pulse 64 Pulse Source Pulse Oximeter Pulse Oximetry (%) 94 Oxygen Delivery Method Room Air Intake Visit Reasons: F/u- MNG Intake Note: Patient present today for MNG office visit. Financial Analysis Manager Required: No Accompanied by: Self / Same As Patient Allergies albuterol Allergy (Severe, Verified 05/07/24 09:50) panic attacks naproxen Allergy (Severe, Verified 05/07/24 09:50) rash fosamx Adverse Reaction (Uncoded 05/07/24 09:50) Diarrhea HPI Comments Details: 73 YO F with PMHx NTMNG who is seen in F/U for the same. She also sees Dr. Neff in our office for type 2 DM , last visit 03/11/24, Prior HPI She has a longstanding history of a NTMNG. Most of her nodules are subcentim eter, but she does have 1 spongiform nodule measuring 1.4 cm right mid and a left superior 1 cm TR4 nodule. She denies any symptoms of hyper or hypothyroidism. She denies any compressive symptoms currently. She denies any personal history of radiation to the head or the neck. She has a family history of thyroid cancer in her niece and sister . She has not had any biopsies of her nodules in the past. sister and neice : thyroid cancer Interval history 02/24/2024: Repeat ultrasound thyroid, I reviewed the images myself which showed a right mid subcentimeter spongiform nodule, a right inferior 1.5 cm mixed cystic solid, isoechoic nodule with punctate echogenic foci, TR 4 category, this is not been biopsied before and meets criteria for FNA. She also has a 1 cm lef t superior mixed cystic solid, isoechoic nodule which has mildly increased in size, we will continue to monitor this for now. She has a another subcentimeter left inferior spongiform nodule. Physical exam General: sitting comfortably in no acute distress HEENT: normocephalic/atraumatic, Neck: supple, palpable 1 cm right-sided nodule Cardiac: normal heart sounds Pulm: normal breath sounds B/L, no added breath sounds Abd: not distended, no tenderness Extremities: no edema, no signs of myxedema Laboratory Tests 05/23/23 09:29 TSH 1.16 Imaging US THYROID 02/24/24 CLINICAL INFORMATION: Nontoxic single thyroid nodule. COMPARISON: 02/26/2023, 01/29/2022. TECHNIQUE: Linear transducer grayscale and color Doppler examination with attention to the region of the thyroid. Exam submitted for review 04/15/2024 1:56 PM DIRECTOR REVENUE. FINDINGS: SIZE: Measurements of the thyroid lobes and nodules are given in sagittal, anteroposterior and transverse dimensions respectively. Right Thyroid Lobe: 4.6 x 1.3 x 1.4 cm, volume 4.4 mL. Parenchyma: The gland echotexture is homogeneous. Thyroid vascularity is mildly increased. Left Thyroid Lobe: 3.8 x 1.2 x 1.2 cm, volume 2.9 mL. Parenchyma: The gland echotexture is homogeneous. Thyroid vascularity is mildly increased. Isthmus: 0.3 cm in maximum AP dimension. Estimated total number of nodules greater than or equal to 1 cm: 2. Optical Model Maker And Tester nodules are described as follows: 1. Location: Right mid pole. Size: 0.6 x 0.4 x 0.5 cm, volume 0.07 mL. (Previously 0.15 mL) Nodule characteristics: Composition: Spongiform (0). ACR TI-RADS category: 1 2. Location: Right lower pole. Size: 1.5 x 0.7 x 0.9 cm, volume 0.54 mL. (Unchanged) Nodule characteristics: Composition: Mixed cystic and solid (1). Echogenicity: Isoechoic (1). Shape: Not taller than wide (0). Margins: Smooth (0). Echogenic Foci: Punctate echogenic foci (3). ACR TI-RADS total points: 5 ACR TI-RADS category: 4 3. Location: Right lower pole. Size: 0.7 x 0.3 x 0.7 cm, volume 0.07 mL. (Previously 0.15 mL) Nodule characteristics: Composition: Spongiform (0). ACR TI-RADS category: 1 4. Location: Left upper pole. Size: 1.0 x 0.8 x 0.8 cm, volume 0.36 mL. (Previously 0.24 mL) Nodule characteristics: Composition: Mixed cystic and solid (1). Echogenicity: Isoechoic (1). Shape: Not taller than wide (0). Margins: Smooth (0). Echogenic Foci: Punctate echogenic foci (3). ACR TI-RADS total points: 5 ACR TI-RADS category: 4 5. Location: Left lower pole. Size: 0.6 x 0.3 x 0.6 cm, volume 0.06 mL. (Unchanged) Nodule characteristics: Composition: Spongiform (0). ACR TI-RADS category: 1 NODES: No lymphadenopathy is seen in the tissue surrounding the thyroid gland. US/US thyroid IMPRESSION: 1. Multiple nodules as described, largest is a 1.5 cm right lower pole TR category 4 nodule. This is stable in size and morphology. FNA recommended if not already performed. 2. There is a 1.0 cm left upper pole TR category 4 nodule. This has minimally enlarged. Follow-up advised as per schedule below. 3. Remaining nodules are all unchanged, subcentimeter, and spongiform, and are thus benign. 4. Surrounding thyroid parenchyma is normal in appearance. US THYROID 03/01 CLINICAL INFORMATION: Nontoxic multinodular goiter. COMPARISON: Ultrasound soft tissue head/neck thyroid dated 01/29/2022 and 01/22/2021. TECHNIQUE: Linear transducer grayscale and color Doppler examination with attention to the region of the thyroid. FINDINGS: SIZE: Measurements of the thyroid lobes and nodules are given in sagittal, anteroposterior and transverse dimensions respectively. Right Thyroid Lobe: 5.0 x 1.4 x 1.4 cm, volume 5.2 mL. Previously 4.9 x 1.5 x 1.4 cm, volume 5.4 mL. Parenchyma: The gland echotexture is homogeneous. Thyroid vascularity is increased. Left Thyroid Lobe: 3.9 x 1.4 x 1.2 cm, volume 3.4 mL. Previously 4.2 x 1.2 x 1.2 cm, volume 3.0 mL. Parenchyma: The gland echotexture is homogeneous. Thyroid vascularity is increased. Isthmus: 0.35 cm in maximum AP dimension. Previously 0.39 cm. Estimated total number of nodules greater than or equal to 1 cm: 1. Optical Model Maker And Tester nodules are described as follows: 1. Location: Isthmus. Size: 0.36 x 0.26 x 0.42 cm, volume 0.02 mL. Previously: 0.52 x 0.25 x 0.39 cm, volume 0.03 mL. Nodule characteristics: Composition: Cystic(0). ACR TI-RADS total points: 0 Previous: 4 ACR TI-RADS category: 1 Previous: 4 Significant change in size (>/= 20% in 2 dimensions and minimal increase of 2 mm or 50% or greater increase in volume): No Change in features: Yes Change in ACR TI-RADS risk category: Yes 2. Location: Right inferior. Size: 0.94 x 0.49 x 0.64 cm, volume 0.15 mL. Previously: 0.60 x 0.37 x 0.56 cm, volume 0.07 mL. Nodule characteristics: Composition: Spongiform (0). Echogenicity: Anechoic (0). Shape: Not taller than wide (0). Margins: Smooth (0). Echogenic Foci: None (0). ACR TI-RADS total points: 0 Previous: 3 ACR TI-RADS category: 1 Previous: 3 Significant change in size (>/= 20% in 2 dimensions and minimal increase of 2 mm or 50% or greater increase in volume): Yes Change in features: No Change in ACR TI-RADS risk category: No 3. Location: Right inferior. Size: 1.5 x 0.72 x 0.82 cm, volume 0.50 mL. Previously: 1.4 x 0.71 x 0.82 cm, volume 0.42 mL. Nodule characteristics: Composition: Spongiform (0). Echogenicity: Anechoic (0). Shape: Not taller than wide (0). Margins: Smooth (0). Echogenic Foci: None (0). ACR TI-RADS total points: 0 Previous: 0 ACR TI-RADS category: 1 Previous: 1 Significant change in size (>/= 20% in 2 dimensions and minimal increase of 2 mm or 50% or greater increase in volume): No Change in features: No Change in ACR TI-RADS risk category: No 4. Location: Left superior. Size: 0.95 x 0.73 x 0.67 cm, volume 0.24 mL. Previously: 0.95 x 0.75 x 0.64 cm, volume 0.24 mL. Nodule characteristics: Composition: Mixed cystic and solid (1). Echogenicity: Hypoechoic (2). Shape: Not taller than wide (0). Margins: Smooth (0). Echogenic Foci: Punctate echogenic foci (3). ACR TI-RADS total points: 6 Previous: 6 ACR TI-RADS category: 4 Previous: 4 Significant change in size (>/= 20% in 2 dimensions and minimal increase of 2 mm or 50% or greater increase in volume): No Change in features: No Change in ACR TI-RADS risk category: No 5. Location: Left inferior. Size: 0.60 x 0.31 x 0.50 cm, volume 0.05 mL. Previously: Not seen on the previous study. Nodule characteristics: Composition: Spongiform (0). Echogenicity: Anechoic (0). Shape: Not taller than wide (0). Margins: Smooth (0). Echogenic Foci: None (0). ACR TI-RADS total points: 0 ACR TI-RADS category: 1 NODES: No lymphadenopathy is seen in the tissue surrounding the thyroid gland. US/US thyroid IMPRESSION: Stable left upper 1.0 cm TR 4 thyroid nodule. Continued surveillance recommended. [facility] Medical History Glaucoma Urgency incontinence Pulmonary nodules Cough Back pain Diabetic polyneuropathy associated with type 2 diabetes mellitus Depression GERD (gastroesophageal reflux disease) COPD (chronic obstructive pulmonary disease) Overweight (BMI 25.0-29.9) Dyslipidemia Vitamin D deficiency Non-toxic multinodular goiter Diabetes type 2, controlled Surgical History History of cataract surgery Hx of eye surgery Hx of cholecystectomy History of ganglion cyst Hx of hysterectomy Family History Father No problems noted. Mother Vulva cancer Maternal Uncle Diabetes mellitus Maternal Aunt Diabetes mellitus Social History Housing: House Alcohol intake: never Patient Tobacco Use Status: Former Tobacco user Tobacco use type: Cigarette Years Smoked: 40 years e-Cigarette/Vaping Use: Never Used service: No Current occupational status: retired Cognitive needs: No Hearing needs: No Vision needs: No Female Reproductive History Menstrual Age of Menarche: 15 Physical Exam Vital Signs: Last Vital Signs Pulse 64 05/07/24 09:47 BP 110/52 L 05/07/24 09:47 Pulse Ox 94 05/07/24 09:47 Oxygen Delivery Method Room Air 05/07/24 09:47 BMI result Body Mass Index 24.5 Assessment & Plan Assessment & Plan (1) Non-toxic multinodular goiter: Code(s): E04.2 - Nontoxic multinodular goiter Category: Medical Plan: [id number]-old female with a history of multinodular goiter and family history of thyroid cancer in 2 family members. Last TSH normal from May 2023. We will repeat TSH levels. 02/24/2024: Repeat ultrasound thyroid, I reviewed the images myself which showed a right mid subcentimeter spongiform nodule, a right inferior 1.5 cm mixed cystic solid, isoechoic nodule with punctate echogenic foci, TR 4 category, this is not been biopsied before and meets criteria for FNA. She also has a 1 cm left superior mixed cystic solid, isoechoic nodule which has mildly increased in size, we will continue to monitor this for now. She has a another subcentimeter left inferior spongiform nodule. She does not have any compressive symptoms. I explained that it is common to have thyroid nodules. About 95% of the time these nodules are benign. However if the nodule is > 1 cm in size or suspicious on ultrasound then a fine need aspiration biopsy is recommended. We discussed that a FNAB involves 4-5 passes with a small gauge needle and material obtained is sent off for cytology.If the cytopathology is benign then the nodule will be followed annually with repeat ultrasounds. However if it is suspicious or malignant, we will need to discuss further management. Indeterminate cytology can be further investigated with repeat FNA, genetic testing or empiric lobectomy. Malignant cytology is managed with either lobectomy or total thyroidectomy. We discussed briefly that thyroid cancer is, in most patients, an indolent disease that does not affect mortality. We will arrange for FNA of the right inferior 1.5 cm thyroid nodule at next available opening and patient will follow up with me in clinic thereafter for results and further decision making. Plan: -do TSH with reflex free T4 now -scheduled for FNA of the right inferior 1.5 cm thyroid nodule and a follow up 2 weeks after to discuss results Plan I spent 30 minutes in reviewing the record, seeing the patient and documenting in the medical record. Orders: Orders TSH reflex Free T4 Today E04.2 - Nontoxic multinodular goiter US biopsy thyroid Today E04.1 - Nontoxic single thyroid nodule Coding Level of Care Code Est Pt Level 4 (40207) Diagnoses Non-toxic multinodular goiter E04.2 Time Spent (min) 30
[2024-05-07 09:47] VITALS: BP 110/52; PULSE 64; O2SAT 94; BMI 24.5
== END 2024-05-07 10:16 | disposition home or self-care (01) ==
PROVIDERS: PCP Internal Medicine; Visit Provider Student in an Organized Health Care Education/Training Program
DX: E04.2 Nontoxic multinodular goiter (principal)
CPT/HCPCS: 99214

== ENCOUNTER 2024-05-07 09:45 | Outpatient (REF) | payer OTHER, SELFPAY ==
[2024-05-07 10:42] LABS: MANUAL DIFF FLAG NO
[2024-05-07 11:27] LABS: Basophils Absolute Auto 0.1 X10*3/uL (0.0-0.2); Eosinophils Absolute Auto 0.4 X10*3/uL (0.0-0.4); Eosinophils Percent Auto 4.1 % (0-4); Hematocrit 40.5 % (37.0-47.0); Hemoglobin 13.4 g/dl (12.0-16.0); Imm Gran Abs Auto 0.02 X10*3/uL (0.00-0.03); Imm Gran Pct Auto 0.2 % (0.0-0.4); Lymphocytes Absolute Auto 2.7 X10*3/uL (1.2-4.9); Lymphocytes Percent Auto 28.4 % (20-40); Mean Corpuscular HGB Conc 33.1 g/dl (31.0-35.0); Mean Corpuscular Hemoglobin 30.7 pg (27.0-33.0); Mean Corpuscular Volume 92.7 fL (80.0-98.0); Mean Platelet Volume 8.8 fL (9.4-12.3); Monocytes Absolute Auto 0.8 X10*3/uL (0.1-1.2); Monocytes Percent Auto 8.4 % (2-11); Neutrophils Absolute Auto 5.6 x10*3/uL (2.0-8.3); Neutrophils Percent Auto 57.9 % (45-73); Platelet Count 418 X10*3/uL (160-400); Red Blood Count 4.37 X10*6/uL (4.20-5.50); Red Cell Distribution Width 12.5 % (11.0-16.0); White Blood Count 9.6 X10*3/uL (4.8-10.8)
[2024-05-07 11:36] LABS: Estimated Average Glucose 128 mg/dL; Hemoglobin A1C 150.5142 umol/L; Hemoglobin A1c % 6.1 % (<6.0); Total Hemoglobin (HGBA1C) 3489.2398 umol/L
[2024-05-07 12:02] LABS: Alanine Aminotransferase 17 U/L (0-31); Albumin Level 4.3 g/dL (3.5-5.0); Alkaline Phosphatase 118 U/L (39-117); Anion Gap 10 (12-20); Aspartate Amino Transferase 22 U/L (5-31); Bilirubin Total 0.3 mg/dL (0.0-1.0); Blood Urea Nitrogen 16 mg/dL (9-16); Calcium 9.8 mg/dL (8.4-10.2); Carbon Dioxide 29 mmol/L (22-29); Chloride 104 mmol/L (96-108); Estimated Glomerular Filt Rate > 60; Glucose Random 77 mg/dL (60-115); Potassium 4.4 mmol/L (3.3-5.1); Sodium 139 mmol/L (135-145); Total Protein 7.3 g/dL (6.5-8.0)
[2024-05-07 12:14] LABS: TSH reflex Free T4 1.33 uIU/mL (0.32-4.0)
[2024-05-07 12:16] LABS: TSH reflex Free T4 1.34 uIU/mL (0.32-4.0)
[2024-05-07 12:33] LABS: Microalbum/Creatinine Ratio Ur 13.4 ug/mg cr (<30)
[2024-05-08 20:29] LABS: LDL Cholesterol Direct 68 mg/dL (<100)
== END 2024-05-07 09:46 | disposition home or self-care (01) ==
LOC: HO.LAB 09:45
PROVIDERS: PCP Internal Medicine; Visit Provider Student in an Organized Health Care Education/Training Program
DX: E04.2 Nontoxic multinodular goiter (principal); E55.9 Vitamin D deficiency, unspecified; E11.42 Type 2 diabetes mellitus with diabetic polyneuropathy; J41.1 Mucopurulent chronic bronchitis; K21.9 Gastro-esophageal reflux disease without esophagitis; F41.1 Generalized anxiety disorder; E78.9 Disorder of lipoprotein metabolism, unspecified; F33.9 Major depressive disorder, recurrent, unspecified
CPT/HCPCS: 36415; 80053; 82043; 82570; 83036; 83721; 84443; 85025; 99212

== ENCOUNTER 2024-05-10 10:55 | Outpatient (AMB) | payer OTHER, SELFPAY ==
--- NOTE | 2024-05-10 11:05 | A.OFFVIS_ITS ---
Intake Visit Reasons: Urge incontinence Intake Note: Patient is Present for incontinence Urology Medication: Vitamin B6, Tamsulosin Antibiotic Allergies: None Blood Thinners: Aspirin PVR: 0ml Allergies albuterol Allergy (Severe, Verified 05/10/24 11:38) panic attacks naproxen Allergy (Severe, Verified 05/10/24 11:38) rash fosamx Adverse Reaction (Uncoded 05/10/24 11:38) Diarrhea Medication List - Last Reconciled 05/10/24 by DARRYL GarP- aspirin 81 mg PO DAILY atorvastatin 80 mg PO DAILY 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 meter (OneTouch Verio Flex Meter) Use to check blood sugar BID prn cholecalciferol (vitamin D3) 25 mcg PO DAILY 90 days dorzolamide 2% 1 drp ophthalmic (eye) BID fluticasone propionate 220 mcg/actuation (Flovent HFA) 2 puffs inhalation BID lancets (OneTouch Delica Plus Lancet) Use to check blood sugar BID prn lancets (FreeStyle Lancets) As directed levalbuterol tartrate 45 mcg/actuation (Xopenex HFA) 1 puff inhalation Q4H PRN lisinopril 5 mg PO DAILY metformin ER 500 mg PO DAILY netarsudil-latanoprost 0.02-0.005 % (Rocklatan) 1 drp ophthalmic (eye) BEDTIME OneTouch Verio test strips (blood sugar diagnostic) Use to check blood sugar BID prn NS pyridoxine (vitamin B6) 100 mg PO DAILY 90 days roflumilast 500 mcg PO DAILY 90 days sertraline 100 mg PO DAILY 90 days tamsulosin 0.4 mg PO BEDTIME HPI Comments Details: Porsche is a very pleasant 73-year-old female patient of Dr. Cash. She has a past medical history of glaucoma, urge incontinence, pulmonary nodules, diabetic polyneuropathy associated with type 2 diabetes, depression, GERD, COPD, dyslipidemia, vitamin-D deficiency, and nontoxic multinodular goiter. She presents to the office today for stress/urge incontinence. She does discuss a longstanding history of nephrolithiasis and previously following up with Dr. Lomax. She reports symptoms of mixed urinary incontinence have been present for quite some time however feels they are worsening. She does have a previous history of 2 vaginal births of average size babies with uneventful labors. She reports utilizing 4-5 Renae pads per day however at times they are not always soiled. We discussed at length potential causes and treatment options for mixed urinary incontinence and risks and benefits of these interventions. She otherwise denies urinary urgency, urinary frequency, nocturia, hematuria, dysuria, foul smelling urine, changes to urinary stream, flank pain, fever, and or chills. We discussed obtaining retroperitoneal ultrasound for further assessment evaluation. In office urinalysis results reviewed with the patient today 1+ microscopic hematuria she does report a previous history of nicotine dependence for many years however quit 13 years ago. She does report to be smoking recreational marijuana daily. We discussed at length potential causes of microscopic hematuria as well as further workup in risks and benefits of these interventions. She otherwise offers no other issues or concerns at this time. PREVIOUS OFFICE NOTE: Nephrolithiasis They are here for - further evaluation for nephrolithiasis - concurrent osteoporosis in setting of diabetes Urolithiasis was diagnosed - May 2020 - symptoms back pain in May which stopped early JuneThe patient previously had kidney stones whose composition w - unknownLaboratory investigations include - no recent labs 24 Hour urine evaluation - none on file Prior treatment(s) include - 06/28 ESWL leftPrior imaging includes - May 2020 renal ultrasound 10 mm stone left UPJ, small right stone - 07/28 renal ultrasound no stones on left, 3 mm stone on right - 12/28 renal ultrasound 2 mm stones bilateral - 12/29 renal ultrasound bilateral 2-3 mm stones - 01/30 renal stones bilateral 4 mm multipleCurrent therapeutic plan will be - increased fluid intake - surveillance imaging - vitamin B6 [facility] Medical History Glaucoma Urgency incontinence Pulmonary nodules Cough Back pain Diabetic polyneuropathy associated with type 2 diabetes mellitus Depression GERD (gastroesophageal reflux disease) COPD (chronic obstructive pulmonary disease) Overweight (BMI 25.0-29.9) Dyslipidemia Vitamin D deficiency Non-toxic multinodular goiter Diabetes type 2, controlled Surgical History History of cataract surgery Hx of eye surgery Hx of cholecystectomy History of ganglion cyst Hx of hysterectomy Family History Father No problems noted. Mother Vulva cancer Maternal Uncle Diabetes mellitus Maternal Aunt Diabetes mellitus Social History Housing: House Alcohol intake: never Patient Tobacco Use Status: Former Tobacco user Tobacco use type: Cigarette Years Smoked: 40 years e-Cigarette/Vaping Use: Never Used service: No Current occupational status: retired Cognitive needs: No Hearing needs: No Vision needs: No Female Reproductive History Menstrual Age of Menarche: 15 Review of Systems Eyes Reports as per HPI ENT Reports as per HPI Card Reports as per HPI Resp Reports as per HPI GI Reports as per HPI Reports as per HPI Musc Reports as per HPI Neuro Reports no additional complaints Psych Reports as per HPI Endo Reports as per HPI Paulo/Lymph Reports no additional complaints Aller/Immun Reports no additional complaints Physical Exam Const General: cooperative, healthy appearing, comfortable, no acute distress, well developed, alert and awake Orientation/consciousness: patient oriented x3 Limitations: no limitations HEENT Head: Yes normal to inspection, Yes normocephalic and Yes atraumatic Ears: hearing grossly normal bilaterally Eyes General: appearance normal, both eyes and all related structures Neck Neck: Yes normal visual inspection and Yes trachea midline Chest Chest palpation & inspection: normal inspection of the chest Resp Effort & Inspection: normal respiratory effort and able to speak in complete sentences Cardio Rate: regular rate GI Inspection: Yes normal to inspection General: Yes no CVA tenderness Back/Spine/Pelvis Back: no CVA tenderness Skin General skin exam: no rashes or lesions noted Neuro General: patient oriented x3 Extrem General: Yes normal to inspection Psych Appearance: grossly normal and well kempt Mental Status: mental status grossly normal Speech and movement: Normal speech and movement present and Clear speech present Affect: normal affect Attitude: cooperative Thought process: Normal thought process present Thought content: Normal thought content present Insight: Fair insight present (Psych) Judgement: Fair judgement present (Psych) Office Procedures Post Void Residual Post Residual Void Post Void Residual (PVR): 0 [id number] Void Residual by ultrasound Results AMB Urinalysis, Automated UA Leukoctes 0 Rosalva/uL Last Edit by Deanna Tesfaye on 05/10/24 11:16 UA Nitrite Negative Last Edit by Deanna Tesfaye on 05/10/24 11:16 UA Urobilinogen 0.2 mg/dL Last Edit by Deanna Tesfaye on 05/10/24 11:16 UA Protein 0 mg/dL Last Edit by Deanna Lisaclem on 05/10/24 11:16 UA pH 6.0 Last Edit by Deanna Tesfaye on 05/10/24 11:16 UA Blood 25 Prasad/uL Last Edit by Deanna Tesfaye on 05/10/24 11:16 UA Specific Galien 1.015 Last Edit by Deanna Tesfaye on 05/10/24 11:16 UA Ketone Negative Last Edit by Deanna Tesfaye on 05/10/24 11:16 UA Bilirubin 0 mg/dL Last Edit by Deanna Tesfaye on 05/10/24 11:16 UA Glucose 0 mg/dL Last Edit by Deanna Tesfaye on 05/10/24 11:16 Results Reviewed Results Reviewed: Laboratory Last Values Urine pH (Auto) 6.0 05/10/24 11:12 Specific Galien (Auto) 1.015 05/10/24 11:12 Urine Protein (Auto) 0 mg/dL 05/10/24 11:12 Glucose (UA)(Auto) 0 mg/dL 05/10/24 11:12 Urine Ketones (Auto) Negative 05/10/24 11:12 Urine Blood (Auto) 25 Prasad/uL 05/10/24 11:12 Urine Nitrite (Auto) Negative 05/10/24 11:12 Urine Bilirubin (Auto) 0 mg/dL 05/10/24 11:12 Urine Urobilinogen (Auto) 0.2 mg/dL 05/10/24 11:12 Leukocyte Esterase (Auto) 0 Rosalva/uL 05/10/24 11:12 Assessment & Plan Assessment & Plan (1) Urgency incontinence: Code(s): N39.41 - Urge incontinence Category: Medical Plan In office urinalysis results reviewed with the patient today; as noted above; will send for urine cytology. PVR 0 mL. We discussed at length potential causes of mixed urinary incontinence and further treatment options and risks and benefits of these treatment options. Refer to pelvic floor therapy for further assessment evaluation. Will obtain retroperitoneal ultrasound for further assessment evaluation. We discussed microscopic hematuria as well as further workup in risks and benefits of these interventions. We discussed importance of adequate hydration relation to nephrolithiasis as well as overall health and well-being. Continue vitamin B6. Continue adding 1 oz of lemon juice to water daily. Follow-up in 1-3 months with imaging to be completed prior; or sooner with any issues, concerns, and or questions. Orders: Orders AMB Urinalysis Automated Today Z13.9 - Encounter for screening, unspecified Urine Cytology Today R31.21 - Asymptomatic microscopic hematuria PT Evaluation and Treatment Today N39.41 - Urge incontinence AMB Post Void Residual by ultrasound Today N39.41 - Urge incontinence US retroperitoneal comp Today N39.41 - Urge incontinence Patient Instructions: The patient had an opportunity to ask questions regarding the treatment plan. All questions were answered. Physical exam, labs, and imaging were discussed and reviewed in detail. As well as risks, benefits, and discussion of treatment choices. No major barriers to understanding were identified. The patient expressed understanding and agreement with the above treatment plan. The patient was made aware they should contact our office by phone for worsening of their current condition, the appearance of new symptoms, or with any questions or concerns. Compliance is encouraged with any medications and follow up testing that is ordered. It is a privilege to be allowed the opportunity to participate in? your urological care.? Again, if you have any questions or concerns If you have any questions or concerns please do not hesitate to contact me. The office is [phone]. This note is constructed using voice recognition software. While every effort has been made to ensure accuracy humanities professor errors may have been included. Yours sincerely, JEANNIE Gar Coding Level of Care Code Est Pt Level 3 (88539) Diagnoses Urgency incontinence N39.41 CPT Codes Post Residual Void - PVR CPT Code: 38725-Upwq Void Residual by ultrasound ([id number])
== END 2024-05-10 11:40 | disposition home or self-care (01) ==
PROVIDERS: PCP Internal Medicine; Visit Provider Nurse Practitioner Family
DX: N39.41 Urge incontinence (principal); Z13.9 Encounter for screening, unspecified
CPT/HCPCS: 99213

== ENCOUNTER 2024-05-10 10:55 | Outpatient (REF) | payer OTHER, SELFPAY ==
[2024-05-10 16:51] LABS: Urine Cytology See Pathology rpt
== END 2024-05-10 10:56 | disposition home or self-care (01) ==
LOC: HO.LNP 10:55
PROVIDERS: PCP Internal Medicine; Visit Provider Nurse Practitioner Family
DX: R31.21 Asymptomatic microscopic hematuria (principal); N39.41 Urge incontinence
CPT/HCPCS: 51798; 81003; 88112; 99212

== ENCOUNTER 2024-05-26 09:58 | Outpatient (REF) | payer OTHER, SELFPAY ==
--- NOTE | 2024-05-26 10:30 | PCN2_ITS ---
Brief Operative Note Date of procedure: 05/26/24 Pre-op diagnosis: right lower 1.5 cm thyroid nodule FNA biopsy Post-op diagnosis: same Procedure: THYROID FINE NEEDLE ASPIRATION PROCEDURE NOTE ? PROCEDURE PERFORMED: Ultrasound-guided FNA of thyroid nodule ? OPERATORS: Dr. Mary Kahn ? INDICATION: right lower 1.5 cm thyroid nodule ; FNA performed to assess for malignancy ? DESCRIPTION OF PROCEDURE: The indications for FNA (to assess for malignancy) were reviewed with the patient in detail. Potential complications (e.g., bleeding, infection, damage to local structures, absence of clear diagnosis after FNA) were reviewed. Alternatives to FNA including conservative observation or surgery were described. The patient understood and agreed to proceed. This was documented by the signing of the written informed consent form. A time-out was performed to confirm the patient's identity and the site of planned FNA. The nodule of interest was identified using ultrasound (14 MHz linear array probe). The site of FNA was then draped in the usual fashion and carefully cleaned and prepared using alcohol swabs. The skin at the previously-identified site of needle insertion was iced and sprayed with numbing spray. Under ultrasound guidance, _4_ passes were performed using a 1.5-inch, 25-gauge needle, and sample was obtained via capillary action. The needle tip was clearly visualized to be within the nodule at the time of sampling for _3_ of _4_ passes [Insert image recorded as part of the procedure] The patient tolerated the procedure well. There were no immediate complications. A small adhesive bandage was applied, and the patient was advised to take hussain taminophen (rather than NSAIDs) for any discomfort and to report any signs of inflammation/infection or marked swelling. IMPRESSION: Technically successful ultrasound-guided fine needle aspiration of right lower 1.5 cm thyroid nodule. PLAN: The patient was advised that I will provide follow-up regarding the cytology result and any subsequent plans. Mary Kahn MD Endocrinology Attending Condition: stable Disposition: same day
== END 2024-05-26 09:59 | disposition home or self-care (01) ==
LOC: HO.US 09:58
PROVIDERS: PCP Internal Medicine; Visit Provider Student in an Organized Health Care Education/Training Program
DX: E04.1 Nontoxic single thyroid nodule (principal)
CPT/HCPCS: 10005; 88173; 88305

== ENCOUNTER → 2024-05-26 09:58 | Outpatient (BNV) | payer OTHER, SELFPAY | PROVIDERS: PCP Internal Medicine; Visit Provider Student in an Organized Health Care Education/Training Program | DX: E04.1 Nontoxic single thyroid nodule (principal) | CPT/HCPCS: 10005 ==

== ENCOUNTER 2024-06-09 14:02 | Outpatient (AMB) | payer OTHER, SELFPAY ==
[2024-06-09 14:07] VITALS: BP 148/66; PULSE 78; O2SAT 98; BMI 24.2
--- NOTE | 2024-06-09 14:07 | MHC.OFFVIS ---
Vital Signs 06/09/24 14:07 Height 5 ft 2 in Weight 132 lb 4.438 oz BMI 24.2 BP 148/66 H Blood Pressure Location Lt brachial Position Sitting Pulse 78 Pulse Source Pulse Oximeter Pulse Oximetry (%) 98 Oxygen Delivery Method Room Air Intake Visit Reasons: Biopsy f/u Intake Note: Patient present here today to go over Thyroid Biopsy Results: Application Integration Engineer Required: No Accompanied by: Self / Same As Patient Allergies albuterol Allergy (Severe, Verified 05/10/24 11:38) panic attacks naproxen Allergy (Severe, Verified 05/10/24 11:38) rash fosamx Adverse Reaction (Uncoded 05/10/24 11:38) Diarrhea Medication List - Last Reconciled 06/09/24 by Mary Kahn MD aspirin 81 mg PO DAILY atorvastatin 80 mg PO DAILY 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 meter (OneTouch Verio Flex Meter) Use to check blood sugar BID prn cholecalciferol (vitamin D3) 25 mcg PO DAILY 90 days dorzolamide 2% 1 drp ophthalmic (eye) BID fluticasone propionate 220 mcg/actuation (Flovent HFA) 2 puffs inhalation BID lancets (OneTouch Delica Plus Lancet) Use to check blood sugar BID prn lancets (FreeStyle Lancets) As directed levalbuterol tartrate 45 mcg/actuation (Xopenex HFA) 1 puff inhalation Q4H PRN lisinopril 5 mg PO DAILY metformin ER 500 mg PO DAILY netarsudil-latanoprost 0.02-0.005 % ([facility]) 1 drp ophthalmic (eye) BEDTIME OneTouch Verio test strips (blood sugar diagnostic) Use to check blood sugar BID prn NS pyridoxine (vitamin B6) 100 mg PO DAILY 90 days roflumilast 500 mcg PO DAILY 90 days sertraline 100 mg PO DAILY 90 days tamsulosin 0.4 mg PO BEDTIME HPI Comments Details: 73 YO F with PMHx NTMNG who is seen in F/U for the same. She also sees Dr. Neff in our office for type 2 DM , last visit 03/11/24, Prior HPI She has a longstanding history of a NTMNG. She denies any symptoms of hyper or hypothyroidism. She denies any compressive symptoms currently. She denies any personal history of radiation to the head or the neck. She has a family history of thyroid cancer in her niece and sister . She has not had any biopsies of her nodules in the past. sister and neice : thyroid cancer 02/24/2024: Repeat ultrasound thyroid, I reviewed the images myself which showed a right mid subcentimeter spongiform nodule, a right inferior 1.5 cm mixed cystic solid, isoechoic nodule with punctate echogenic foci, TR 4 category, this is not been biopsied before and meets criteria for FNA. She also has a 1 cm left superior mixed cystic solid, isoechoic nodule which has mildly increased in size, we will continue to monitor this for now. She has a another subcentimeter left inferior spongiform nodule. Interval history 05/26/2024: Underwent FNA biopsy of the right inferior 1.5 cm nodule which came back as benign, [place] category 2. Physical exam General: sitting comfortably in no acute distress HEENT: normocephalic/atraumatic, Neck: supple, palpable 1 cm right-sided nodule Cardiac: normal heart sounds Pulm: normal breath sounds B/L, no added breath sounds Abd: not distended, no tenderness Extremities: no edema, no signs of myxedema Laboratory Tests 05/23/23 09:29 TSH 1.16 Laboratory Tests 05/23/23 05/07/24 09:29 10:37 TSH 1.16 1.33 Imaging US THYROID 02/24/24 CLINICAL INFORMATION: Nontoxic single thyroid nodule. COMPARISON: 02/26/2023, 01/29/2022. TECHNIQUE: Linear transducer grayscale and color Doppler examination with attention to the region of the thyroid. Exam submitted for review 04/15/2024 1:56 PM GUEST HOUSE MANAGER. FINDINGS: SIZE: Measurements of the thyroid lobes and nodules are given in sagittal, anteroposterior and transverse dimensions respectively. Right Thyroid Lobe: 4.6 x 1.3 x 1.4 cm, volume 4.4 mL. Parenchyma: The gland echotexture is homogeneous. Thyroid vascularity is mildly increased. Left Thyroid Lobe: 3.8 x 1.2 x 1.2 cm, volume 2.9 mL. Parenchyma: The gland echotexture is homogeneous. Thyroid vascularity is mildly increased. Isthmus: 0.3 cm in maximum AP dimension. Estimated total number of nodules greater than or equal to 1 cm: 2. Electrical Controls Engineer nodules are described as follows: 1. Location: Right mid pole. Size: 0.6 x 0.4 x 0.5 cm, volume 0.07 mL. (Previously 0.15 mL) Nodule characteristics: Composition: Spongiform (0). ACR TI-RADS category: 1 2. Location: Right lower pole. Size: 1.5 x 0.7 x 0.9 cm, volume 0.54 mL. (Unchanged) Nodule characteristics: Composition: Mixed cystic and solid (1). Echogenicity: Isoechoic (1). Shape: Not taller than wide (0). Margins: Smooth (0). Echogenic Foci: Punctate echogenic foci (3). ACR TI-RADS total points: 5 ACR TI-RADS category: 4 3. Location: Right lower pole. Size: 0.7 x 0.3 x 0.7 cm, volume 0.07 mL. (Previously 0.15 mL) Nodule characteristics: Composition: Spongiform (0). ACR TI-RADS category: 1 4. Location: Left upper pole. Size: 1.0 x 0.8 x 0.8 cm, volume 0.36 mL. (Previously 0.24 mL) Nodule characteristics: Composition: Mixed cystic and solid (1). Echogenicity: Isoechoic (1). Shape: Not taller than wide (0). Margins: Smooth (0). Echogenic Foci: Punctate echogenic foci (3). ACR TI-RADS total points: 5 ACR TI-RADS category: 4 5. Location: Left lower pole. Size: 0.6 x 0.3 x 0.6 cm, volume 0.06 mL. (Unchanged) Nodule characteristics: Composition: Spongiform (0). ACR TI-RADS category: 1 NODES: No lymphadenopathy is seen in the tissue surrounding the thyroid gland. US/US thyroid IMPRESSION: 1. Multiple nodules as described, largest is a 1.5 cm right lower pole TR category 4 nodule. This is stable in size and morphology. FNA recommended if not already performed. 2. There is a 1.0 cm left upper pole TR category 4 nodule. This has minimally enlarged. Follow-up advised as per schedule below. 3. Remaining nodules are all unchanged, subcentimeter, and spongiform, and are thus benign. 4. Surrounding thyroid parenchyma is normal in appearance. US THYROID 03/01 CLINICAL INFORMATION: Nontoxic multinodular goiter. COMPARISON: Ultrasound soft tissue head/neck thyroid dated 01/29/2022 and 01/22/2021. TECHNIQUE: Linear transducer grayscale and color Doppler examination with attention to the region of the thyroid. FINDINGS: SIZE: Measurements of the thyroid lobes and nodules are given in sagittal, anteroposterior and transverse dimensions respectively. Right Thyroid Lobe: 5.0 x 1.4 x 1.4 cm, volume 5.2 mL. Previously 4.9 x 1.5 x 1.4 cm, volume 5.4 mL. Parenchyma: The gland echotexture is homogeneous. Thyroid vascularity is increased. Left Thyroid Lobe: 3.9 x 1.4 x 1.2 cm, volume 3.4 mL. Previously 4.2 x 1.2 x 1.2 cm, volume 3.0 mL. Parenchyma: The gland echotexture is homogeneous. Thyroid vascularity is increased. Isthmus: 0.35 cm in maximum AP dimension. Previously 0.39 cm. Estimated total number of nodules greater than or equal to 1 cm: 1. Electrical Controls Engineer nodules are described as follows: 1. Location: Isthmus. Size: 0.36 x 0.26 x 0.42 cm, volume 0.02 mL. Previously: 0.52 x 0.25 x 0.39 cm, volume 0.03 mL. Nodule characteristics: Composition: Cystic(0). ACR TI-RADS total points: 0 Previous: 4 ACR TI-RADS category: 1 Previous: 4 Significant change in size (>/= 20% in 2 dimensions and minimal increase of 2 mm or 50% or greater increase in volume): No Change in features: Yes Change in ACR TI-RADS risk category: Yes 2. Location: Right inferior. Size: 0.94 x 0.49 x 0.64 cm, volume 0.15 mL. Previously: 0.60 x 0.37 x 0.56 cm, volume 0.07 mL. Nodule characteristics: Composition: Spongiform (0). Echogenicity: Anechoic (0). Shape: Not taller than wide (0). Margins: Smooth (0). Echogenic Foci: None (0). ACR TI-RADS total points: 0 Previous: 3 ACR TI-RADS category: 1 Previous: 3 Significant change in size (>/= 20% in 2 dimensions and minimal increase of 2 mm or 50% or greater increase in volume): Yes Change in features: No Change in ACR TI-RADS risk category: No 3. Location: Right inferior. Size: 1.5 x 0.72 x 0.82 cm, volume 0.50 mL. Previously: 1.4 x 0.71 x 0.82 cm, volume 0.42 mL. Nodule characteristics: Composition: Spongiform (0). Echogenicity: Anechoic (0). Shape: Not taller than wide (0). Margins: Smooth (0). Echogenic Foci: None (0). ACR TI-RADS total points: 0 Previous: 0 ACR TI-RADS category: 1 Previous: 1 Significant change in size (>/= 20% in 2 dimensions and minimal increase of 2 mm or 50% or greater increase in volume): No Change in features: No Change in ACR TI-RADS risk category: No 4. Location: Left superior. Size: 0.95 x 0.73 x 0.67 cm, volume 0.24 mL. Previously: 0.95 x 0.75 x 0.64 cm, volume 0.24 mL. Nodule characteristics: Composition: Mixed cystic and solid (1). Echogenicity: Hypoechoic (2). Shape: Not taller than wide (0). Margins: Smooth (0). Echogenic Foci: Punctate echogenic foci (3). ACR TI-RADS total points: 6 Previous: 6 ACR TI-RADS category: 4 Previous: 4 Significant change in size (>/= 20% in 2 dimensions and minimal increase of 2 mm or 50% or greater increase in volume): No Change in features: No Change in ACR TI-RADS risk category: No 5. Location: Left inferior. Size: 0.60 x 0.31 x 0.50 cm, volume 0.05 mL. Previously: Not seen on the previous study. Nodule characteristics: Composition: Spongiform (0). Echogenicity: Anechoic (0). Shape: Not taller than wide (0). Margins: Smooth (0). Echogenic Foci: None (0). ACR TI-RADS total points: 0 ACR TI-RADS category: 1 NODES: No lymphadenopathy is seen in the tissue surrounding the thyroid gland. US/US thyroid IMPRESSION: Stable left upper 1.0 cm TR 4 thyroid nodule. Continued surveillance recommended. [facility] Medical History (Updated 05/13/24 @ 14:09 by TOMEKA Gar) Glaucoma Urgency incontinence Pulmonary nodules Cough Back pain Diabetic polyneuropathy associated with type 2 diabetes mellitus Depression GERD (gastroesophageal reflux disease) COPD (chronic obstructive pulmonary disease) Overweight (BMI 25.0-29.9) Dyslipidemia Vitamin D deficiency Non-toxic multinodular goiter Diabetes type 2, controlled Surgical History (Updated 06/09/24 @ 14:19 by Elmer Mcgowan Jyoti) Hx of ultrasound guided needle biopsy History of cataract surgery Hx of eye surgery Hx of cholecystectomy History of ganglion cyst Hx of hysterectomy Family History Father No problems noted. Mother Vulva cancer Maternal Uncle Diabetes mellitus Maternal Aunt Diabetes mellitus Social History Housing: House Alcohol intake: never Patient Tobacco Use Status: Former Tobacco user Tobacco use type: Cigarette Years Smoked: 40 years e-Cigarette/Vaping Use: Never Used service: No Current occupational status: retired Cognitive needs: No Hearing needs: No Vision needs: No Female Reproductive History Menstrual Age of Menarche: 15 Physical Exam Vital Signs: BMI result Body Mass Index 24.2 Assessment & Plan Assessment & Plan (1) Non-toxic multinodular goiter: Code(s): E04.2 - Nontoxic multinodular goiter Category: Medical Plan: Fjhvqcl-sqd-tuoc-old female with a history of multinodular goiter and family history of thyroid cancer in 2 family members. Last TSH normal from May 2023. We will repeat TSH levels. 02/24/2024: Repeat ultrasound thyroid, I reviewed the images myself which showed a right mid subcentimeter spongiform nodule, a right inferior 1.5 cm mixed cystic solid, isoechoic nodule with punctate echogenic foci, TR 4 category, this is not been biopsied before and meets criteria for FNA. She also has a 1 cm left superior mixed cystic solid, isoechoic nodule which has mildly increased in size, we will continue to monitor this for now. She has a another subcentimeter left inferior spongiform nodule. She does not have any compressive symptoms. 05/26/2024: Underwent FNA biopsy of the right inferior 1.5 cm nodule which came back as benign, [place] category 2. Normal TSH from May 2024. I discussed with the patient that benign results me less than 3% chance of malignancy. At this point we will plan to repeat an ultrasound in 1 year in May 2025 with follow up in June 2025. Plan: -do ultrasound of the thyroid in May 2025 -do TSH with reflex free T4 in May 2025 -follow up in June 2025 Plan See above Orders: Orders US thyroid 05/10/25 E04.2 - Nontoxic multinodular goiter TSH reflex Free T4 05/10/25 E04.2 - Nontoxic multinodular goiter Patient Instructions: do ultrasound of the thyroid in May 2025, someone will call you to schedule this -do TSH with reflex free T4 in May 2025 -follow up in June 2025 Coding Level of Care Code Est Pt Level 3 (21932) Diagnoses Non-toxic multinodular goiter E04.2
== END 2024-06-09 14:26 | disposition home or self-care (01) ==
LOC: HO.ENCR 14:03
PROVIDERS: PCP Internal Medicine; Visit Provider Student in an Organized Health Care Education/Training Program
DX: E04.2 Nontoxic multinodular goiter (principal)
CPT/HCPCS: 99213

== ENCOUNTER → 2024-06-09 14:02 | Outpatient (BNVA) | payer OTHER, SELFPAY | PROVIDERS: PCP Internal Medicine; Visit Provider Student in an Organized Health Care Education/Training Program | DX: E04.2 Nontoxic multinodular goiter (principal) | CPT/HCPCS: 99212 ==

== ENCOUNTER 2024-06-16 11:13 | Outpatient (AMB) | payer OTHER, SELFPAY ==
--- NOTE | 2024-06-16 11:23 | A.OFFVIS_ITS ---
Vital Signs 06/16/24 11:24 Height 5 ft 2 in Weight 136 lb 10.986 oz BMI 25.0 BP 100/72 Blood Pressure Location Rt brachial Position Sitting Pulse 98 Pulse Source Pulse Oximeter Pulse Oximetry (%) 96 Oxygen Delivery Method Room Air Intake Visit Reasons: DM Intake Note: Patient presents today for a follow-up on Type 2 Diabetes Mellitus: Last Diabetic eye exam was on: 05/10/2024, [facility] Last Podiatry exam was on: Does not see a Service Or Work Dispatcher Most recent HbA1c: 6.1%, 05/07/2024 Random Glucose- 101 mg/dL, Today Drafting Clerk Required: No Accompanied by: Self / Same As Patient Allergies albuterol Allergy (Severe, Verified 05/10/24 11:38) panic attacks naproxen Allergy (Severe, Verified 05/10/24 11:38) rash fosamx Adverse Reaction (Uncoded 05/10/24 11:38) Diarrhea Medication List - Last Reconciled 06/16/24 by Mira Landa MD aspirin 81 mg PO DAILY atorvastatin 80 mg PO DAILY 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 meter (OneTouch Verio Flex Meter) Use to check blood sugar BID prn cholecalciferol (vitamin D3) 25 mcg PO DAILY 90 days Dexcom G7 Rn Vascular (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,direct care counselor,cont) As directed NS Dexcom G7 Sensor (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 sensor) every 10 days NS dorzolamide 2% 1 drp ophthalmic (eye) BID fluticasone propionate 220 mcg/actuation (Flovent HFA) 2 puffs inhalation BID lancets (SaiseiTouch Delica Plus Lancet) Use to check blood sugar BID prn lancets (FreeStyle Lancets) As directed levalbuterol tartrate 45 mcg/actuation (Xopenex HFA) 1 puff inhalation Q4H PRN lisinopril 5 mg PO DAILY metformin ER 500 mg PO DAILY netarsudil-latanoprost 0.02-0.005 % ([facility]) 1 drp ophthalmic (eye) BEDTIME OneTouch Verio test strips (blood sugar diagnostic) Use to check blood sugar BID prn NS pyridoxine (vitamin B6) 100 mg PO DAILY 90 days roflumilast 500 mcg PO DAILY 90 days sertraline 100 mg PO DAILY 90 days tamsulosin 0.4 mg PO BEDTIME HPI Comments Details: 73 YO F with PMHx NTMNG & type 2 diabetes presenting for diabetes follow up Diabetes: On metformin 500mg once daily (decreased from twice daily in november and from 1000mg in Mar). Last A1C Apr 6.1%. Compliant with medications. Has lost 50 pounds since initial diagnosis. Monitoring glucose with OneTouch Verio-average glucose 120-155 with average of 138. No interval lows No hypoglycemia Micro/macrovascular complications: Ophtho, neuropathy/RLS Thyroid: Following with Dr Kahn She has a longstanding history of a NTMNG-recent thryoid FNA benign ROS CONSTITUTIONAL: Denies weight loss, fever and chills. HEENT: Denies changes in vision and hearing. RESPIRATORY: Denies SOB and cough. CV: Denies palpitations and CP GI: Denies abdominal pain, nausea, vomiting and diarrhea. : Denies dysuria and urinary frequency. MSK: Denies new myalgia and joint pain. SKIN: Denies rash and pruritus. NEUROLOGICAL: Denies headache PSYCHIATRIC: Denies recent changes in mood. PHYSICAL EXAM: GENERAL: Alert and oriented x 3. NAD EYES: EOMI. Anicteric. HENT: Moist mucous membranes. No scleral icterus. Heterogenous thyroid. No cervical lymphadenopathy. LUNGS: Clear to auscultation bilaterally. CARDIOVASCULAR: Regular rate and rhythm. No murmur. No JVD. ABDOMEN: Soft, non-tender +bs EXTREMITIES: No edema. Non-tender. SKIN: No rashes or lesions. Warm. NEUROLOGIC: No focal neurological deficits. CN II-XII grossly intact PSYCHIATRIC: Cooperative. Appropriate mood and affect ? [facility] Medical History Glaucoma Urgency incontinence Pulmonary nodules Cough Back pain Diabetic polyneuropathy associated with type 2 diabetes mellitus Depression GERD (gastroesophageal reflux disease) COPD (chronic obstructive pulmonary disease) Overweight (BMI 25.0-29.9) Dyslipidemia Vitamin D deficiency Non-toxic multinodular goiter Diabetes type 2, controlled Surgical History Hx of ultrasound guided needle biopsy History of cataract surgery Hx of eye surgery Hx of cholecystectomy History of ganglion cyst Hx of hysterectomy Family History Father No problems noted. Mother Vulva cancer Maternal Uncle Diabetes mellitus Maternal Aunt Diabetes mellitus Social History Housing: House Alcohol intake: never Patient Tobacco Use Status: Former Tobacco user Tobacco use type: Cigarette Years Smoked: 40 years e-Cigarette/Vaping Use: Never Used service: No Current occupational status: retired Cognitive needs: No Hearing needs: No Vision needs: No Female Reproductive History Menstrual Age of Menarche: 15 Physical Exam Vital Signs: Last Vital Signs Pulse 98 06/16/24 11:24 BP 100/72 06/16/24 11:24 Pulse Ox 96 06/16/24 11:24 Oxygen Delivery Method Room Air 06/16/24 11:24 BMI result Body Mass Index 25.0 Assessment & Plan Assessment & Plan (1) Diabetic polyneuropathy associated with type 2 diabetes mellitus: Code(s): E11.42 - Type 2 diabetes mellitus with diabetic polyneuropathy Category: Medical Plan: Well controlled type 2 diabetes Will continue her on metformin 500mg daily. No hypoglycemia continue annual eye exams Treat hypoglycemia rules of 15s Return in 3 months or sooner as needed Medications: New Dexcom G7 Rn Vascular (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,direct care counselor,cont) As directed 1 ea 0RF NS E11.42 - Type 2 diabetes mellitus with diabetic polyneuropathy Dexcom G7 Sensor (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 sensor) every 10 days 9 ea 0RF NS E11.42 - Type 2 diabetes mellitus with diabetic polyneuropathy Coding Level of Care Code Est Pt Level 4 (02708) Diagnoses Diabetic polyneuropathy associated with type 2 diabetes mellitus E11.42
[2024-06-16 11:24] VITALS: BP 100/72; PULSE 98; O2SAT 96; BMI 25.0
[2024-06-16 11:35] LABS: Glucose, Whole Blood 101 mg/dL (60-115)
== END 2024-06-16 11:51 | disposition home or self-care (01) ==
LOC: HO.ENCR 11:14
PROVIDERS: PCP Internal Medicine; Visit Provider Internal Medicine
DX: E11.42 Type 2 diabetes mellitus with diabetic polyneuropathy (principal)

== ENCOUNTER → 2024-06-16 11:13 | Outpatient (BNVA) | payer OTHER, SELFPAY | PROVIDERS: PCP Internal Medicine; Visit Provider Internal Medicine | DX: E11.42 Type 2 diabetes mellitus with diabetic polyneuropathy (principal) | CPT/HCPCS: 82947; 99212 ==

== ENCOUNTER 2024-07-07 09:11 | Outpatient (REF) | payer OTHER, SELFPAY ==
--- NOTE | ~2024-07-07 | CT_ITS ---
CLINICAL HISTORY: R31.21 - Asymptomatic microscopic hematuria CT abdomen and pelvis with and without contrast Comparison: None Findings: Centrilobular emphysema seen in the right lower lobe. The patient is status post cholecystectomy. The liver is otherwise unremarkable. There is a benign-appearing parapelvic cyst lower pole left kidney. There is a nonobstructing calculus in the midpole of the left kidney. There are bilateral extra renal pelves. There is left adrenal hyperplasia. The rest of the solid organs are unremarkable. No bowel obstruction, pneumoperitoneum, or pneumatosis. The patient is status post hysterectomy. There is colonic diverticulosis without evidence of diverticulitis. The appendix is not identified. There is no evidence of appendicitis. The urinary bladder is normal No acute fracture. There is degenerative disc disease at L4-5 and L5-S1 associated with facet arthropathy and left-sided spondylolysis at L5-S1. The rest of the GI tract is unremarkable. IMPRESSION: 1. Small nonobstructive calculus midpole left kidney. 2. Benign cyst lower pole left kidney. 3. Colonic diverticulosis without evidence of diverticulitis. 4. Left adrenal hyperplasia. This document has been electronically signed by: Chucky Chirinos MD on 07/08/2024 09:36:07
[2024-07-07] MEDS: iohexoL 350 MG/ML 100 ML INFUS..BTL IV (10:19)
[2024-07-07 11:27] LABS: Creatinine POC 0.9 mg/dL (0.5-1.4); GFR POC > 60
== END 2024-07-07 09:12 | disposition home or self-care (01) ==
LOC: HO.CT 09:11
PROVIDERS: PCP Internal Medicine; Visit Provider Nurse Practitioner Family
DX: R31.21 Asymptomatic microscopic hematuria (principal); Z87.891 Personal history of nicotine dependence
CPT/HCPCS: 74178; 82565; Q9967

== ENCOUNTER → 2024-07-07 09:13 | Outpatient (BNV) | payer OTHER, SELFPAY | PROVIDERS: PCP Internal Medicine; Visit Provider Radiology Diagnostic Radiology | DX: N20.0 Calculus of kidney (principal); N28.1 Cyst of kidney, acquired; K57.30 Diverticulosis of large intestine without perforation or abscess without bleeding; E27.8 Other specified disorders of adrenal gland | CPT/HCPCS: 74178 ==

== ENCOUNTER 2024-08-10 14:29 | Outpatient (AMB) | payer OTHER, SELFPAY ==
--- NOTE | 2024-08-10 14:29 | MHC.OFFVIS ---
Intake Visit Reasons: 1m/follow up CT Scan(set) Allergies albuterol Allergy (Severe, Verified 05/10/24 11:38) panic attacks naproxen Allergy (Severe, Verified 05/10/24 11:38) rash fosamx Adverse Reaction (Uncoded 05/10/24 11:38) Diarrhea Medication List - Last Reconciled 08/11/24 by DARRYL GarP- aspirin 81 mg PO DAILY atorvastatin 80 mg PO DAILY 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 meter (FlowPayTouch Verio Flex Meter) Use to check blood sugar BID prn cholecalciferol (vitamin D3) 25 mcg PO DAILY 90 days Dexcom G7 Professor Of Literacy (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,conventional machinist,cont) As directed NS Dexcom G7 Sensor (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 sensor) every 10 days NS dorzolamide 2% 1 drp ophthalmic (eye) BID fluticasone propionate 220 mcg/actuation (Flovent HFA) 2 puffs inhalation BID lancets (FlowPayTouch Delica Plus Lancet) Use to check blood sugar BID prn lancets (FreeStyle Lancets) As directed levalbuterol tartrate 45 mcg/actuation (Xopenex HFA) 1 puff inhalation Q4H PRN lisinopril 5 mg PO DAILY metformin ER 500 mg PO DAILY netarsudil-latanoprost 0.02-0.005 % [facility]) 1 drp ophthalmic (eye) BEDTIME OneTouch Verio test strips (blood sugar diagnostic) Use to check blood sugar BID prn NS pyridoxine (vitamin B6) 100 mg PO DAILY 90 days roflumilast 500 mcg PO DAILY 90 days sertraline 100 mg PO DAILY 90 days tamsulosin 0.4 mg PO BEDTIME HPI Comments Details: Porsche is a very pleasant 74-year-old female patient of Dr. Cash. She has a past medical history of glaucoma, urge incontinence, pulmonary nodules, diabetic polyneuropathy associated with type 2 diabetes, depression, GERD, COPD, dyslipidemia, vitamin-D deficiency, and nontoxic multinodular goiter. She is being followed up on today via telehealth for her stress/urge incontinence, microscopic hematuria, and nephrolithiasis. Recent CT urogram results were reviewed with the patient today. 08/01 small nonobstructing calculus mid pole left kidney. Benign left lower pole cyst. No hydronephrosis noted bilaterally. The urinary bladder is normal per radiology report. Urine cytology 06/01 Atypical urothelial cells. She discusses having received a call from physical therapy and will be initiating pelvic floor therapy within the next 2 weeks. She does have a previous history of 2 vaginal births of average size babies with uneventful labors. She continues utilizing 4-5 Renae pads per day however at times they are not always soiled. We discussed at length potential causes and treatment options for mixed urinary incontinence and risks and benefits of these interventions. She otherwise denies urinary urgency, urinary frequency, nocturia, hematuria, dysuria, foul smelling urine, changes to urinary stream, flank pain, fever, and or chills. She has a previous history of nicotine dependence for many years however quit 13 years ago. She does report to be smoking recreational marijuana daily. We discussed at length potential causes of microscopic hematuria as well as further workup in risks and benefits of these interventions. She otherwise offers no other issues or concerns at this time. PREVIOUS OFFICE NOTE: Nephrolithiasis They are here for - further evaluation for nephrolithiasis - concurrent osteoporosis in setting of diabetes Urolithiasis was diagnosed - May 2020 - symptoms back pain in May which stopped early June The patient previously had kidney stones whose composition w - unknownLaboratory investigations include - no recent labs 24 Hour urine evaluation - none on file Prior treatment(s) include - 06/28 ESWL leftPrior imaging includes - May 2020 renal ultrasound 10 mm stone left UPJ, small right stone - 07/28 renal ultrasound no stones on left, 3 mm stone on right - 12/28 renal ultrasound 2 mm stones bilateral - 12/29 renal ultrasound bilateral 2-3 mm stones - 01/30 renal stones bilateral 4 mm multipleCurrent therapeutic plan will be - increased fluid intake - surveillance imaging - vitamin B6 [facility] Medical History Glaucoma Urgency incontinence Pulmonary nodules Cough Back pain Diabetic polyneuropathy associated with type 2 diabetes mellitus Depression GERD (gastroesophageal reflux disease) COPD (chronic obstructive pulmonary disease) Overweight (BMI 25.0-29.9) Dyslipidemia Vitamin D deficiency Non-toxic multinodular goiter Diabetes type 2, controlled Surgical History Hx of ultrasound guided needle biopsy History of cataract surgery Hx of eye surgery Hx of cholecystectomy History of ganglion cyst Hx of hysterectomy Family History Father No problems noted. Mother Vulva cancer Maternal Uncle Diabetes mellitus Maternal Aunt Diabetes mellitus Social History Housing: House Alcohol intake: never Patient Tobacco Use Status: Former Tobacco user Tobacco use type: Cigarette Years Smoked: 40 years e-Cigarette/Vaping Use: Never Used service: No Current occupational status: retired Cognitive needs: No Hearing needs: No Vision needs: No Female Reproductive History Menstrual Age of Menarche: 15 Review of Systems Eyes Reports as per HPI ENT Reports as per HPI Card Reports as per HPI Resp Reports as per HPI GI Reports as per HPI Reports as per HPI Musc Reports as per HPI Neuro Reports no additional complaints Psych Reports as per HPI Endo Reports as per HPI Paulo/Lymph Reports no additional complaints Aller/Immun Reports no additional complaints Physical Exam Const General: cooperative Resp Effort & Inspection: able to speak in complete sentences Psych Appearance: well kempt Speech and movement: Clear speech present Affect: normal affect Attitude: cooperative Thought content: Normal thought content present Insight: Fair insight present (Psych) Judgement: Fair judgement present (Psych) Telehealth Telehealth Telehealth Platform: [employer] Location of provider rendering services: practice address Location of patient: address on file Patient Identification confirmed using: Name, : Yes Telehealth method: voice only Patient verbally consented to treatment: Yes Patient verbally consented to billing insurance company: Yes Patient informed of any privacy concerns related to visit: Yes Minutes spent on Phone/Video with Pt.: 15 Results Reviewed Results Reviewed: Date of Service: 07/07/24 Procedure(s): CT urogram Findings: Centrilobular emphysema seen in the right lower lobe. The patient is status post cholecystectomy. The liver is otherwise unremarkable. There is a benign-appearing parapelvic cyst lower pole left kidney. There is a nonobstructing calculus in the midpole of the left kidney. There are bilateral extra renal pelves. There is left adrenal hyperplasia. The rest of the solid organs are unremarkable. No bowel obstruction, pneumoperitoneum, or pneumatosis. The patient is status post hysterectomy. There is colonic diverticulosis without evidence of diverticulitis. The appendix is not identified. There is no evidence of appendicitis. The urinary bladder is normal No acute fracture. There is degenerative disc disease at L4-5 and L5-S1 associated with facet arthropathy and left-sided spondylolysis at L5-S1. The rest of the GI tract is unremarkable. IMPRESSION: 1. Small nonobstructive calculus midpole left kidney. 2. Benign cyst lower pole left kidney. 3. Colonic diverticulosis without evidence of diverticulitis. 4. Left adrenal hyperplasia. Assessment & Plan Assessment & Plan (1) History of nicotine dependence: Code(s): Z87.891 - Personal history of nicotine dependence Category: Medical (2) Urgency incontinence: Code(s): N39.41 - Urge incontinence Category: Medical (3) Renal stones: Comment: July 2020 ESWL left 10 mm UPJ stone Code(s): N20.0 - Calculus of kidney Category: Medical Plan Recent CT results reviewed with the patient today; as noted above. We discussed importance of adequate hydration relation to nephrolithiasis. Continue vitamin B6. Continue adding 1 oz of lemon juice to water daily. Will reassess lower urinary tract symptoms status post completion of pelvic floor therapy; she will start pelvic floor therapy August 26. We discussed repeat urine cytology. We discussed further workup of microscopic hematuria in the setting of nicotine dependence to include cystoscopy; risks and benefits of these interventions were discussed; she will think about cystoscopy. Follow-up in November; or sooner with any issues, concerns, and or questions. Orders: Orders Urine Cytology 08/10/24 Z87.891 - Personal history of nicotine dependence Patient Instructions: The patient had an opportunity to ask questions regarding the treatment plan. All questions were answered. Physical exam, labs, and imaging were discussed and reviewed in detail. As well as risks, benefits, and discussion of treatment choices. No major barriers to understanding were identified. The patient expressed understanding and agreement with the above treatment plan. The patient was made aware they should contact our office by phone for worsening of their current condition, the appearance of new symptoms, or with any questions or concerns. Compliance is encouraged with any medications and follow up testing that is ordered. It is a privilege to be allowed the opportunity to participate in? your urological care.? Again, if you have any questions or concerns If you have any questions or concerns please do not hesitate to contact me. The office is [phone]. This note is constructed using voice recognition software. While every effort has been made to ensure accuracy grounds/maintenance specialist errors may have been included. Yours sincerely, JEANNIE Gar Coding Level of Care Code Tele Est Pt Level 3 (46340) Diagnoses History of nicotine dependence Z87.891 Urgency incontinence N39.41 Renal stones N20.0
== END 2024-08-10 15:36 | disposition home or self-care (01) ==
LOC: HO.HUSH 14:29
PROVIDERS: PCP Internal Medicine; Visit Provider Nurse Practitioner Family
DX: Z87.891 Personal history of nicotine dependence (principal); N39.41 Urge incontinence; N20.0 Calculus of kidney
CPT/HCPCS: 99213

== ENCOUNTER → 2024-08-10 14:29 | Outpatient (BNVA) | payer OTHER, SELFPAY | PROVIDERS: PCP Internal Medicine; Visit Provider Nurse Practitioner Family ==

== ENCOUNTER 2024-09-17 11:12 | Outpatient (AMB) | payer OTHER, SELFPAY ==
--- NOTE | 2024-09-17 11:21 | A.OFFVIS_ITS ---
Vital Signs 3 09/17/24 11:28 Height 5 ft 2 in Weight 136 lb 0.403 oz BMI 24.9 BP 114/58 L Blood Pressure Location Rt brachial Position Sitting Pulse 87 Pulse Source Pulse Oximeter Pulse Oximetry (%) 96 Oxygen Delivery Method Room Air Intake Visit Reasons: Diabetes Type 2 Intake Note: Patient present today to follow up on Type 2 Diabetes Mellitus. Last Diabetic Eye exam: approx 3 months ago Last Podiatry Visit: Does not see a Slice Plug Cutter Operator Helper Random Glucose: 122 mg/dl HgA1C: 6.4% 09/17/2024 Psychiatric Security Nurse Required: No Accompanied by: Grand Child Allergies albuterol Allergy (Severe, Verified 09/17/24 11:29) panic attacks naproxen Allergy (Severe, Verified 09/17/24 11:29) rash fosamx Adverse Reaction (Uncoded 09/17/24 11:29) Diarrhea Medication List - Last Reconciled 09/17/24 by Mary Kahn MD aspirin 81 mg PO DAILY atorvastatin 80 mg PO DAILY 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 meter (OneTouch Verio Flex Meter) Use to check blood sugar BID prn cholecalciferol (vitamin D3) 25 mcg PO DAILY 90 days Dexcom G7 Recruitment Director (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,physical medicine specialist,cont) As directed NS Dexcom G7 Sensor (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 sensor) every 10 days NS dorzolamide 2% 1 drp ophthalmic (eye) BID fluticasone propionate 220 mcg/actuation (Flovent HFA) 2 puffs inhalation BID lancets (1Life HealthcareTouch Delica Plus Lancet) Use to check blood sugar BID prn levalbuterol tartrate 45 mcg/actuation (Xopenex HFA) 1 puff inhalation Q4H PRN lisinopril 5 mg PO DAILY metformin ER 500 mg PO BID netarsudil-latanoprost 0.02-0.005 % ([facility]) 1 drp ophthalmic (eye) BEDTIME OneTouch Verio test strips (blood sugar diagnostic) Use to check blood sugar BID prn NS pyridoxine (vitamin B6) 100 mg PO DAILY 90 days roflumilast 500 mcg PO DAILY 90 days sertraline 100 mg PO DAILY 90 days tamsulosin 0.4 mg PO BEDTIME HPI Comments Details: 73 YO F with PMHx NTMNG who is seen in F/U for for type 2 diabetes mellitus today. Type 2 diabetes mellitus Previously she was under the care of Dr. Oumar Gallegos, now transferring to me for both diabetes as well as her thyroid problems Current regimen On metformin 500mg once daily (decreased from twice daily in november 2023 and from 1000mg in Mar 2024). A1C Apr 2024 6.1%. A1c POC today 09/17/2024 6.4% Compliant with medications. Has lost 50 pounds since initial diagnosis. SM BGs Monitoring glucose with OneTouch Verio- average glucose 111- 120 No interval lows, some 140s No hypoglycemia complications: Last Diabetic Eye exam:june 2024 Last Podiatry Visit: Does not see a Slice Plug Cutter Operator Helper , no neuropathy sx Kidney disease: Normal urine microalbumin ratio from April 2024, EGFR greater than 60 from June 2024 Macrovascular complications: No history of CAD, stroke, PID Statin: On atorvastatin 80 mg daily, LDL 68 mg/dL from April 2024 Oli/Arb: on lisinopril 5 mg daily Nontoxic multinodular goiter: not addressed today Prior HPI She has a longstanding history of a NTMNG. She denies any symptoms of hyper or hypothyroidism. She denies any compressive symptoms currently. She denies any personal history of radiation to the head or the neck. She has a family history of thyroid cancer in her niece and sister . She has not had any biopsies of her nodules in the past. sister and neice : thyroid cancer 02/24/2024: Repeat ultrasound thyroid, I reviewed the images myself which showed a right mid subcentimeter spongiform nodule, a right inferior 1.5 cm mixed cystic solid, isoechoic nodule with punctate echogenic foci, TR 4 category, this is not been biopsied before and meets criteria for FNA. She also has a 1 cm left superior mixed cystic solid, isoechoic nodule which has mildly increased in size, we will continue to monitor this for now. She has a another subcentimeter left inferior spongiform nodule. Interval history 05/26/2024: Underwent FNA biopsy of the right inferior 1.5 cm nodule which came back as benign, Hurley category 2. Physical exam General: sitting comfortably in no acute distress HEENT: normocephalic/atraumatic, Neck: supple, palpable 1 cm right-sided nodule Cardiac: normal heart sounds Pulm: normal breath sounds B/L, no added breath sounds Abd: not distended, no tenderness Extremities: no edema, no signs of myxedema Foot exam: Intact sensation to monofilament Laboratory Tests 05/07/24 05/07/24 07/07/24 10:33 10:37 09:23 POC Creatinine 0.9 POC GFR > 60 Glucose (Clinic) Hgb A1c (Clinic) Hemoglobin A1c % 6.1 H Albumin 4.3 LDL Cholesterol Direct 68 TSH 1.33 Urine Creatinine 59.50 Urine Microalbumin 8.0 Microalb/Creat Ratio 13.4 09/17/24 09/17/24 11:34 11:37 POC Creatinine POC GFR Glucose (Clinic) 122 H Hgb A1c (Clinic) 6.4 H Hemoglobin A1c % Albumin LDL Cholesterol Direct TSH Urine Creatinine Urine Microalbumin Microalb/Creat Ratio Laboratory Tests 05/23/23 09:29 TSH 1.16 Laboratory Tests 05/23/23 05/07/24 09:29 10:37 TSH 1.16 1.33 Imaging US THYROID 02/24/24 CLINICAL INFORMATION: Nontoxic single thyroid nodule. COMPARISON: 02/26/2023, 01/29/2022. TECHNIQUE: Linear transducer grayscale and color Doppler examination with attention to the region of the thyroid. Exam submitted for review 04/15/2024 1:56 PM FISHING MANAGER. FINDINGS: SIZE: Measurements of the thyroid lobes and nodules are given in sagittal, anteroposterior and transverse dimensions respectively. Right Thyroid Lobe: 4.6 x 1.3 x 1.4 cm, volume 4.4 mL. Parenchyma: The gland echotexture is homogeneous. Thyroid vascularity is mildly increased. Left Thyroid Lobe: 3.8 x 1.2 x 1.2 cm, volume 2.9 mL. Parenchyma: The gland echotexture is homogeneous. Thyroid vascularity is mildly increased. Isthmus: 0.3 cm in maximum AP dimension. Estimated total number of nodules greater than or equal to 1 cm: 2. Rn Heart nodules are described as follows: 1. Location: Right mid pole. Size: 0.6 x 0.4 x 0.5 cm, volume 0.07 mL. (Previously 0.15 mL) Nodule characteristics: Composition: Spongiform (0). ACR TI-RADS category: 1 2. Location: Right lower pole. Size: 1.5 x 0.7 x 0.9 cm, volume 0.54 mL. (Unchanged) Nodule characteristics: Composition: Mixed cystic and solid (1). Echogenicity: Isoechoic (1). Shape: Not taller than wide (0). Margins: Smooth (0). Echogenic Foci: Punctate echogenic foci (3). ACR TI-RADS total points: 5 ACR TI-RADS category: 4 3. Location: Right lower pole. Size: 0.7 x 0.3 x 0.7 cm, volume 0.07 mL. (Previously 0.15 mL) Nodule characteristics: Composition: Spongiform (0). ACR TI-RADS category: 1 4. Location: Left upper pole. Size: 1.0 x 0.8 x 0.8 cm, volume 0.36 mL. (Previously 0.24 mL) Nodule characteristics: Composition: Mixed cystic and solid (1). Echogenicity: Isoechoic (1). Shape: Not taller than wide (0). Margins: Smooth (0). Echogenic Foci: Punctate echogenic foci (3). ACR TI-RADS total points: 5 ACR TI-RADS category: 4 5. Location: Left lower pole. Size: 0.6 x 0.3 x 0.6 cm, volume 0.06 mL. (Unchanged) Nodule characteristics: Composition: Spongiform (0). ACR TI-RADS category: 1 NODES: No lymphadenopathy is seen in the tissue surrounding the thyroid gland. US/US thyroid IMPRESSION: 1. Multiple nodules as described, largest is a 1.5 cm right lower pole TR category 4 nodule. This is stable in size and morphology. FNA recommended if not already performed. 2. There is a 1.0 cm left upper pole TR category 4 nodule. This has minimally enlarged. Follow-up advised as per schedule below. 3. Remaining nodules are all unchanged, subcentimeter, and spongiform, and are thus benign. 4. Surrounding thyroid parenchyma is normal in appearance. US THYROID 03/01 CLINICAL INFORMATION: Nontoxic multinodular goiter. COMPARISON: Ultrasound soft tissue head/neck thyroid dated 01/29/2022 and 01/22/2021. TECHNIQUE: Linear transducer grayscale and color Doppler examination with attention to the region of the thyroid. FINDINGS: SIZE: Measurements of the thyroid lobes and nodules are given in sagittal, anteroposterior and transverse dimensions respectively. Right Thyroid Lobe: 5.0 x 1.4 x 1.4 cm, volume 5.2 mL. Previously 4.9 x 1.5 x 1.4 cm, volume 5.4 mL. Parenchyma: The gland echotexture is homogeneous. Thyroid vascularity is increased. Left Thyroid Lobe: 3.9 x 1.4 x 1.2 cm, volume 3.4 mL. Previously 4.2 x 1.2 x 1.2 cm, volume 3.0 mL. Parenchyma: The gland echotexture is homogeneous. Thyroid vascularity is increased. Isthmus: 0.35 cm in maximum AP dimension. Previously 0.39 cm. Estimated total number of nodules greater than or equal to 1 cm: 1. Rn Heart nodules are described as follows: 1. Location: Isthmus. Size: 0.36 x 0.26 x 0.42 cm, volume 0.02 mL. Previously: 0.52 x 0.25 x 0.39 cm, volume 0.03 mL. Nodule characteristics: Composition: Cystic(0). ACR TI-RADS total points: 0 Previous: 4 ACR TI-RADS category: 1 Previous: 4 Significant change in size (>/= 20% in 2 dimensions and minimal increase of 2 mm or 50% or greater increase in volume): No Change in features: Yes Change in ACR TI-RADS risk category: Yes 2. Location: Right inferior. Size: 0.94 x 0.49 x 0.64 cm, volume 0.15 mL. Previously: 0.60 x 0.37 x 0.56 cm, volume 0.07 mL. Nodule characteristics: Composition: Spongiform (0). Echogenicity: Anechoic (0). Shape: Not taller than wide (0). Margins: Smooth (0). Echogenic Foci: None (0). ACR TI-RADS total points: 0 Previous: 3 ACR TI-RADS category: 1 Previous: 3 Significant change in size (>/= 20% in 2 dimensions and minimal increase of 2 mm or 50% or greater increase in volume): Yes Change in features: No Change in ACR TI-RADS risk category: No 3. Location: Right inferior. Size: 1.5 x 0.72 x 0.82 cm, volume 0.50 mL. Previously: 1.4 x 0.71 x 0.82 cm, volume 0.42 mL. Nodule characteristics: Composition: Spongiform (0). Echogenicity: Anechoic (0). Shape: Not taller than wide (0). Margins: Smooth (0). Echogenic Foci: None (0). ACR TI-RADS total points: 0 Previous: 0 ACR TI-RADS category: 1 Previous: 1 Significant change in size (>/= 20% in 2 dimensions and minimal increase of 2 mm or 50% or greater increase in volume): No Change in features: No Change in ACR TI-RADS risk category: No 4. Location: Left superior. Size: 0.95 x 0.73 x 0.67 cm, volume 0.24 mL. Previously: 0.95 x 0.75 x 0.64 cm, volume 0.24 mL. Nodule characteristics: Composition: Mixed cystic and solid (1). Echogenicity: Hypoechoic (2). Shape: Not taller than wide (0). Margins: Smooth (0). Echogenic Foci: Punctate echogenic foci (3). ACR TI-RADS total points: 6 Previous: 6 ACR TI-RADS category: 4 Previous: 4 Significant change in size (>/= 20% in 2 dimensions and minimal increase of 2 mm or 50% or greater increase in volume): No Change in features: No Change in ACR TI-RADS risk category: No 5. Location: Left inferior. Size: 0.60 x 0.31 x 0.50 cm, volume 0.05 mL. Previously: Not seen on the previous study. Nodule characteristics: Composition: Spongiform (0). Echogenicity: Anechoic (0). Shape: Not taller than wide (0). Margins: Smooth (0). Echogenic Foci: None (0). ACR TI-RADS total points: 0 ACR TI-RADS category: 1 NODES: No lymphadenopathy is seen in the tissue surrounding the thyroid gland. US/US thyroid IMPRESSION: Stable left upper 1.0 cm TR 4 thyroid nodule. Continued surveillance recommended. ON LICENSE OF [facility] Medical History Glaucoma Urgency incontinence Pulmonary nodules Cough Back pain Diabetic polyneuropathy associated with type 2 diabetes mellitus Depression GERD (gastroesophageal reflux disease) COPD (chronic obstructive pulmonary disease) Overweight (BMI 25.0-29.9) Dyslipidemia Vitamin D deficiency Non-toxic multinodular goiter Diabetes type 2, controlled Surgical History Hx of ultrasound guided needle biopsy History of cataract surgery Hx of eye surgery Hx of cholecystectomy History of ganglion cyst Hx of hysterectomy Family History Father No problems noted. Mother Vulva cancer Maternal Uncle Diabetes mellitus Maternal Aunt Diabetes mellitus Social History Housing: House Alcohol intake: never Patient Tobacco Use Status: Former Tobacco user Tobacco use type: Cigarette Years Smoked: 40 years e-Cigarette/Vaping Use: Never Used service: No Current occupational status: retired Cognitive needs: No Hearing needs: No Vision needs: No Female Reproductive History Menstrual Age of Menarche: 15 Physical Exam Vital Signs: Last Vital Signs Pulse 87 09/17/24 11:28 BP 114/58 L 09/17/24 11:28 Pulse Ox 96 09/17/24 11:28 Oxygen Delivery Method Room Air 09/17/24 11:28 BMI result Body Mass Index 24.9 Results AMB Hemoglobin A1c 2 AMB Hemoglobin A1c 6.4 % Last Edit by KIERRA Yepez on 09/17/24 11:44 Results Reviewed Results Reviewed: Laboratory Last Values Glucose (Clinic) 122 mg/dL (60-115) H 09/17/24 11:34 Assessment & Plan Assessment & Plan (1) Diabetic polyneuropathy associated with type 2 diabetes mellitus: Code(s): E11.42 - Type 2 diabetes mellitus with diabetic polyneuropathy Category: Medical Plan: 74-year-old female with type 2 diabetes mellitus without long-term insulin use with complications of neuropathy. A1c 09/17/2024 POC at 6.4%. Well controlled type 2 diabetes Will continue her on metformin 500mg b.i.d.. No hypoglycemia continue annual eye exams Discussed importance of exercise 30 minutes 5 days a week Treat hypoglycemia rules of 15s Ordered labs prior to next follow up. (2) Dyslipidemia: Code(s): E78.5 - Hyperlipidemia, unspecified Category: Medical Plan: LDL at goal less than 70 mg/dL from April 2024. Continue current regimen with the atorvastatin daily. Plan I spent 30 minutes in reviewing the record, seeing the patient and documenting in the medical record. Orders: Orders 2 AMB Hemoglobin A1c Today E11.42 - Type 2 diabetes mellitus with diabetic polyneuropathy Lipid Panel 05/10/25 E11.42 - Type 2 diabetes mellitus with diabetic polyneuropathy Comprehensive Met. Panel 05/10/25 E11.42 - Type 2 diabetes mellitus with diabetic polyneuropathy Microalbumin, Random (w Creat) 05/10/25 E11.42 - Type 2 diabetes mellitus with diabetic polyneuropathy Vitamin B12 05/10/25 E11.42 - Type 2 diabetes mellitus with diabetic polyneuropathy Hemoglobin A1c 05/10/25 E11.42 - Type 2 diabetes mellitus with diabetic polyneuropathy Medications: New 2 metformin ER (Glucophage XR) 500 mg PO BID 180 tabs 3RF Patient Instructions: continue metformin 500mg twice daily Advised to walk 30 mins 5 days a week at least Do fasting blood work and urine test prior to next appointment Do annual eye visits Rule of 15 Treatment for Hypoglycemia (Low blood sugar) If your blood glucose is low (70 and below)*, follow the steps below to treat: Eat or drink something from the list below equal to 15 grams of carbohydrate (carb). Rest for 15 minutes Re-check your blood glucose. If it is still low, (below 70), repeat step 1 above. ? If your next meal is more than an hour away, you will need to eat one carbohydrate choice as a snack to keep your blood glucose from going low again. ?If you can't figure out why you have low blood glucose, call your healthcare provider, as your medicine may need to be adjusted. ?Always carry something with you to treat an insulin reaction. Use food from the list below. ? Foods equal to One Carbohydrate Choice (15 grams of carbohydrate): 3 Glucose ?tablets or 4 Dextrose tablets 4 ounces of fruit juice 5-6 ounces (about 1/2 can) of regular soda such as Coke or Pepsi ? 7-8 gummy or regular Life Savers ? 1 Tbsp. of sugar or jelly NOTE: If your blood sugar is less than 50, double the portion above for a total of 30 gm. ?Carbohydrate. ? Follow meal plan of 45-60 g of consistent carbohydrates at 3 meals each day and 15 g of carbohydrate at 1-2 snacks each day. Coding Level of Care Code Est Pt Level 4 (81488) Diagnoses Diabetic polyneuropathy associated with type 2 diabetes mellitus E11.42 Dyslipidemia E78.5 Time Spent (min) 30
[2024-09-17 11:28] VITALS: BP 114/58; PULSE 87; O2SAT 96; BMI 24.9
[2024-09-17 11:38] LABS: Glucose, Whole Blood 122 mg/dL (60-115)
== END 2024-09-17 12:07 | disposition home or self-care (01) ==
LOC: HO.ENCR 11:13
PROVIDERS: PCP Internal Medicine; Visit Provider Student in an Organized Health Care Education/Training Program
DX: E11.42 Type 2 diabetes mellitus with diabetic polyneuropathy (principal); E78.5 Hyperlipidemia, unspecified
CPT/HCPCS: 99214

== ENCOUNTER → 2024-09-17 11:12 | Outpatient (BNVA) | payer OTHER, SELFPAY | PROVIDERS: PCP Internal Medicine; Visit Provider Student in an Organized Health Care Education/Training Program | DX: E11.42 Type 2 diabetes mellitus with diabetic polyneuropathy (principal); E78.5 Hyperlipidemia, unspecified | CPT/HCPCS: 82947; 83036; 99212 ==

== ENCOUNTER 2024-10-15 11:13 | Outpatient (REF) | payer OTHER, SELFPAY ==
--- OUTSIDE RECORDS SUMMARY | 2024-10-15 11:19 | XMS_ITS | Clinical Summary ---
Author Organization [facility] [address] [facility] Address [address] [place] [address] Phone Care Team Providers Care Data Processing Mechanic Name Role Phone Sarkis Mendoza MD Primary Care Provider Unava ilable Medical History Medical History Date Comments History of tobacco use 04/03/2017 DX:Histor y of tobacco use COPD (chronic obstructive pu lmonary disease) ([facility] V24, [facility] V28) 04/03/2017 DX:COPD (chronic o bstructive pulmonary disease) ([facility]) Depression 04/03/2017 DX:Depression Hyperlipidemia 04/03/2017 DX:Hyperlipidemi a Hypertension 04/03/2017 DX:Hypertension Social History Tobacco Use Types Packs/Day Years Used Date Smoking Tobacco: Former Cigarettes Comments Unknown Sex and Gender Information Value Date Recorded Sex Assigned at Not on file Legal Sex Female 7:58 PM EST Gender Identity Not on file Sexual Orientation Not on file Obstetrics History Plan of Treatment Upcoming Encounters Date Type Department Care Team ([facility] st Contact Info) Description 12/05/2024 8:45 AM EDT Appointment [facility] CT Scan [address] [place] [address] Health Maintenance Due Date Last Done Comments Breast Cancer Screening 1950 DTaP,Tdap,and Td Vaccines (1 - Tdap) 06/13/1971 Pneumococcal Vaccine: 50+ Ye ars (1 of 2 - PCV) 06/13/1971 Zoster Vaccines (1 of 2) 2002 RSV Immunization Adult Patie nts (1 - Risk 60-74 years 1-dose series) 2012 Cholesterol Screening (Lipid Panel) 02/09/2022 Colorectal Cancer Screening: Colonoscopy 02/09/2022 Falls Risk Assessment 02/09/2022 Hepatitis C Screening 02/09/2022 Osteoporosis Screening (Bone Density Screening) 02/09/2022 Social Influencers of Health Screening 02/09/2022 Hypertension/CHF/CAD Annual BMP Blood Test 02/22/2022 COVID-19 Vaccine (1 - 2023-2 5 season) 2023 Depression Screening 03/10/2024 Influenza Vaccine (#1) 2024 HIB Vaccines Aged Out No longer eligi ble based on patient's age to complete this topic HPV Vaccines Aged Out No longer eligi ble based on patient's age to complete this topic Hepatitis A Vaccines Aged Out No long er eligible based on patient's age to complete this topic Hepatitis B Vaccines Aged Out No long er eligible based on patient's age to complete this topic IPV Vaccines Aged Out No longer eligi ble based on patient's age to complete this topic MMR Vaccines Aged Out No longer eligi ble based on patient's age to complete this topic Meningococcal ACWY Vaccine Aged Out N o longer eligible based on patient's age to complete this topic Meningococcal B Vaccine Aged Out No l onger eligible based on patient's age to complete this topic RSV Immunization Patients Un sena 20 months Aged Out No longer eligible b ased on patient's age to complete this topic Varicella Vaccines Aged Out No longer eligible based on patient's age to complete this topic Insurance MEDICAID - [place] [facility] Member Subscriber Plan / Payer (Ef fective 2019-Present) Name:Cassandra Powers Relation to Subscriber:Spouse Name:CASSANDRA POWERS Date of :1952 Payer ID:[id number] Group ID:[id number] Type:Not on file Address: [facility] [address] [id number] Care Teams Data Processing Mechanic Relationship Specialty Start Date End Date Sarkis Mendoza MD PCP - General Internal Medicine 01/15/18
== END 2024-10-15 11:14 | disposition home or self-care (01) ==
LOC: HO.MAMMO 11:13
PROVIDERS: PCP Internal Medicine; Visit Provider Internal Medicine
DX: Z12.31 Encounter for screening mammogram for malignant neoplasm of breast (principal)
CPT/HCPCS: 77063; 77067

== ENCOUNTER → 2024-10-15 11:30 | Outpatient (BNV) | payer OTHER, SELFPAY | PROVIDERS: PCP Internal Medicine; Visit Provider Internal Medicine | DX: Z12.31 Encounter for screening mammogram for malignant neoplasm of breast (principal) | CPT/HCPCS: 77063; 77067 ==

== ENCOUNTER 2024-11-29 10:43 | Outpatient (REF) | payer OTHER, SELFPAY | END 2024-11-29 10:44 | disposition home or self-care (01) | LOC: HO.LAB 10:43 | PROVIDERS: PCP Internal Medicine; Visit Provider Nurse Practitioner Family | DX: N20.0 Calculus of kidney (principal); N39.41 Urge incontinence; R31.21 Asymptomatic microscopic hematuria; R89.6 Abnormal cytological findings in specimens from other organs, systems and tissues; Z87.891 Personal history of nicotine dependence; Z13.89 Encounter for screening for other disorder | CPT/HCPCS: 51798; 81003; 88112; 99212 ==

== ENCOUNTER 2024-11-29 10:43 | Outpatient (AMB) | payer OTHER, SELFPAY ==
--- NOTE | 2024-11-29 10:53 | A.OFFVIS_ITS ---
Intake Visit Reasons: follow up Intake Note: patient presents today for: follow up urology medications: none blood thinners: none today's PVR: 86mls Content Checker Required: No Accompanied by: Self / Same As Patient Allergies albuterol Allergy (Severe, Verified 11/29/24 11:45) panic attacks naproxen Allergy (Severe, Verified 11/29/24 11:45) rash fosamx Adverse Reaction (Uncoded 11/29/24 11:45) Diarrhea Medication List - Last Reconciled 11/29/24 by BHARAT Gar- aspirin 81 mg PO DAILY atorvastatin 80 mg PO DAILY 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 meter (OneTouch Verio Flex Meter) Use to check blood sugar BID prn cholecalciferol (vitamin D3) 25 mcg PO DAILY 90 days Dexcom G7 Pot Feeder (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,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,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) As directed NS Dexcom G7 Sensor (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 sensor) every 10 days NS dorzolamide 2% 1 drp ophthalmic (eye) BID fluticasone propionate 220 mcg/actuation (Flovent HFA) 2 puffs inhalation BID lancets (SmartyPants VitaminsTouch Delica Plus Lancet) Use to check blood sugar BID prn levalbuterol tartrate 45 mcg/actuation (Xopenex HFA) 1 puff inhalation Q4H PRN lisinopril 5 mg PO DAILY metformin ER 500 mg PO BID metformin ER (Glucophage XR) 500 mg PO BID netarsudil-latanoprost 0.02-0.005 % (Rocklatan) 1 drp ophthalmic (eye) BEDTIME OneTouch Verio test strips (blood sugar diagnostic) Use to check blood sugar BID prn NS pyridoxine (vitamin B6) 100 mg PO DAILY 90 days roflumilast 500 mcg PO DAILY 90 days sertraline 100 mg PO DAILY 90 days tamsulosin 0.4 mg PO BEDTIME HPI Comments Details: Porsche is a very pleasant 74-year-old female patient of Dr. Cash. She has a past medical history of glaucoma, urge incontinence, pulmonary nodules, diabetic polyneuropathy associated with type 2 diabetes, depression, GERD, COPD, dyslipidemia, vitamin-D deficiency, and nontoxic multinodular goiter. She presents to the office today for follow-up of her nephrolithiasis, abnormal cytology, and urge incontinence. In discussion with the patient today she reports she was due to follow-up with physical therapy and initiate pelvic floor therapy sometime in August however postponed as she was busy this summer watching her grandchildren. She does plan to initiate therapy soon. Information was provided. She does continue to utilize 4-5 Renae pads per day as she continues to experience episodes of urge incontinence. During last visit we discussed obtaining repeat urine cytology however this was never performed. In office urinalysis results reviewed with the patient today microscopic hematuria again noted. Will send for urine cytology. Patient with a longstanding history of nephrolithiasis most recent renal imaging CT urogram 08/01 noted small nonobstructing calculus mid pole left kidney. Benign left lower pole cyst. No hydronephrosis noted bilaterally. The urinary bladder is normal per radiology report. Urine cytology 06/01 Atypical urothelial cells. She does have a previous history of 2 vaginal births of average size babies with uneventful labors. We discussed at length potential causes and treatment options for mixed urinary incontinence and risks and benefits of these interventions. She otherwise denies urinary urgency, urinary frequency, nocturia, hematuria, dysuria, foul smelling urine, changes to urinary stream, flank pain, fever, and or chills. She has a previous history of nicotine dependence for many years however quit 13 years ago. She does report to be smoking recreational marijuana daily. We discussed at length potential causes of microscopic hematuria as well as further workup in risks and benefits of these interventions. She discusses her recent thyroid biopsy. PVR today 86 mL. She otherwise offers no other issues or concerns at this time. PREVIOUS OFFICE NOTE: Nephrolithiasis They are here for - further evaluation for nephrolithiasis - concurrent osteoporosis in setting of diabetes Urolithiasis was diagnosed - May 2020 - symptoms back pain in May which stopped early June The patient previously had kidney stones whose composition w - unknownLaboratory investigations include - no recent labs 24 Hour urine evaluation - none on file Prior treatment(s) include - 06/28 ESWL leftPrior imaging includes - May 2020 renal ultrasound 10 mm stone left UPJ, small right stone - 07/28 renal ultrasound no stones on left, 3 mm stone on right - 12/28 renal ultrasound 2 mm stones bilateral - 12/29 renal ultrasound bilateral 2-3 mm stones - 01/30 renal stones bilateral 4 mm multipleCurrent therapeutic plan will be - increased fluid intake - surveillance imaging - vitamin B6 [facility] Medical History Abnormal cytology Glaucoma Urgency incontinence Pulmonary nodules Cough Back pain Diabetic polyneuropathy associated with type 2 diabetes mellitus Depression GERD (gastroesophageal reflux disease) COPD (chronic obstructive pulmonary disease) Overweight (BMI 25.0-29.9) Dyslipidemia Vitamin D deficiency Non-toxic multinodular goiter Diabetes type 2, controlled Surgical History Hx of ultrasound guided needle biopsy History of cataract surgery Hx of eye surgery Hx of cholecystectomy History of ganglion cyst Hx of hysterectomy Family History Father No problems noted. Mother Vulva cancer Maternal Uncle Diabetes mellitus Maternal Aunt Diabetes mellitus Social History Housing: House Alcohol intake: never Patient Tobacco Use Status: Former Tobacco user Tobacco use type: Cigarette Years Smoked: 40 years e-Cigarette/Vaping Use: Never Used service: No Current occupational status: retired Cognitive needs: No Hearing needs: No Vision needs: No Female Reproductive History Menstrual Age of Menarche: 15 Review of Systems Eyes Reports as per HPI ENT Reports as per HPI Card Reports as per HPI Resp Reports as per HPI GI Reports as per HPI Reports as per HPI Musc Reports as per HPI Neuro Reports no additional complaints Psych Reports as per HPI Endo Reports as per HPI Paulo/Lymph Reports no additional complaints Aller/Immun Reports no additional complaints Physical Exam Const General: cooperative, healthy appearing, comfortable, no acute distress, well developed, alert and awake Orientation/consciousness: patient oriented x3 Limitations: no limitations HEENT Head: Yes normal to inspection Ears: hearing grossly normal bilaterally Eyes General: appearance normal, both eyes and all related structures Neck Neck: Yes normal visual inspection and Yes trachea midline Chest Chest palpation & inspection: normal inspection of the chest Resp Effort & Inspection: normal respiratory effort and able to speak in complete sentences Cardio Rate: regular rate GI Inspection: Yes normal to inspection General: Yes no CVA tenderness Back/Spine/Pelvis Back: no CVA tenderness Skin General skin exam: no rashes or lesions noted Neuro General: patient oriented x3 Extrem General: Yes normal to inspection Psych Appearance: grossly normal and well kempt Mental Status: mental status grossly normal Speech and movement: Normal speech and movement present and Clear speech present Affect: normal affect Attitude: cooperative Thought process: Normal thought process present Thought content: Normal thought content present Insight: Fair insight present (Psych) Judgement: Fair judgement present (Psych) Office Procedures Post Void Residual Post Residual Void Post Void Residual (PVR): 86 [id number] Void Residual by ultrasound Results AMB Urinalysis, Automated UA Leukoctes 0 Rosalva/uL Last Edit by DEMARCO Lopez on 11/29/24 11:10 UA Nitrite Negative Last Edit by DEMARCO Lopez on 11/29/24 11:10 UA Urobilinogen 3.5 mg/dL Last Edit by DEMARCO Lopez on 11/29/24 11:1 0 UA Protein 0 mg/dL Last Edit by Mckenna Parisi CCM on 11/29/24 11:10 UA pH 6.0 Last Edit by Mckenna Parisi CCM on 11/29/24 11:10 UA Blood 25 Prasad/uL Last Edit by DEMARCO Lopez on 11/29/24 11:10 UA Specific [place] 1.020 Last Edit by Mckenna Parisi CCM on 11/29/24 11: 10 UA Ketone Negative Last Edit by DEMARCO Lopez on 11/29/24 11:10 UA Bilirubin 0 mg/dL Last Edit by DEMARCO Lopez on 11/29/24 11:10 UA Glucose 0 mg/dL Last Edit by Mckenna Parisi CCM on 11/29/24 11:10 Results Reviewed Results Reviewed: Laboratory Last Values Urine pH (Auto) 6.0 11/29/24 11:09 Specific [place] (Auto) 1.020 11/29/24 11:09 Urine Protein (Auto) 0 mg/dL 11/29/24 11:09 Glucose (UA)(Auto) 0 mg/dL 11/29/24 11:09 Urine Ketones (Auto) Negative 11/29/24 11:09 Urine Blood (Auto) 25 Prasad/uL 11/29/24 11:09 Urine Nitrite (Auto) Negative 11/29/24 11:09 Urine Bilirubin (Auto) 0 mg/dL 11/29/24 11:09 Urine Urobilinogen (Auto) 3.5 mg/dL 11/29/24 11:09 Leukocyte Esterase (Auto) 0 Rosalva/uL 11/29/24 11:09 Assessment & Plan Assessment & Plan (1) History of nicotine dependence: Code(s): Z87.891 - Personal history of nicotine dependence Category: Medical (2) Urgency incontinence: Code(s): N39.41 - Urge incontinence Category: Medical (3) Renal stones: Comment: July 2020 ESWL left 10 mm UPJ stone Code(s): N20.0 - Calculus of kidney Category: Medical Plan In office urinalysis results reviewed with the patient today; as noted above; will send for urine cytology We discussed importance of adequate hydration relation to nephrolithiasis. Continue vitamin B6. Continue adding 1 oz of lemon juice to water daily. Will reassess lower urinary tract symptoms status post completion of pelvic floor therapy; contact information was provided We discussed repeat urine cytology. We discussed further workup of microscopic hematuria in the setting of nicotine dependence to include cystoscopy; risks and benefits of these interventions were discussed; she will think about cystoscopy. Will obtain renal ultrasound Follow-up in 3-4 months with imaging or sooner with any issues, concerns, and or questions. Orders: Orders Urine Cytology Today R31.21 - Asymptomatic microscopic hematuria, R89.6 - Abnormal cytological findings in specimens from other organs, systems and tissues AMB Post Void Residual by ultrasound Today N39.41 - Urge incontinence AMB Urinalysis Automated Today Z13.9 - Encounter for screening, unspecified US renal BI 3 Months N20.0 - Calculus of kidney Medications: Discontinued tamsulosin Discontinued Reason: Patient no longer taking 0.4 mg PO BEDTIME 14 caps 0RF Patient Instructions: The patient had an opportunity to ask questions regarding the treatment plan. All questions were answered. Physical exam, labs, and imaging were discussed and reviewed in detail. As well as risks, benefits, and discussion of treatment choices. No major barriers to understanding were identified. The patient expressed understanding and agreement with the above treatment plan. The patient was made aware they should contact our office by phone for worsening of their current condition, the appearance of new symptoms, or with any questions or concerns. Compliance is encouraged with any medications and follow up testing that is ordered. It is a privilege to be allowed the opportunity to participate in? your urological care.? Again, if you have any questions or concerns If you have any questions or concerns please do not hesitate to contact me. The office is [phone]. This note is constructed using voice recognition software. While every effort has been made to ensure accuracy fixed income portfolio manager errors may have been included. Yours sincerely, JEANNIE Gar Coding Level of Care Code Est Pt Level 3 (80893) Complex EM visit Add On G2211 Diagnoses History of nicotine dependence Z87.891 Urgency incontinence N39.41 Renal stones N20.0 CPT Codes Post Residual Void - PVR CPT Code: 50031-Olfk Void Residual by ultrasound ([id number])
--- OUTSIDE RECORDS SUMMARY | 2024-11-29 13:09 | XMS_ITS | Clinical Summary ---
Author Organization [facility] [address] [facility] [address] Address [address] [place] [address] Phone Care Team Providers Care Telegraphic Typewriter Installer Name Role Phone Sarkis Mendoza MD Primary Care Provider Isidro ilfreddie Encounters Date Type Department Care Team Description 11/17/2024 Telephone Lung Screening Program - [place] [address] [facility] [address] [place] [address] Zulma Casper MA from Last 3 Months Medical History Medical History Date Comments History of tobacco use 04/03/2017 DX:Histor y of tobacco use COPD (chronic obstructive pu lmonary disease) ([facility] V24, [facility] V28) 04/03/2017 DX:COPD (chronic o bstructive pulmonary disease) ([facility]) Depression 04/03/2017 DX:Depression Hyperlipidemia 04/03/2017 DX:Hyperlipidemi a [...] Upcoming Encounters Date Type Department Care Team (Late st Contact Info) Description 12/06/2024 10:15 AM EDT Appointment [facility] CT Scan [address] [place] [address] Health Maintenance Due Date Last [...] 02/09/2022 Hypertension/CHF/CAD Annual BMP Blood Test 02/22/2022 Depression Screening 03/10/2024 COVID-19 Vaccine ( - 2023-2 5 season) 2024 Influenza Vaccine (#1) 2024 HIB Vaccines Aged [...] complete this topic Insurance [place] - [place] [facility] Member Subscriber Plan / Payer (Ef fective 2019-Present) Name:Cassandra Powers Relation to Subscriber:Spouse Name:CASSANDRA POWERS Date of :1952 Address: [address] [place], [place] [address] [facility] [id number] [place] [address] Payer ID:[id number] Group ID:[id number] Type:Not on file Address: [place] [address] [address] [address] Care Teams Telegraphic Typewriter Installer Relationship Specialty Start Date End Date Sarkis Mendoza MD PCP - General Internal Medicine 01/15/18
--- OUTSIDE RECORDS SUMMARY | 2024-11-29 13:09 | XMS_ITS | Clinical Summary ---
Author Organization [facility] Address [address] [facility] [address] [place] [id number] Phone Care Team Providers Care Framing Mill Operator Name Role Phone Alma Cash MD Primary Care Provider [phone] Allergies Active Allergy Reactions Criticality Noted Date Comments Naproxen Sodium 09/09/2022 Brimonidine 09/09/2022 Bimatoprost 09/09/2022 Brinzolamide-Brimonidine 09/09/2022 Travoprost 09/09/2022 Latanoprost 09/09/2022 Medications dorzolamide- oloL (COSOPT) 22.3-6.8 mg/mL ophthalmic solution Place 1 drop into each eye 2 (two) times a day. 07/10/2022 Active ROCKLATAN 0.02-0.005 % Drop Place 1 drop into the right eye nightly at bedtime. 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 x / OS . x Optic nerve structure and function: Medications and intolerances: bimatoprost, travoprost, latanoprost, brimonidine - allergy; Rocklatan, Cosopt Procedures and Complications: SLT right eye x2, left eye x1 02/2022 (elsewhere) Relevant history and problems: Diabetes mellitus, COPD Notes to Donaldo Yun MD Assessment & Plan (10/29/2023 1:26 PM EDT): Continue Rocklatan right eye daily, dorzolamide/timolol both eyes twice per day Assessment & Plan (04/23/2023 1:27 PM EST): Continue Rocklatan right eye daily, dorzolamide/timolol both eyes twice per day Assessment & Plan (09/09/2022 11:21 AM EDT): Continue Rocklatan right eye daily, dorzolamide/timolol both eyes twice per day Family History Medical History Relation Comments Glaucoma Maternal Uncle Glaucoma Sister Relation Status Comments Maternal Uncle Sister Social History Tobacco Use Types Packs/Day Years Used Date Smoking Tobacco: Never Assessed Education Answer Date Recorded Are you interested in more education? Not on jacquelin e 07/06/2022 Are you concerned about learning? Not on file 07/06/2022 No 07/06/2022 No 07/06/2022 Digital Access Answer Date Recorded No 08/04/2022 No 08/04/2022 Reliable internet access at home? Not on file 08/04/2022 Device with a working camera? Not on file Comments Unknown Sex and Gender Information Value Date Recorded Sex Assigned at Not on file Legal Sex Female 10:25 AM EST Gender Identity Not on file Sexual Orientation Not on file Plan of Treatment Health Maintenance Due Date Last Done Comments Adult Td,Tdap Booster 1950 CREATININE LEVEL 1950 LIPID PANEL 1950 DEPRESSION SCREENING 1964 SMOKING Hx and SMOKELESS TOB ACCO SCREENING 1965 HEPATITIS C SCREENING 1970 MAMMOGRAM 1992 COLOGUARD 1997 COLONOSCOPY 1997 COLORECTAL CANCER SCREENING 1997 FIT TEST 1997 FOBT 1997 SIGMOIDOSCOPY 1997 VIRTUAL COLONOSCOPY 1997 PNEUMOCOCCAL VACCINES (50+ y ears) (1 of 1 - PCV) 2002 ZOSTER VACCINES (1 of 2) 2002 OSTEOPOROSIS SCREENING INITI AL (ONE-TIME) 2017 INFLUENZA VACCINE (#1) 2024 COVID-19 VACCINE (1 - 2023-2 5 season) 2024 RSV VACCINE (1 - 1-dose 75+ series) 06/13/2027 HEPATITIS A VACCINES Aged Out No long er eligible based on patient's age to complete this topic HIB VACCINES Aged Out No longer eligi ble based on patient's age to complete this topic MENINGOCOCCAL VACCINES (ACWY) Aged Out No longer eligible based on patient's age to complete this topic MENINGOCOCCAL VACCINES (B) Aged Out N o longer eligible based on patient's age to complete this topic Medical Devices Not on file Insurance [facility] MEDICARE REPLACEMENT [address] [place] [id number] [facility] MEDICARE REPLACEMENT [facility] MEDICARE REPLACEMENT [facility] MEDICARE REPLACEMENT [facility] MEDICARE REPLACEMENT [facility] MEDICARE REPLACEMENT Care Teams Framing Mill Operator Relationship Specialty Start Date End Date Alma Cash MD [address] [place] [id number] PCP - General Internal Medicine 04/01/22 Additional Source Comments The information contained in this document represents components of the legal health record. It is not the complete legal health record.[facility]
== END 2024-11-29 11:18 | disposition home or self-care (01) ==
LOC: HO.HUSH 10:43
PROVIDERS: PCP Internal Medicine; Visit Provider Nurse Practitioner Family
DX: Z87.891 Personal history of nicotine dependence (principal); N39.41 Urge incontinence; N20.0 Calculus of kidney; Z13.9 Encounter for screening, unspecified
CPT/HCPCS: 99213; G2211

== ENCOUNTER 2025-01-12 15:19 | Outpatient (AMB) | payer OTHER, SELFPAY ==
[2025-01-12 15:23] VITALS: BP 108/74; PULSE 86; O2SAT 96; BMI 25.6
--- NOTE | 2025-01-12 15:23 | A.OFFPC_ITS ---
Vital Signs 01/12/25 15:23 Height 5 ft 2 in Weight 140 lb BMI 25.6 BP 108/74 Blood Pressure Location Lt brachial Position Sitting Pulse 86 Pulse Source Pulse Oximeter Pulse Oximetry (%) 96 Intake Visit Reasons: Reschedule Annual PE Allergies albuterol Allergy (Severe, Verified 01/12/25 15:24) panic attacks naproxen Allergy (Severe, Verified 01/12/25 15:24) rash fosamx Adverse Reaction (Uncoded 11/29/24 11:45) Diarrhea Medication List - Last Reconciled 01/12/25 by Alma Cash MD aspirin 81 mg PO DAILY atorvastatin 80 mg PO DAILY 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 meter (E-Band CommunicationsTouch Verio Flex Meter) Use to check blood sugar BID prn cholecalciferol (vitamin D3) 25 mcg PO DAILY 90 days Dexcom G7 Sales And Operations Trainee (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,english language arts teacher,cont) As directed NS Dexcom G7 Sensor (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 sensor) every 10 days NS dorzolamide 2% 1 drp ophthalmic (eye) BID fluticasone propionate 220 mcg/actuation (Flovent HFA) 2 puffs inhalation BID lancets (ReferBrightuch Delica Plus Lancet) Use to check blood sugar BID prn levalbuterol tartrate 45 mcg/actuation (Xopenex HFA) 1 puff inhalation Q4H PRN lisinopril 5 mg PO DAILY metformin ER (Glucophage XR) 500 mg PO BID netarsudil-latanoprost 0.02-0.005 % (Rocklatan) 1 drp ophthalmic (eye) BEDTIME OneTouch Verio test strips (blood sugar diagnostic) Use to check blood sugar BID prn NS pyridoxine (vitamin B6) 100 mg PO DAILY 90 days roflumilast 500 mcg PO DAILY 90 days sertraline 100 mg PO DAILY 90 days Tobacco use date assessed: 04/30/24 Fall risk assessment: No Falls in past year Last assessed Fall Risk: 01/12/25 Dental Screening Dental Screen Date: 04/30/24 HPI Reschedule Annual PE HPI Details History of Present Illness The patient is a 74-year-old female presenting for a physical examination. Osteopenia: - The patient has a history of osteopeni a and has not had a bone density scan in quite a while. Anxiety and Depression: - The patient has a history of anxiety a nd depression, for which she takes sertraline 100 mg. - She reports her mood is okay and is se eing a counselor following the passing of her grandson, which she finds somewhat helpful. - The patient wishes to continue her med ication. Nephrolithiasis: - The patient has a history of renal liam culi and is followed by a urologist, Dr. Lomax. - It is currently unknown if she still h as kidney stones, and she is scheduled for an ultrasound next month for further evaluation. Diabetes Mellitus: - The patient has a history of diabetes, which is managed by an horse and wagon driver. - Her last hemoglobin A1c was 6.0%. - Her last set of labs was in April this year, and her horse and wagon driver has ordered a new set for May of next year. Chronic Obstructive Pulmonary Disease (COPD): - The patient has a history of COPD and is managed by a slot service specialist, Dr. Colin. - She uses a Flovent inhaler and reports her breathing is fine. - She has a follow-up appointment with [facility] geology faculty member in March. Dyslipidemia: - The patient has a history of dyslipide naomie and takes atorvastatin 80 mg. Vitamin D Deficiency: - The patient has a history of vitamin D deficiency and is on a supplement. Hypertension: - The patient has a history of hypertens ion and takes lisinopril 5 mg. - Her blood pressure at the visit was 10 8/74 mmHg. Health Maintenance: - The patient underwent a mammogram in [facility] of this year. - Her last colon cancer screening was a negative Cologuard test in July of last year, with the next one due in July 2026. - She sees an RIGGER THIRD annually and does n ot require Pap smears. - The patient sees her eye doctor, Dr. Burak anderson, every four months and has an upcoming appointment next month. - Her Tdap vaccine is up to date until , but she is due for the flu, pneumonia 20, and shingles vaccines. Medical History: - Osteopenia - Anxiety and depression - Renal calculi - Diabetes - COPD - Dyslipidemia - Vitamin D deficiency - Hypertension - Arthritis of the wrist - History of smoking, quit 13 years ago Social History: - Substance Use: The patient is a former smoker, having quit 13 years ago. - Social Support: The patient is seeing a counselor for grief following the of her grandson. Health Maintenance - Last seen in April of this year. - CHOIR DIRECTOR: Seen annually, last visit was in January of the previous year. - Mammogram: Completed in October of this year. - Colon Cancer Screening: Patient uses Ld singh; last test was in July of the previous year and was negative. - Bone Density Scan: Has not been done i n a while and is due. - Vaccinations: Tdap is up to date until 2027. - Vaccinations due: Flu, Pneumonia 20, a nd Shingles. - Eye Exam: Sees Dr. Juarez every fou r months, with the next appointment scheduled for next month. - Labs: Last labs were in April; next set is scheduled for May. [place] of Care - Saddle Lining Stitcher for diabetes managemen t. - Dr. Colin (Trimmer Sawyer) for COPD . - Dr. Lomax (Urologist) for renal calcul i. - RIGGER THIRD for annual exams. - Dr. Juarez (Hides Soaker) for [facility]. - Counselor for grief support. - Referred to Dermatology for skin lesio ns. Medications - Atorvastatin 80 mg for dyslipidemia. - Vitamin D supplement. - Flovent inhaler for COPD. - Lisinopril 5 mg for hypertension. - Sertraline 100 mg for anxiety and depr ession. Patient Instructions - Stop taking lisinopril. - Check your blood pressure at a pharmac y and call the office in a few days to report the readings. - You are due for a flu shot, a pneumoni a vaccine (Pneumonia 20), and a shingles vaccine. - Call the provided number to schedule a n appointment with a conductor and engineer to have the bump on your head and moles on your face checked. - Talk to your horse and wagon driver about get ting a bone density scan. - Your next follow-up visit will be in s ix months for your sertraline prescription, and your next annual physical will be in one year. Review of Systems - General: No fever no chills - Neurological: No headaches no dizzin ess - Ear nose throat: No sore throat no hearing difficulty no ear pain - Cardiovascular: No syncope, no chest pain, no palpitations - Gastrointestinal: No nausea vomiting or diarrhea - Endocrine: No polyuria polydipsia no heat intolerance - Genitourinary: No dysuria - Skin: No new complaints Physical Exam General: Cooperative, healthy appearing, comfortable, no acute distress Orientation: Patient oriented x3 Head: Normal to inspection, with a small bump noted Ears: Within normal limit visually Nose: Normal external nose present Face and sinus: Normal facial exam, moles present Eyes: Appearance normal, extraocular movement intact pupils reactive Neck: Normal visual inspection and supple Respiratory: Normal respiratory effort and able to speak in complete sentences. Clear to auscultation, no stridor Cardiovascular: S1 and S2 RRR, blood pressure 108/74, noted to be low GI: Normal to inspection. Soft to palpation and nontender Skin: Turgor normal, no acute findings, skin intact Neuro: Patient oriented x3, motor sensory intact, balance intact, tandem pass, Extremities: Normal to inspection, arthritis in wrist noted, ROM age appropriate . [facility] Medical History Abnormal cytology Glaucoma Urgency incontinence Pulmonary nodules Cough Back pain Diabetic polyneuropathy associated with type 2 diabetes mellitus Depression GERD (gastroesophageal reflux disease) COPD (chronic obstructive pulmonary disease) Overweight (BMI 25.0-29.9) Dyslipidemia Vitamin D deficiency Non-toxic multinodular goiter Diabetes type 2, controlled Surgical History Hx of ultrasound guided needle biopsy History of cataract surgery Hx of eye surgery Hx of cholecystectomy History of ganglion cyst Hx of hysterectomy Family History Father No problems noted. Mother Vulva cancer Maternal Uncle Diabetes mellitus Maternal Aunt Diabetes mellitus Social History Housing: House Alcohol intake: never Patient Tobacco Use Status: Former Tobacco user Tobacco use type: Cigarette Years Smoked: 40 years e-Cigarette/Vaping Use: Never Used service: No Current occupational status: retired Cognitive needs: No Hearing needs: No Vision needs: No Female Reproductive History Menstrual Age of Menarche: 15 Questionnaire Thrive Questionnaire Date Thrive assessed: 04/30/24 I am a: Patient What is your living situation today?: I have a steady place to live Within the past 12 months, did the food you bought not last and you didn't have the money to get more?: Never true Within the past 12 months, did you worry whether your food would run out before you got money to buy more?: Never true Do you have trouble paying for medicines?: No Do you have trouble getting transportation to medical appointments?: No Do you have trouble paying your heating and electricity bill?: No Do you have trouble taking care of your child, family member or friend?: No Do you have trouble with day-to-day activities such as bathing, preparing meals, shopping, managing finances, etc.?: No Are you currently unemployed and looking for a job?: No Are you interested in more education?: No Please select the resources that you would like help with: None Currently or been in a relationship where the following occur: No concerns reported THRIVE Score: 0 ALETA-7 AMB Questionnaire ALETA-7 Date ALETA - 7 assessed: 04/30/24 Source: Developed by Drs. Giovani Robledo, Angélica Casper, Odin Narayan and colleagues, with an educational florentin from [employer]. Physical exam (Primary Care) Vital Signs: Last Vital Signs Pulse 86 01/12/25 15:23 BP 108/74 01/12/25 15:23 Pulse Ox 96 01/12/25 15:23 BMI result Body Mass Index 25.6 Tobacco/Smoking Status: Tobacco use Status Tobacco use date assessed 04/30/24 01/12/25 15:27 Patient Tobacco Use Status Former Tobacco user 01/12/25 15:27 Tobacco use type Cigarette 01/12/25 15:27 e-Cigarette/Vaping Use Never Used 01/12/25 15:27 Thrive Assessment: Date of Thrive Assessment Date Thrive assessed 04/30/24 01/12/25 15:27 Currently or been in a relationship where the following occur: No concerns reported Coding Level of Care Code Est Pt Level 3 (14593) Est Pt Prev Care >65y(37477) Diagnoses Encounter for general adult medical examination with abnormal findings Z00.01 Anxiety, generalized F41.1 Chronic major depressive disorder, recurrent episode F33.9 Lipid disorder E78.9 Controlled type 2 diabetes mellitus with diabetic polyneuropathy, without long- term current use of insulin E11.42 Diabetes mellitus detention insulin use: without detention use Diabetes mellitus complication status: with neurologic complications Diabetes mellitus complication detail: with polyneuropathy Gastroesophageal reflux disease without esophagitis K21.9 Esophagitis presence: without esophagitis Renal stones N20.0 Urgency incontinence N39.41 Diabetic polyneuropathy associated with type 2 diabetes mellitus E11.42 Mucopurulent chronic bronchitis J41.1 COPD type: chronic bronchitis Chronic bronchitis type: mucopurulent Ex-smoker Z87.898 Assessment & Plan Assessment & Plan (1) Encounter for general adult medical examination with abnormal findings: Code(s): Z00.01 - Encounter for general adult medical examination with abnormal findings Category: Medical (2) Anxiety, generalized: Code(s): F41.1 - Generalized anxiety disorder Category: Medical (3) Chronic major depressive disorder, recurrent episode: Code(s): F33.9 - Major depressive disorder, recurrent, unspecified Category: Medical (4) Lipid disorder: Code(s): E78.9 - Disorder of lipoprotein metabolism, unspecified Category: Medical (5) Diabetes type 2, controlled: Code(s): E11.9 - Type 2 diabetes mellitus without complications Category: Medical Qualifiers: Diabetes mellitus termination clerk insulin use: without detention use Diabetes mellitus complication status: with neurologic complications Diabetes mellitus complication detail: with polyneuropathy Qualified Code(s): E11.42 - Type 2 diabetes mellitus with diabetic polyneuropathy (6) GERD (gastroesophageal reflux disease): Code(s): K21.9 - Gastro-esophageal reflux disease without esophagitis Category: Medical Qualifiers: Esophagitis presence: without esophagitis Qualified Code(s): K21.9 - Gastro-esophageal reflux disease without esophagitis (7) Renal stones: Comment: July 2020 ESWL left 10 mm UPJ stone Code(s): N20.0 - Calculus of kidney Category: Medical (8) Urgency incontinence: Code(s): N39.41 - Urge incontinence Category: Medical (9) Diabetic polyneuropathy associated with type 2 diabetes mellitus: Code(s): E11.42 - Type 2 diabetes mellitus with diabetic polyneuropathy Category: Medical (10) COPD (chronic obstructive pulmonary disease): Code(s): J44.9 - Chronic obstructive pulmonary disease, unspecified Category: Medical Qualifiers: COPD type: chronic bronchitis Chronic bronchitis type: mucopurulent Qualified Code(s): J41.1 - Mucopurulent chronic bronchitis (11) Ex-smoker: Code(s): Z87.891 - Personal history of nicotine dependence Category: Social Hx Plan Osteopenia: - The patient has a history of osteopenia and has not had a bone density scan in quite a while. Anxiety and Depression: - The patient has a history of anxiety and depression, for which she takes sertraline 100 mg. - She reports her mood is okay and is seeing a counselor following the passing of her grandson, which she finds somewhat helpful. - The patient wishes to continue her medication. Nephrolithiasis: - The patient has a history of renal calculi and is followed by a urologist, Dr. Lomax. - It is currently unknown if she still has kidney stones, and she is scheduled for an ultrasound next month for further evaluation. Diabetes Mellitus: - The patient has a history of diabetes, which is managed by an horse and wagon driver. - Her last hemoglobin A1c was 6.0%. - Her last set of labs was in April of this year, and her horse and wagon driver has ordered a new set for May of next year. Chronic Obstructive Pulmonary Disease (COPD): - The patient has a history of COPD and is managed by a slot service specialist, Dr. Colin. - She uses a Flovent inhaler and reports her breathing is fine. - She has a follow-up appointment with her geology faculty member in March. Dyslipidemia: - The patient has a history of dyslipidemia and takes atorvastatin 80 mg. Vitamin D Deficiency: - The patient has a history of vitamin D deficiency and is on a supplement. Hypertension: - The patient has a history of hypertension and takes lisinopril 5 mg. - Her blood pressure at the visit was 108/74 mmHg. Health Maintenance: - The patient underwent a mammogram in October of this year. - Her last colon cancer screening was a negative Cologuard test in July of last year, with the next one due in July 2026. - She sees an RIGGER THIRD annually and does not require Pap smears. - The patient sees her eye doctor, Dr. Juarez, every four months and has an upcoming appointment next month. - Her Tdap vaccine is up to date until 2027, but she is due for the flu, pneumonia 20, and shingles vaccines. Medical History: - Osteopenia - Anxiety and depression - Renal calculi - Diabetes - COPD - Dyslipidemia - Vitamin D deficiency - Hypertension - Arthritis of the wrist - History of smoking, quit 13 years ago Social History: - Substance Use: The patient is a former smoker, having quit 13 years ago. - Social Support: The patient is seeing a counselor for grief following the of her grandson. Health Maintenance - Last seen in April of this year. - CHOIR DIRECTOR: Seen annually, last visit was in January of the previous year. - Mammogram: Completed in October of this year. - Colon Cancer Screening: Patient uses Cologuard; last test was in July of the previous year and was negative. - Bone Density Scan: Has not been done in a while and is due. - Vaccinations: Tdap is up to date until 2027. - Vaccinations due: Flu, Pneumonia 20, and Shingles. - Eye Exam: Sees Dr. Juarez every four months, with the next appointment scheduled for next month. - Labs: Last labs were in April of this year; next set is scheduled for May of next year. [place] of Care - Saddle Lining Stitcher for diabetes management. - Dr. Colin (Trimmer Sawyer) for COPD. - Dr. Lomax (Urologist) for renal calculi. - RIGGER THIRD for annual exams. - Dr. Juarez (Hides Soaker) for eye care. - Counselor for grief support. - Referred to Dermatology for skin lesions. Medications - Atorvastatin 80 mg for dyslipidemia. - Vitamin D supplement. - Flovent inhaler for COPD. - Lisinopril 5 mg for hypertension. - Sertraline 100 mg for anxiety and depression. Patient Instructions - Stop taking lisinopril. - Check your blood pressure at a pharmacy and call the office in a few days to report the readings. - You are due for a flu shot, a pneumonia vaccine (Pneumonia 20), and a shingles vaccine. - Call the provided number to schedule an appointment with a conductor and engineer to have the bump on your head and moles on your face checked. - Talk to your horse and wagon driver about getting a bone density scan. - Your next follow-up visit will be in six months for your sertraline prescription, and your next annual physical will be in one year. . Orders: Referrals Dermatology Referral Z12.83 - Encounter for screening for malignant neoplasm of skin
--- OUTSIDE RECORDS SUMMARY | 2025-01-12 18:16 | XMS_ITS | Clinical Summary ---
Author Organization [facility] Address [address] [place] [id number] Phone Care Team Providers Care Sifter And Miller Name Role Phone Alma Cash MD Primary Care Provider [phone] Allergies Active Allergy Reactions Criticality Noted Date [...] VACCINE (#1) 2024 COVID-19 VACCINE (1 - 2024-2 6 season) 2024 RSV VACCINE (1 - 1-dose [...] topic Medical Devices Not on file Insurance [facility] MEDICARE REPLACEMENT JOSUE SILVERIO [id number] [facility] MEDICARE REPLACEMENT [facility] MEDICARE REPLACEMENT [facility] MEDICARE REPLACEMENT [facility] MEDICARE REPLACEMENT [facility]LY [facility] MEDICARE REPLACEMENT Care Teams Sifter And Miller Relationship Specialty Start Date End Date Alma Cash MD [address] [place] [id number] PCP - General Internal Medicine 04/01/22 Additional Source Comments The information contained in this document represents components of the legal health record. It is not the complete legal health record.[facility]
--- OUTSIDE RECORDS SUMMARY | 2025-01-12 18:16 | XMS_ITS | Clinical Summary ---
Author Organization [facility] [address] [facility] Address [address] [place] [address] Phone Care Team Providers Care Fingerprint Expert Name Role Phone Sarkis Mendoza MD Primary Care Provider Unava ilable Allergies No known active allergies Encounters Date Type Department Care Team Description 12/06/2024 10:12 AM EDT - 12/06/2024 11:59 PM EDT Hospital Encounter [facility] CT Scan [address] [place] [address] Encounter for screening for malignant neoplasm of respiratory organs; Personal history of nicotine dependence Discharge Disposition: Home or Self Care 11/17/2024 Telephone Lung Screening Program - [address] [place] [address] Zulma Casper MA from Last 3 Months Medical History Medical History Date Comments History of tobacco use 04/03/2017 DX:Histor y of tobacco use COPD (chronic obstructive pu lmonary disease) ([facility] V24, [facility] V28) 04/03/2017 DX:COPD (chronic o bstructive pulmonary disease) ([facility]) Depression 04/03/2017 DX:Depression Hyperlipidemia 04/03/2017 DX:Hyperlipidemi a Hypertension 04/03/2017 DX:Hypertension Social History Tobacco Use Types Packs/Day Years Used Date Smoking Tobacco: Former Cigarettes Comments Unknown Sex and Gender Information Value Date Recorded Sex Assigned at Not on file Legal Sex Female 7:58 PM EST Gender Identity Not on file Sexual Orientation Not on file Obstetrics History Plan of Treatment Health Maintenance Due Date Last Done Comments Breast Cancer Screening 1950 DTaP,Tdap,and Td Vaccines (1 - Tdap) 06/13/1971 Pneumococcal Vaccine: 50+ Years (1 of 2 - PCV) 06/13/1971 RSV Immunization Adult Patients (1 - Risk 50-74 years 1-dose series) 2002 Zoster Vaccines (1 of 2) 2002 Cholesterol Screening (Lipid Panel) 02/09/2022 Falls Risk Assessment 02/09/2022 Hepatitis C Screening 02/09/2022 Osteoporosis Screening (Bone Density Screening) 02/09/2022 Social Influencers of Health Screening 02/09/2022 Hypertension/CHF/CAD Annual BMP Blood Test 02/22/2022 Depression Screening 03/10/2024 COVID-19 Vaccine ( - 2023-2 5 season) 2024 Influenza Vaccine (#1) 2024 Colorectal Cancer Screening: FIT-DNA (Cologuard) 07/17/2025 07/17/2022, 07/17/2022, 11/19/2018 HIB Vaccines Aged Out No longer eligi [...] to complete this topic RSV Immunization Patients Under 20 months Aged Out No longer eligible b ased on patient's age to complete this topic Varicella Vaccines Aged Out No longer eligible based on patient's age to complete this topic Procedures Procedure Name Priority Date/Time Associated Diagnosis Comments CT LUNG SCREENING Routine 12/06/2024 10: 28 AM EDT Encounter for screening for malignant neoplasm of respiratory organs Personal history of nicotine dependence from Last 3 Months Results * CT Lung Screening (12/06/2024 10:28 AM EDT) Anatomical Region Laterality Modality Chest Computed Tomogra phy 12/14/2024 4:57 PM EDT Impressions 12/14/2024 5:05 PM EDT Impression: No suspicious developing pulmonary nodule. No significant change. Lung-RADS Category: Lung-RADS 2: Nodule(s) with benign appearance or behavior. Continue annual screening with Low Dose Chest CT in 12 months. [employer] [place] ([id number]) -------- FINAL REPORT -------- Dictated By: Chika Durant Dictated Date: 12/14/2024 16:57 ET Assigned Physician: Chika Durant Reviewed and Electronically Signed By: Chika Durant Signed Date: 12/14/2024 17:05 ET Workstation ID: [id number] Transcribed By: Self Edit Transcribed Date: 12/14/2024 16:57 ET Narrative 12/14/2024 5:05 PM EDT History: 74 year-old 50 pack-year former smoker, asymptomatic, for lung cancer screening. Quit smoking 9 years ago. Comparison: 12/05/23 Technique: Helical volumetric imaging of the thorax was performed, using low- dose technique, without IV contrast. DLP: 93.57 mGy/cm CTDIvol: 2.85 mGy [employer] Iterative reconstruction technique Findings: Lungs and Airways: The trachea and central bronchial tree remain patent. Diffuse bronchial wall thickening is again seen, consistent with bronchitis. 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 Minimal biapical juxtapleural reticular opacity is unchanged, consistent with scarring. A 4 mm solid, noncalcified nodule is seen in the right middle lobe (image 135 series 3), unchanged. Several smaller nodules are scattered elsewhere in both lungs, without significant change. No suspicious developing nodule is seen. Pleura: No pleural or pericardial effusions are seen. Base of neck, mediastinum and heart: The heart remains normal in size. Mild coronary artery calcification is noted. No developing thoracic lymphadenopathy is seen. Soft tissues: The overlying soft tissues are unremarkable. Abdomen: This study was performed without contrast and with lower than standard dose. These factors reduce the sensitivity for detection of small lesions in the upper abdomen. No significant abnormality is seen. Procedure Note Chika Durant MD - 12/14/2024 History: 74 year-old 50 pack-year former smoker, asymptomatic, for lungcancer screening. Quit smoking 9 years ago. Comparison: 12/05/23 Technique: Helical volumetric imaging of the thorax was performed, usinglow-dose technique, without IV contrast. DLP: 93.57 mGy/cm CTDIvol: 2.85 mGy [employer] Iterative reconstruction technique Findings: Lungs and Airways: The trachea and central bronchial tree remain patent.Diffuse bronchial wall thickening is again seen, consistent withbronchitis. Severe emphysematous destruction of the pulmonary parenchymais again noted. Minimal biapical juxtapleural reticular opacity is unchanged, consistentwith scarring. A 4 mm solid, noncalcified nodule is seen in the right middle lobe ( series 3), unchanged. Several smaller nodules are scattered elsewherein both lungs, without significant change. No suspicious developing nodule is seen. Pleura: No pleural or pericardial effusions are seen. Base of neck, mediastinum and heart: The heart remains normal in size.Mild coronary artery calcification is noted. No developing thoraciclymphadenopathy is seen. Soft tissues: The overlying soft tissues are unremarkable. Abdomen: This study was performed without contrast and with lower thanstandard dose. These factors reduce the sensitivity for detection of smalllesions in the upper abdomen. No significant abnormality is seen. IMPRESSION: Impression: No suspicious developing pulmonary nodule. No significant change. Lung-RADS Category: Lung-RADS 2: Nodule(s) with benign appearance orbehavior. Continue annual screening with Low Dose Chest CT in 12 months[place] ([id number]) -------- FINAL REPORT -------- Dictated By: Chika Durant Dictated Date: 12/14/2024 16:57 ET Assigned Physician: Chika Durant Reviewed and Electronically Signed By: Chika Durant Signed Date: 12/14/2024 17:05 ET Workstation ID: [id number] Transcribed By: Self Edit Transcribed Date: 12/14/2024 16:57 ET Walker Kebede MD IMG CT PROCEDURES Final Result from Last 3 Months Insurance [employer] MEDICARE Member Subscriber Plan / Payer (Ef fective 2019-Present) Name:Isabel Powersa Relation to Subscriber:Self Name:Porsche Powers Payer ID:[id number] Group ID:[id number] Type:Not on file Address: [place] [address] [place] [id number] Care Teams Fingerprint Expert Relationship Specialty Start Date End Date Sarkis Mendoza MD PCP - General Internal Medicine 01/15/18
== END 2025-01-12 16:07 | disposition home or self-care (01) ==
LOC: HO.HMCC 15:20
PROVIDERS: PCP Internal Medicine; Visit Provider Internal Medicine
DX: Z00.01 Encounter for general adult medical examination with abnormal findings (principal); E11.42 Type 2 diabetes mellitus with diabetic polyneuropathy; J41.1 Mucopurulent chronic bronchitis; F41.1 Generalized anxiety disorder; F33.9 Major depressive disorder, recurrent, unspecified; E78.9 Disorder of lipoprotein metabolism, unspecified; K21.9 Gastro-esophageal reflux disease without esophagitis; N20.0 Calculus of kidney; N39.41 Urge incontinence; Z87.891 Personal history of nicotine dependence

== ENCOUNTER → 2025-01-12 15:19 | Outpatient (BNVA) | payer OTHER, SELFPAY | PROVIDERS: PCP Internal Medicine; Visit Provider Internal Medicine | DX: Z00.01 Encounter for general adult medical examination with abnormal findings (principal); M85.80 Other specified disorders of bone density and structure, unspecified site; N20.0 Calculus of kidney; J44.9 Chronic obstructive pulmonary disease, unspecified; E78.5 Hyperlipidemia, unspecified; E55.9 Vitamin D deficiency, unspecified; I10 Essential (primary) hypertension; F41.1 Generalized anxiety disorder; F33.9 Major depressive disorder, recurrent, unspecified; E11.42 Type 2 diabetes mellitus with diabetic polyneuropathy; K21.9 Gastro-esophageal reflux disease without esophagitis; N39.41 Urge incontinence; J41.1 Mucopurulent chronic bronchitis; Z87.891 Personal history of nicotine dependence | CPT/HCPCS: 99397 ==

== ENCOUNTER 2025-02-28 11:11 | Outpatient (REF) | payer OTHER, SELFPAY ==
--- NOTE | ~2025-02-28 | US_ITS ---
CLINICAL HISTORY: N20.0 - Calculus of kidney US kidneys Comparison: 02/11/2023 Findings: Right kidney normal size and echotexture, 12.0 cm length. No hydronephrosis. Normal color flow. Left kidney normal size and echotexture, 11.1 cm length. No hydronephrosis. Normal color flow. Nonshadowing echogenic focus within the upper pole measuring up to 5 mm, and additional interpolar nonshadowing echogenic focus measuring up to 3 mm are nonspecific, possible nonobstructing calculus. A lower pole grossly simple appearing cyst measuring 21 x 20 x 15 mm, and additional likely parapelvic cysts measuring up to 15 mm are noted. Impression: 1. Small left renal cysts and possible nonobstructing left renal calculi. This document has been electronically signed by: Arnav Deal MD on 03/01/2025 13:43:17
--- OUTSIDE RECORDS SUMMARY | 2025-02-28 14:16 | XMS_ITS | Clinical Summary ---
Author Organization [facility] Address [address] [facility] [address] [place] [id number] Phone Care Team Providers Care Slip Cover Cutter Name Role Phone Alma Cash MD Primary Care Provider [phone] Allergies Active Allergy Reactions Criticality Noted Date [...] topic Medical Devices Not on file Insurance [facility] MEDICARE REPLACEMENT [place] [id number] [facility] MEDICARE REPLACEMENT [facility] MEDICARE REPLACEMENT [facility] MEDIC[facility] REPLACEMENT [facility] MEDICARE REPLACEMENT [facility] [employer] MEDICARE REPLACEMENT Care Teams Slip Cover Cutter Relationship Specialty Start Date End Date Alma Cash MD [address] [place] [address] PCP - General Internal Medicine 04/01/22 Additional Source Comments The information contained in this document represents components of the legal health record. It is not the complete legal health record.[facility]
--- OUTSIDE RECORDS SUMMARY | 2025-02-28 14:16 | XMS_ITS | Clinical Summary ---
Author Organization [facility] [address] [facility] Address [address] [place] [address] Phone Care Team Providers Care Landing Signal Officer Name Role Phone Sarkis Mendoza MD Primary Care Provider [phone] Allergies No known active allergies Encounters Date Type Department Care Team Description 12/06/2024 10:12 AM EDT - 12/06/2024 11:59 PM EDT Hospital Encounter [facility] CT Scan [address] [place] [address] Encounter for screening for malignant neoplasm of respiratory organs; Personal history of nicotine dependence Discharge Disposition: Home or Self Care from Last 3 Months Medical History Medical History Date Comments History of tobacco use 04/03/2017 DX:Histor y of tobacco use COPD (chronic obstructive pu lmonary disease) ([facility] V24, [facility] V28) 04/03/2017 DX:COPD (chronic o bstructive pulmonary disease) ([facility]) Depression 04/03/2017 DX:Depression Hyperlipidemia 04/03/2017 DX:Hyperlipidemi [...] Risk Assessment 02/09/2022 Hepatitis C Screening 02/09/2022 Medicare Annual Wellness Visit 02/09/2022 Osteoporosis Screening (Bone Density Screening) 02/09/2022 Social Influencers of Health Screening 02/09/2022 Hypertension/CHF/CAD Annual BMP Blood Test 02/22/2022 Depression Screening 03/10/2024 COVID-19 Vaccine ( - 2024-2 6 season) 2024 Influenza Vaccine (#1) 2024 Colorectal [...] Chest CT in 12 months. [facility] [place] ([id number]) -------- FINAL REPORT -------- Dictated By: Chika Durant Dictated Date: 12/14/2024 16:57 ET Assigned Physician: Chika Durant Reviewed and Electronically Signed By: Chika Durant Signed Date: 12/14/2024 17:05 ET Workstation ID: [id number] Transcribed By: Self Edit Transcribed Date: 12/14/2024 16:57 ET Narrative 12/14/2024 5:05 PM EDT History: 74 year-old 50 pack-year former smoker, asymptomatic, for lung cancer screening. Quit smoking 9 years ago. Comparison: 12/05/23 Technique: Helical volumetric imaging of the thorax was performed, using low- dose technique, without IV contrast. DLP: 93.57 mGy/cm CTDIvol: 2.85 mGy [employer] Iterative reconstruction technique Findings: Lungs and Airways: [...] contrast. DLP: 93.57 mGy/cm CTDIvol: 2.85 mGy [employer] Iterative reconstruction technique Findings: Lungs and Airways: [...] Chest CT in 12 months. [facility] [place] ([id number]) -------- FINAL REPORT -------- Dictated By: Chika Durant Dictated Date: 12/14/2024 16:57 ET Assigned Physician: Chika Durant Reviewed and Electronically Signed By: Chika Durant Signed Date: 12/14/2024 17:05 ET Workstation ID: [id number] Transcribed By: Self Edit Transcribed Date: 12/14/2024 16:57 ET us Walker Kebede MD IM CT PROCEDURES Final Result from Last 3 Months Insurance [employer] MEDICARE Member Subscriber Plan / Payer (Ef fective 2019-Present) Name:Porsche Powers Relation to Subscriber:Self Name:Porsche Powers Payer ID:[id number] Group ID:[id number] Type:Not on file Address: [place] [address] [place] [id number] Care Teams Landing Signal Officer Relationship Specialty Start Date End Date Sarkis Mendoza MD PCP - General Internal Medicine 01/15/18
== END 2025-02-28 11:12 | disposition home or self-care (01) ==
LOC: HO.HMGCX 11:11
PROVIDERS: PCP Internal Medicine; Visit Provider Nurse Practitioner Family
DX: N20.0 Calculus of kidney (principal)
CPT/HCPCS: 76775

== ENCOUNTER → 2025-02-28 11:12 | Outpatient (BNV) | payer OTHER, SELFPAY | PROVIDERS: PCP Internal Medicine; Visit Provider Radiology Diagnostic Radiology | DX: N28.1 Cyst of kidney, acquired (principal) | CPT/HCPCS: 76775 ==